=== PATIENT | female | born 1945 | race Caucasian/White ===

== ENCOUNTER 2020-02-13 15:01 | Inpatient (IN) | payer MEDICARE ==
[2020-02-13] MEDS ORDERED: Iopamidol-370 76% 500 ML 1 ML ONE (15:29)
[2020-02-13] MEDS ORDERED: Morphine 4 MG/ML VIAL ONE (15:32)
[2020-02-13 15:39] LABS: #Eosinphils 0.1 thou/uL (0.0-0.7); #Lymphocytes 1.8 thou/uL (1.20-3.40); #Monocytes 0.7 thou/uL (0.11-0.59); #Neutrophils 9.3 thou/uL (1.40-6.50); %Basophils 0.1 % (0.0-1.0); %Eosinophils 1.2 % (0.0-10.0); %Lymphocytes 14.9 % (21.0-51.0); %Monocytes 5.6 % (0.0-10.0); %Neutrophils 78.2 % (42.0-75.0); Hemoglobin 7.5 g/dL (12.0-16.0); Mean Corpuscular HGB CONC 33.6 g/dL (32.0-36.0); Mean Corpuscular Hemoglobin 28.3 pg (27.0-31.0); Mean Corpuscular Volume 84.1 fL (78.0-98.0); Mean Platelet Volume 7.4 fL (7.4-10.4); Platelet Count 262 thou/uL (130-400); RBC Distribution Width 14.8 % (11.5-14.5); Red Blood Cell (RBC) Count 2.67 mill/uL (4.20-5.40); White Blood Cell (WBC) Count 11.9 thou/uL (4.8-10.8)
[2020-02-13 15:57] LABS: ALT (SGPT) Less than 7 U/L (8-55); AST (SGOT) 12 U/L (5-34); Albumin 2.6 g/dL (3.4-4.8); Alkaline Phosphatase 72 U/L (40-110); Anion Gap 14 mmol/L (10-20); BUN (Urea Nitrogen) 19 mg/dL (9.8-20.1); Bilirubin, Total 0.3 mg/dL (0.2-1.2); Calc. Creatinine Clearance 0 mL/min (70-130); Calcium 8.6 mg/dL (7.8-10.44); Carbon Dioxide 24 mmol/L (23-31); Chloride 100 mmol/L (98-107); Estimated GFR-MDRD 66; Globulin 3.4 g/dL (2.4-3.5); Glucose 177 mg/dL (83-110); Potassium 3.2 mmol/L (3.5-5.1); Sodium 135 mmol/L (136-145)
[2020-02-13] MEDS ORDERED: Sodium Chloride 0.9% 100 ML ONE (16:02)
[2020-02-13] MEDS ORDERED: Cefepime 2 GM VIAL ONE (16:02)
[2020-02-13] MEDS ORDERED: Fentanyl 100 MCG/2 ML VIAL ONE (16:32)
[2020-02-13] MEDS ORDERED: Potassium Chloride 20 MEQ TAB ONE ×3 (16:32→22:20)
[2020-02-13] MEDS ORDERED: Vancomycin 1 GM/200 ML BAG ONE (16:32)
[2020-02-13 16:34] LABS: CK (CPK) 76 U/L (29-168); Lipase 12 U/L (8-78)
[2020-02-13] MEDS ORDERED: Magnesium 2 GM/50 ML BAG (IN WATER) ONE (16:44)
--- NOTE | 2020-02-13 17:33 | RAD ---
PORTABLE CHEST: 02/13/20 PROVIDED CLINICAL HISTORY: Dyspnea. FINDINGS: Comparison 02/01/20. Cardiac silhouette remains enlarged. Left upper extremity PICC line is noted, the tip of which termi nates in the expected location of SVC. No focal consolidation, pleural fluid or pneumothorax apparent. IMPRESSION: Cardiomegaly without evidence for an acute cardiopulmonary process. POS: MALLORY
[2020-02-13 17:38] LABS: Bilirubin Negative (Negative); Blood, Urine Trace (Negative); Clarity Extra Turbid (Clear); Glucose, Urine (Dipstick) Normal (Negative); Ketone, Urine Negative (Negative); Leukocyte 500 Leu/uL (Negative); Mucous/LPF 1+ LPF (<2+); Nitrite Negative (Negative); Protein, Urine (Dipstick) 50 mg/dL (Neg-Trace); Specific Gravity, Urine 1.023 (1.002-1.036); Urobilinogen Normal mg/dL (Less than 2); WBC/HPF Greater than 50 HPF (0-3); Yeast-Budding 4+ HPF (None Seen)
[2020-02-13 17:43] LABS: Bacteria/HPF 3+ HPF (None Seen); Calcium Oxalate Crystals 1+ HPF (None Seen); Squamous Epithelial 21-50 HPF (0-3)
--- NOTE | 2020-02-13 18:03 | CT ---
CTA Angio Chest W WO Con 02/13/2020 5:41 PM Indication: Rule out PE, history of hypotension and sacral osteomyelitis Technique: Multiple CTA images were obtained of the thorax with IV contrast. 3-D rendering: MIP jazmine nstructed images were created and reviewed. Comparison: No relevant prior studies available. Findings: Pulmonary arteries: No central or segmental pulmonary embolus is evident. Heart and Aorta: There is moderate cardiomegaly. There is coronary artery and thoracic aortic calcif ications. Mediastinum:There is contrast within the esophagus may reflect dysmotility or reflux. Lungs:There is mild left basilar atelectasis. There is calcified granuloma in the right lower lobe. Pleural space: There is a small left pleural effusion Upper Abdomen: Cirrhotic morphology of liver with splenomegaly Osseous Structures: There is scattered degenerative and osteoarthritic change present. There is diff use osteopenia. No acute fracture or subluxation demonstrated. Soft tissues:No abnormality. Other findings:None. Impression: No central or segmental pulmonary embolus. Moderate cardiomegaly with small left pleural effusion with basilar atelectasis. Cirrhosis with splenomegaly
--- NOTE | 2020-02-13 18:29 | CT ---
CT ABDOMEN AND PELVIS WITH IV CONTRAST: 02/13/20 PROVIDED CLINICAL HISTORY: Sacral wound. FINDINGS: Correlation is made with CT examination dated 03/30/19. There is a partially visualized left pleural effusion. The liver, spleen, pancreas, kidneys, and adrenal glands demonstrate no significant abnormality. Ther e is no bowel dilatation, free fluid, or free air apparent. Changes of mesh hernia repair seen involv ing the anterior abdominal wall in the upper abdomen. Similar changes are seen involving the infraumb ilical region. There is a large area of deficiency of cutaneous tissues and subcutaneous fat at the caudal aspects of marlen cleft. There is fragmentation and displacement of the coccyx, similar to prior study. The d ecubitus ulcer extends adjacent to the ischiorectal fossa fat. There is confluent soft tissue density inseparable from the anterior aspects of the sacral decubitus ulcer and posterior aspects of the rec martha. There is stranding within the presacral fat. There is poor definition to the dorsal cortex of the S2 and S3 segments, similar to prior, and possib ly on the basis of Tarlov cyst formation. There is no evidence for a well-defined fluid collection to suggest abscess. The osseous structures demonstrate no additional evidence for essentially acute abnormality. Degenera tive changes are seen. IMPRESSION: Extensive sacral decubitus ulcer, with a fistulous connection with the rectum not excluded. There is no evidence for focal fluid collections to suggest abscess. Chronic fragmentation and displacement of the coccyx presumably reflects osteomyelitis but this appears similar to prior study. POS: MALLORY
[2020-02-13] MEDS ORDERED: Acetaminophen 325 MG TAB PO PRN (20:01)
[2020-02-13] MEDS ORDERED: Acetaminophen 650 MG Suppository PR PRN (20:01)
--- NOTE | 2020-02-13 20:31 | PDOC.HHP ---
Hospitalist HPI - History of Present Illness sacral ulcer pain History of Present Illness: Case of an 74-year-old female with pmhx of cad chf dm who was recently admitted due to infected sacral ulcer stage 4 who presents from [facility] with complaints of sacral pain. Apparently patient was requesting IV morphine and refusing po meds refering they did not alleviate the pain. patient is currently on treatment of OM with rocephin flagyl and daptomycin. debridment was recommended in last admission but patient refused, there was some bedside debridment but pt was takeng to the ER. patient denies any fever chills nausea vomiting, does refer sacral pain 01/22 Hospitalist ROS - Review of Systems All other systems reviewed; all pertinent +/- noted in HPI/Subj Hospitalist History - Past Surgical History Past Surgical History: reports: Hernia Repair Other Surgical History: anal fissure repair, uterine abaltion - Family History Family History: reports: no pertinent history - Social History Smoking Status: Never smoker Alcohol: reports: None Drugs: reports: none - Exam General Appearance: NAD, awake alert Eye: PERRL, anicteric sclera ENT: normocephalic atraumatic, no oropharyngeal lesions Neck: supple, symmetric, no JVD Heart: RRR, no murmur, no gallops, no rubs Respiratory: CTAB, no wheezes, no rales Gastrointestinal: soft, non-tender, non-distended, normal bowel sounds Extremities: no cyanosis, no clubbing Skin: normal turgor, no lesions, no rashes Skin - other findings: stage 4 sacral ulcer Musculoskeletal: normal tone Psychiatric: normal affect, normal behavior, oriented to person, oriented to place Hospitalist Results - Labs Result Diagrams: 02/13/20 15:28 02/13/20 15:28 Lab results: WBC 11.9 thou/uL (4.8-10.8) H 02/13/20 15:28 Hgb 7.5 g/dL (12.0-16.0) L 02/13/20 15:28 Hct 22.4 % (36.0-47.0) L 02/13/20 15:28 MCV 84.1 fL (78.0-98.0) 02/13/20 15:28 Plt Count 262 thou/uL (130-400) 02/13/20 15:28 Neutrophils % 78.2 % (42.0-75.0) H 02/13/20 15:28 Sodium 135 mmol/L (136-145) L 02/13/20 15:28 Potassium 3.2 mmol/L (3.5-5.1) L 02/13/20 15:28 Chloride 100 mmol/L (98-107) 02/13/20 15:28 Carbon Dioxide 24 mmol/L (23-31) 02/13/20 15:28 BUN 19 mg/dL (9.8-20.1) 02/13/20 15:28 Creatinine 0.84 mg/dL (0.6-1.1) 02/13/20 15:28 Glucose 177 mg/dL (83-110) H 02/13/20 15:28 Lactic Acid 1.4 mmol/L (0.5-2.2) 02/13/20 15:28 Calcium 8.6 mg/dL (7.8-10.44) 02/13/20 15:28 Total Bilirubin 0.3 mg/dL (0.2-1.2) 02/13/20 15:28 AST 12 U/L (5-34) 02/13/20 15:28 ALT Less than 7 U/L (8-55) L 02/13/20 15:28 Alkaline Phosphatase 72 U/L (40-110) 02/13/20 15:28 Ammonia 48 umol/L (18-72) 02/13/20 18:27 Creatine Kinase 76 U/L (29-168) 02/13/20 16:11 Troponin I 0.027 ng/mL (< 0.028) 02/13/20 16:11 B-Natriuretic Peptide 53.6 pg/mL (0-100) 02/13/20 16:11 Serum Total Protein 6.0 g/dL (6.0-8.3) 02/13/20 15:28 Albumin 2.6 g/dL (3.4-4.8) L 02/13/20 15:28 Lipase 12 U/L (8-78) 02/13/20 16:11 Urine Ketones Negative mg/dL (Negative) 02/13/20 17:00 Urine Blood Trace (Negative) A 02/13/20 17:00 Urine Nitrite Negative (Negative) 02/13/20 17:00 Ur Leukocyte Esterase 500 Tyson/uL (Negative) A 02/13/20 17:00 Urine RBC 7-10 HPF (0-3) A 02/13/20 17:00 Urine WBC Greater than 50 HPF (0-3) A 02/13/20 17:00 Ur Squamous Epith Cells 21-50 HPF (0-3) A 02/13/20 17:00 Urine Bacteria 3+ HPF (None Seen) A 02/13/20 17:00 Hospitalist H&P A/P - Problem (1) Decubitus ulcer, stage 4 with infection Code(s): L89.94 - PRESSURE ULCER OF UNSPECIFIED SITE, STAGE 4; L08.9 - LOCAL INFECTION OF THE SKIN AND SUBCUTANEOUS TISSUE, UNSP Status: Acute (2) Bladder dysfunction Code(s): N31.9 - NEUROMUSCULAR DYSFUNCTION OF BLADDER, UNSPECIFIED Status: Acute (3) Diabetes mellitus Code(s): E11.9 - TYPE 2 DIABETES MELLITUS WITHOUT COMPLICATIONS Status: Acute (4) Hypokalemia Code(s): E87.6 - HYPOKALEMIA Status: Acute (5) Hypothyroidism Code(s): E03.9 - HYPOTHYROIDISM, UNSPECIFIED Status: Acute (6) Congestive heart failure Code(s): I50.9 - HEART FAILURE, UNSPECIFIED Status: Acute - Plan Plan: patient with the stated pmhx who presents due to pain on infected sacral ulcer infected sacral ulcer with OM - cotinue with rocephin + flagyl and daptomycin - wound care consulted - surgeon consulted - pain management uti - u/a consistent with uti - these could normal findings due to chronic thibodeaux use - should be covered w current abx regime dm - acc + ss hypothyroidism - continue synthroid chf - continue bb, acei stain asa and lasix,
[2020-02-13] MEDS ORDERED: Potassium Chloride 20 MEQ TAB PO SCH (20:45)
[2020-02-13] MEDS ORDERED: cefTRIAXone\\ROCEPHIN 1 GM in Sodium Chloride 0.9% 100 ML IVPB SCH (21:00)
[2020-02-13] MEDS ORDERED: HYDROcodone/Acetaminophen 7.5/325 mg Tablet ONE (22:20)
[2020-02-13] MEDS ORDERED: cefTRIAXone\\ROCEPHIN 1 GM VIAL ONE (22:20)
[2020-02-13] MEDS ORDERED: DAPTOmycin 500 MG in Sodium Chloride 0.9% 100 ML IVPB SCH (23:00)
[2020-02-13] MEDS ORDERED: HumaLOG 300 UNITS/3 ML VIAL SC PRN (23:41)
[2020-02-13] MEDS ORDERED: Dextrose 50% Abboject 50 ML SYRINGE SLOW IVP PRN (23:41)
[2020-02-13] MEDS ORDERED: Dextrose 5% in Water 1,000 ML IV PRN (23:41)
[2020-02-14] MEDS: metroNIDAZOLE 500 MG in Premix Bag 1 BAG IVPB SCH ×4 (00:41→22:45)
[2020-02-14] MEDS ORDERED: Sodium Chloride 0.9% 500 ML IV SCH ×2 (03:00→03:15)
[2020-02-14 05:17] LABS: ALT (SGPT) 7 U/L (8-55); AST (SGOT) 11 U/L (5-34); Albumin 2.4 g/dL (3.4-4.8); Alkaline Phosphatase 57 U/L (40-110); Anion Gap 13 mmol/L (10-20); BUN (Urea Nitrogen) 16 mg/dL (9.8-20.1); Bilirubin, Total 0.3 mg/dL (0.2-1.2); CK (CPK) 59 U/L (29-168); CRP (Inflammatory) 4.75 mg/dL (= or < 0.5); Calc. Creatinine Clearance 88 mL/min (70-130); Calcium 8.1 mg/dL (7.8-10.44); Carbon Dioxide 22 mmol/L (23-31); Chloride 106 mmol/L (98-107); Estimated GFR-MDRD 79; Globulin 3.2 g/dL (2.4-3.5); Glucose 137 mg/dL (83-110); Protein, Total 5.6 g/dL (6.0-8.3); Sodium 137 mmol/L (136-145)
[2020-02-14 05:18] LABS: Eosinophils 1 % (0-10); Hemoglobin 8.6 g/dL (12.0-16.0); Lymphocytes 11 % (21-51); MDiff Complete? YES; Mean Corpuscular HGB CONC 33.9 g/dL (32.0-36.0); Mean Corpuscular Volume 85.7 fL (78.0-98.0); Mean Platelet Volume 7.9 fL (7.4-10.4); Metamyelocyte 1 % (0-0); Monocytes 9 % (0-10); Neutrophil 78 % (42-75); Platelet Count 194 thou/uL (130-400); Platelet Morphology Comment Appears Adequate; RBC Distribution Width 14.4 % (11.5-14.5); RBC Morphology Normal; Red Blood Cell (RBC) Count 2.95 mill/uL (4.20-5.40); White Blood Cell (WBC) Count 8.7 thou/uL (4.8-10.8)
[2020-02-14] MEDS: Levothyroxine Sodium 75 MCG TAB PO SCH (05:59)
[2020-02-14] MEDS ORDERED: Fentanyl 100 MCG/2 ML VIAL ONE (06:33)
[2020-02-14] MEDS ORDERED: FLU VACC QS2020-21(65YR UP)/PF 240 MCG/0.7 ML SYRINGE IM ONE (09:00)
[2020-02-14] MEDS: Losartan 25 MG TAB PO SCH (09:51)
[2020-02-14] MEDS: Aspirin 81 mg Enteric Coated Tablet PO SCH (09:52)
[2020-02-14] MEDS: Furosemide 40 MG TAB PO SCH (09:52)
[2020-02-14] MEDS: Carvedilol 3.125 MG TAB PO SCH ×2 (09:52→18:29)
--- NOTE | 2020-02-14 13:28 | PDOC.HOSPP ---
- Subjective Encounter Date: 02/14/20 Subjective: Pt has no new complaints. Says she's willing to have I and D this time. - Objective Vital Signs & Weight: Vital Signs (12 hours) Temp Pulse Pulse Resp BP BP Pulse Ox 02/14/20 11:45 97.6 F 85 12 93/53 L 100 02/14/20 07:41 97.4 F L 86 16 115/59 L 100 02/14/20 07:40 100 02/14/20 03:48 100/58 L 02/14/20 02:25 97.6 F 63 18 89/43 L 100 Weight Weight 179 lb 7 oz I&O: 02/13/20 02/14/20 02/15/20 07:59 06:59 06:59 Intake Total Output Total Balance Result Diagrams: 02/14/20 04:17 02/14/20 04:17 Additional Labs: Accuchecks 02/14/20 06:25 POC Glucose 112 H Hospitalist ROS - Review of Systems Constitutional: denies: fever, chills, sweats, weakness, malaise, other Eyes: denies: pain, vision change, conjunctivae inflammation, eyelid inflammation, redness, other ENT: denies: ear pain, ear discharge, nose pain, nose discharge, nose congestion, mouth pain, mouth swelling, throat pain, throat swelling, other Respiratory: denies: cough, dry, shortness of breath, hemoptysis, SOB with excertion, pleuritic pain, sputum, wheezing, other Cardiovascular: denies: chest pain, palpitations, orthopnea, paroxysmal noc. dyspnea, edema, light headedness, other Gastrointestinal: denies: nausea, vomiting, abdominal pain, diarrhea, constipation, melena, hematochezia, other Genitourinary: denies: dysuria, frequency, incontinence, hematuria, retention, other Musculoskeletal: reports: other (sacral pain). denies: neck pain, shoulder pain, arm pain, back pain, hand pain, leg pain, foot pain Skin: reports: other (Decub ulcer) Neurological: denies: weakness, numbness, incoordination, change in speech, confusion, seizures, other - Medication Medications: Active Medications Generic Name Dose Route Start Last Admin Trade Name Freq PRN Reason Stop Dose Admin Aspirin 81 mg 02/14/20 09:00 02/14/20 09:52 Aspirin 81 Mg Enteric Coated Tablet PO 81 mg DAILY AUGUSTO Administration Carvedilol 3.125 mg 02/14/20 08:00 02/14/20 09:52 Carvedilol 3.125 Mg Tab PO 3.125 mg BID-WM AUGUSTO Administration Furosemide 40 mg 02/14/20 09:00 02/14/20 09:52 Furosemide 40 Mg Tab PO 40 mg DAILY AUGUSTO Administration Ceftriaxone Sodium 1 gm/ 100 mls @ 200 mls/hr 02/13/20 21:00 02/14/20 00:25 Sodium Chloride IVPB Not Given Q24HR AUGUSTO Metronidazole 500 mg/ Device 100 mls @ 100 mls/hr 02/13/20 22:00 02/14/20 05:58 IVPB 100 mls Q8HR AUGUSTO Administration Daptomycin 500 mg/ Sodium 100 mls @ 200 mls/hr 02/13/20 23:00 02/14/20 00:43 Chloride IVPB 100 mls Q24HR AUGUSTO Administration Levothyroxine Sodium 75 mcg 02/14/20 06:00 02/14/20 05:59 Levothyroxine Sodium 75 Mcg Tab PO Not Given 0600 [facility] Losartan Potassium 50 mg 02/14/20 09:00 02/14/20 09:51 Losartan 25 Mg Tab PO 50 mg DAILY AUGUSTO Administration - Exam General Appearance: NAD, awake alert Eye: PERRL, anicteric sclera ENT: normocephalic atraumatic, no oropharyngeal lesions Neck: supple, symmetric, no JVD, no thyromegaly Heart: RRR, no murmur, no gallops, no rubs Respiratory: CTAB, no wheezes, no rales, no ronchi Gastrointestinal: soft, non-tender, non-distended, normal bowel sounds Extremities: no cyanosis, no clubbing, no edema Skin: normal turgor, no lesions Skin - other findings: Decub ulcer. pls see pics Neurological: cranial nerve grossly intact, no focal deficits Musculoskeletal: normal strength, no muscle wasting Psychiatric: normal affect, normal behavior, A&O x 3 Hosp A/P (1) Congestive heart failure Code(s): I50.9 - HEART FAILURE, UNSPECIFIED Status: Acute Qualifiers: Heart failure chronicity: chronic Plan: Stable, cont med mgt. (2) Decubitus ulcer, stage 4 with infection Code(s): L89.94 - PRESSURE ULCER OF UNSPECIFIED SITE, STAGE 4; L08.9 - LOCAL INFECTION OF THE SKIN AND SUBCUTANEOUS TISSUE, UNSP Status: Acute Plan: Pt say she is willing for I and D. Will await Sx eval and recs (3) Degenerative joint disease Code(s): M19.90 - UNSPECIFIED OSTEOARTHRITIS, UNSPECIFIED SITE Status: Acute Plan: Cont pain mgt. 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 (5) Hypothyroidism Code(s): E03.9 - HYPOTHYROIDISM, UNSPECIFIED Status: Acute Qualifiers: Hypothyroidism type: unspecified Qualified Code(s): E03.9 - Hypothyroidism, unspecified Plan: Cont synthroid. Check TSH. (6) Osteomyelitis Code(s): M86.9 - OSTEOMYELITIS, UNSPECIFIED Status: Acute Qualifiers: Osteomyelitis location: other site Plan: Awaiting Sx eval. Pt may need and I and D. Will consult ID as well. - Plan continue antibiotics, DVT proph w/heparin PPx: SCDs and Heparin. CODE: FUll. Dispo: Await Sx eval.
[2020-02-14] MEDS: HYDROcodone/Acetaminophen 7.5/325 mg Tablet PO PRN (14:34)
[2020-02-14] MEDS ORDERED: DAPTOmycin 500 MG VIAL SLOW IVP SCH (17:45)
--- NOTE | 2020-02-14 18:10 | PDOC.CONS ---
- Consultation Encounter Date: 02/14/20 CHIEF COMPLAINT: Sacral pain HISTORY OF PRESENT ILLNESS: 74-year-old female with a complex medical history who was recently discharged with a stage IV sacral ulcer. I evaluated this patient at the [facility] 2 weeks ago. She was discharged yesterday to a SNF. During her last admission, she was evaluated by surgery, infectious disease, and wound care. Initially, the patient was reluctant to consider surgical debridement. She was seen by wound care and underwent bedside debridement with VAC placement. Dr. Gar evaluated the patient and recommended an antibiotic course due to her osteomyelitis. According to the patient, she woke up and her wound VAC had been removed. She was transferred back to the hospital with complaints of sacral pain. REVIEW OF SYSTEMS: 12 point review of systems obtained and is negative except as stated in the history of present illness PAST MEDICAL HISTORY: Coronary artery disease Congestive heart failure Diabetes mellitus Impaired mobility Severe degenerative joint disease and chronic pain PAST SURGICAL HISTORY: Hernia repair, fistulotomy, uterine ablation FAMILY HISTORY: Denies pertinent history SOCIAL HISTORY Never smoker, denies illicit drug use, endorses occasional alcohol consumption. ALLERGIES: Meperidine and penicillin PHYSICAL EXAM: Vital Signs: HR [ ] BP [ ] T [ ] RR [ ] SpO2 [ ] General: Alert and oriented, no acute distress ENT: Sclera anicteric, pupils equal and reactive, mucous membranes moist Neck: No jugular venous distention, trachea midline Cardiovascular: Regular rate and rhythm Pulmonary: Clear to auscultation Abdominal: Soft, nondistended, nontender Genitourinary: Normal anatomy Rectal: Deferred Sacrum: Large stage IV decubitus ulcer with superficial necrosis. Decreased discharge and purulence from last examination. Integument: No abnormal rashes or lesions Musculoskeletal: No gross deformities or edema, normal range of motion LABORATORY: Laboratory analysis reviewed and demonstrates a normal white blood cell count of 8.7. Hemoglobin stable at 8.6 IMAGING: Chest x-ray reviewed as well as radiologist interpretation and demonstrates stable cardiomegaly. Computed tomography of the abdomen and pelvis demonstrates a stage IV decubitus ulcer with associated osteomyelitis that is stable from her prior imaging. ASSESSMENT: 74-year-old comorbid female with stage IV sacral ulcer. PLAN: Recommend wound care consultation for repeat bedside debridement and VAC placement. Resume antibiotic therapy from previous infectious disease recommendations. We will continue to follow and consider surgical debridement if we are unable to achieve improvement with less invasive techniques. If we move towards surgical debridement, will require cardiac evaluation and clearance. Her last echocardiogram performed on February 02, 2020 demonstrates an ejection fraction of 35 to 39% with global systolic dysfunction. It is questionable whether she could tolerate a procedure in the prone position.
[2020-02-14] MEDS: traMADol HCl 50 MG TAB PO SCH ×2 (18:28→18:31)
[2020-02-14] MEDS: DAPTOmycin 500 MG in Sodium Chloride 0.9% 100 ML IVPB SCH (22:33)
[2020-02-14] MEDS: Naproxen 500 MG TAB PO SCH (22:38)
[2020-02-14] MEDS: Atorvastatin Calcium 20 MG TAB PO SCH (22:38)
[2020-02-14] MEDS: cefTRIAXone\\ROCEPHIN 2 GM in Sodium Chloride 0.9% 100 ML IVPB SCH (22:45)
[2020-02-15] MEDS: traMADol HCl 50 MG TAB PO SCH ×4 (00:43→18:21)
[2020-02-15 05:07] LABS: #Eosinphils 0.2 thou/uL (0.0-0.7); #Lymphocytes 1.6 thou/uL (1.20-3.40); #Monocytes 0.5 thou/uL (0.11-0.59); #Neutrophils 5.9 thou/uL (1.40-6.50); %Basophils 0.1 % (0.0-1.0); %Eosinophils 2.1 % (0.0-10.0); %Lymphocytes 19.3 % (21.0-51.0); %Monocytes 6.6 % (0.0-10.0); %Neutrophils 71.8 % (42.0-75.0); Hemoglobin 8.3 g/dL (12.0-16.0); Mean Corpuscular HGB CONC 33.4 g/dL (32.0-36.0); Mean Corpuscular Hemoglobin 28.6 pg (27.0-31.0); Mean Corpuscular Volume 85.4 fL (78.0-98.0); Mean Platelet Volume 7.5 fL (7.4-10.4); Platelet Count 259 thou/uL (130-400); RBC Distribution Width 14.8 % (11.5-14.5); Red Blood Cell (RBC) Count 2.92 mill/uL (4.20-5.40); White Blood Cell (WBC) Count 8.2 thou/uL (4.8-10.8)
[2020-02-15 05:28] LABS: Anion Gap 12 mmol/L (10-20); BUN (Urea Nitrogen) 11 mg/dL (9.8-20.1); Calc. Creatinine Clearance 100 mL/min (70-130); Calcium 8.4 mg/dL (7.8-10.44); Carbon Dioxide 24 mmol/L (23-31); Chloride 104 mmol/L (98-107); Estimated GFR-MDRD 85; Glucose 106 mg/dL (83-110); Potassium 4.1 mmol/L (3.5-5.1); Sodium 136 mmol/L (136-145)
[2020-02-15] MEDS: Levothyroxine Sodium 75 MCG TAB PO SCH ×2 (06:23→06:24)
[2020-02-15] MEDS: metroNIDAZOLE 500 MG in Premix Bag 1 BAG IVPB SCH ×3 (06:23→21:21)
[2020-02-15] MEDS: Carvedilol 3.125 MG TAB PO SCH ×2 (09:11→18:21)
[2020-02-15] MEDS: Clopidogrel Bisulfate 75 MG TAB PO SCH (09:11)
[2020-02-15] MEDS: Furosemide 40 MG TAB PO SCH (09:11)
[2020-02-15] MEDS: Potassium Chloride 10 MEQ TAB PO SCH (09:11)
[2020-02-15] MEDS: Losartan 25 MG TAB PO SCH (09:11)
[2020-02-15] MEDS: Naproxen 500 MG TAB PO SCH (09:11)
[2020-02-15] MEDS: Aspirin 81 mg Enteric Coated Tablet PO SCH (09:12)
--- NOTE | 2020-02-15 10:22 | PDOC.BPN ---
- Brief Progress Note Encounter Date: 02/15/20 Encounter Time: 10:22 Doing well. No acute events overnight EXAM: VS: T 97.6 HR 69 BP 100/51 RR 16 SpO2 [ ] General: Alert and oriented, no acute distress, resting comfortably Pulmonary: No dyspnea or difficulty breathing Abdomen: Soft, non-distended, nontender. CV: Regular rate and rhythm, palpable distal pulses Extremities: No edema Sacrum: Stable decubitus ulcer I/O: [ ] oral intake [ ] UOP LABORATORY / IMAGING: White blood cell count 8.2. Hemoglobin 8.3, otherwise grossly normal PLAN: 74-year-old female with large, stage IV sacral decubitus ulcer with osteomyelitis of the distal sacrum and coccyx. We will plan for operative debridement, wound VAC placement, and coccygectomy. The relative risks and benefits of this procedure were discussed in detail with the patient, specifically addressing the risk of wound complications and the need for additional procedures. Informed consent was obtained. Discussed with hospitalist team, will obtain cardiac clearance preoperatively. Procedure tentatively scheduled for February 16, 2020
--- NOTE | 2020-02-15 11:14 | PDOC.HOSPP ---
- Subjective Encounter Date: 02/15/20 Subjective: No new issues. - Objective Vital Signs & Weight: Vital Signs (12 hours) Temp Pulse Resp BP Pulse Ox 02/15/20 07:45 100 02/15/20 07:43 97.6 F 69 16 100/51 L 99 02/15/20 04:32 97.4 F L 88 18 140/61 100 Weight Weight 193 lb 4 oz I&O: 02/14/20 02/15/20 02/16/20 06:59 06:59 06:59 Intake Total 720 Output Total 1800 Balance -1080 Result Diagrams: 02/15/20 04:17 02/15/20 04:16 Additional Labs: Accuchecks 02/15/20 02/14/20 02/14/20 05:45 20:29 17:24 POC Glucose 116 H 118 H 148 H Hospitalist ROS - Review of Systems Constitutional: denies: fever, chills, sweats, weakness, malaise, other Eyes: denies: pain, vision change, conjunctivae inflammation, eyelid inflammation, redness, other ENT: denies: ear pain, ear discharge, nose pain, nose discharge, nose congestion, mouth pain, mouth swelling, throat pain, throat swelling, other Respiratory: denies: cough, dry, shortness of breath, hemoptysis, SOB with excertion, pleuritic pain, sputum, wheezing, other Cardiovascular: denies: chest pain, palpitations, orthopnea, paroxysmal noc. dyspnea, edema, light headedness, other Gastrointestinal: denies: nausea, vomiting, abdominal pain, diarrhea, constipation, melena, hematochezia, other Genitourinary: denies: dysuria, frequency, incontinence, hematuria, retention, other Musculoskeletal: denies: neck pain, shoulder pain, arm pain, back pain, hand pain, leg pain, foot pain, other Skin: denies: rash, lesions, noreen, bruising, other Neurological: denies: weakness, numbness, incoordination, change in speech, confusion, seizures, other - Medication Medications: Active Medications Generic Name Dose Route Start Last Admin Trade Name Freq PRN Reason Stop Dose Admin Hydrocodone Bitart/Acetaminophen 2 tab 02/13/20 20:01 02/14/20 14:34 Hydrocodone/Acetaminophen 7.5/325 Mg Tablet PO 2 tab Q4H PRN Administration Severe Pain (7-10) Aspirin 81 mg 02/14/20 09:00 02/15/20 09:12 Aspirin 81 Mg Enteric Coated Tablet PO 81 mg DAILY AUGUSTO Administration Atorvastatin Calcium 20 mg 02/14/20 21:00 02/14/20 22:38 Atorvastatin Calcium 20 Mg Tab PO 20 mg HS AUGUSTO Administration Carvedilol 3.125 mg 02/14/20 08:00 02/15/20 09:11 Carvedilol 3.125 Mg Tab PO 3.125 mg BID-WM AUGUSTO Administration Clopidogrel Bisulfate 75 mg 02/15/20 09:00 02/15/20 09:11 Clopidogrel Bisulfate 75 Mg Tab PO 75 mg DAILY AUGUSTO Administration Furosemide 40 mg 02/14/20 09:00 02/15/20 09:11 Furosemide 40 Mg Tab PO 40 mg DAILY AUGUSTO Administration Metronidazole 500 mg/ Device 100 mls @ 100 mls/hr 02/13/20 22:00 02/15/20 06:23 IVPB 100 mls Q8HR AUGUSTO Administration Daptomycin 500 mg/ Sodium 100 mls @ 200 mls/hr 02/14/20 22:00 02/14/20 22:33 Chloride IVPB 100 mls Q24HR AUGUSTO Administration Ceftriaxone Sodium 2 gm/ 100 mls @ 200 mls/hr 02/14/20 21:00 02/14/20 22:45 Sodium Chloride IVPB 100 mls Q24HR AUGUSTO Administration Levothyroxine Sodium 75 mcg 02/15/20 06:00 02/15/20 06:23 Levothyroxine Sodium 75 Mcg Tab PO 75 mcg 0600 AUGUSTO Administration Losartan Potassium 50 mg 02/14/20 09:00 02/15/20 09:11 Losartan 25 Mg Tab PO 50 mg DAILY AUGUSTO Administration Naproxen 500 mg 02/14/20 21:00 02/15/20 09:11 Naproxen 500 Mg Tab PO 500 mg BID AUGUSTO Administration Pantoprazole Sodium 40 mg 02/15/20 09:00 02/15/20 09:11 Pantoprazole 40 Mg Tab PO 40 mg DAILY AUGUSTO Administration Potassium Chloride 10 meq 02/15/20 08:00 02/15/20 09:11 Potassium Chloride 10 Meq Tab PO 10 meq QAM-WM AUGUSTO Administration Tramadol HCl 50 mg 02/14/20 18:00 02/15/20 06:22 Tramadol Hcl 50 Mg Tab PO 50 mg Q6HR AUGUSTO Administration - Exam General Appearance: NAD, awake alert Eye: PERRL, anicteric sclera ENT: normocephalic atraumatic, no oropharyngeal lesions Neck: supple, symmetric, no JVD, no thyromegaly Heart: RRR, no gallops, no rubs Respiratory: CTAB, no wheezes, no rales, no ronchi Gastrointestinal: soft, non-tender, non-distended, normal bowel sounds Extremities: no clubbing, no edema Skin - other findings: Stage 4 decub ulcer. See pics Neurological: cranial nerve grossly intact, no focal deficits Musculoskeletal: normal tone Psychiatric: normal affect, normal behavior, A&O x 3, oriented to place Hosp A/P (1) Congestive heart failure Code(s): I50.9 - HEART FAILURE, UNSPECIFIED Status: Acute Qualifiers: Heart failure chronicity: chronic Plan: Stable. Cont med mgt. (2) Decubitus ulcer, stage 4 with infection Code(s): L89.94 - PRESSURE ULCER OF UNSPECIFIED SITE, STAGE 4; L08.9 - LOCAL INFECTION OF THE SKIN AND SUBCUTANEOUS TISSUE, UNSP Status: Acute Plan: D/w Sx, pt will be taken to the OR tmr for I and D and wound vac placement. Will need cardiac clearance. Have consulted Dr Ambrosio. Make NPO at HI. Cont current abx. f/u w further ID recs. (3) Degenerative joint disease Code(s): M19.90 - UNSPECIFIED OSTEOARTHRITIS, UNSPECIFIED SITE Status: Acute Plan: Stable, will give pain meds as indicted. 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 Cont current BG meds, cover with SSI. (5) Hypothyroidism Code(s): E03.9 - HYPOTHYROIDISM, UNSPECIFIED Status: Acute Qualifiers: Hypothyroidism type: unspecified Qualified Code(s): E03.9 - Hypothyroidism, unspecified Plan: Stable, cont Synthroid. (6) Osteomyelitis Code(s): M86.9 - OSTEOMYELITIS, UNSPECIFIED Status: Acute Qualifiers: Osteomyelitis location: other site Plan: Cont Current abx of Rocephin, Flagyl and Daptomycin per prior ID recs. Duration of abx to be determined by ID. Pt may need PICC line for oysterman abx coverage. F/u ID recs, - Plan continue antibiotics, DVT proph w/heparin PPx: SCDs and Heparin. CODE: FUll. Dispo: Sx (I and D, wound vac placement) tmr. Need cardiac clearance Cardiac recs pending.
[2020-02-15 12:58] LABS: SARS-CoV-2 MS2 Positive; SARS-CoV-2 N Gene Negative; SARS-CoV-2 S Gene Negative; SARS-CoV-2 by NAA Not Detected (NotDetected); SARS-CoV-2 orf1ab Negative
[2020-02-15] MEDS ORDERED: cefTRIAXone\\ROCEPHIN 2 GM VIAL IVPB SCH (17:00)
[2020-02-15] MEDS: cefTRIAXone\\ROCEPHIN 2 GM in Sodium Chloride 0.9% 100 ML IVPB SCH (21:22)
--- NOTE | 2020-02-15 22:25 | CON ---
DATE OF CONSULTATION: HISTORY OF PRESENT ILLNESS: Ms. Damon is a 74-year-old lady, whom I had seen a few days ago at the [facility] that was done on February 06 when I initially saw her. She has a history of coronary artery disease, CHF, type 2 diabetes, rotator cuff tear, osteoarthritis with severe mobility impairment and had been bedridden for many months at home and developed pressure ulcerations in the presacral region and ischial areas. Those wounds have been going on for four months before she was admitted. She initially declined surgical debridement, but then eventually consented to it that was performed at the bedside and no samples were submitted for culture that I am aware of. She had one swab culture from the area on the , which revealed vancomycin-resistant Enterococcus, so she had been transferred to the retirement on daptomycin as well as oral Flagyl and Rocephin. There at the retirement, she developed a lot of pain and was transferred almost the next day back to the hospital at this time to this hospital in [place]. She was having some loose stools as well, so she was placed on enteric precautions. Right now, she is feeling much more comfortable. Apparently, they were not giving her the pain medication at the retirement, so initial vital signs with blood pressure 91/44, pulse 84, respirations 19, O2 saturation 100%, and temperature 97.7. She appeared to be in distress from pain. Lungs are clear. Abdomen is soft. She had a Howell catheter in place and a large sacral stage IV ulcer, very deep. She had a CT angiogram on admission, chest and abdomen and pelvis, and there was no evidence of pulmonary embolism. There was moderate cardiomegaly with small left pleural effusion and cirrhosis with splenomegaly. Abdomen and pelvis CT with large area of subcutaneous tissue deficiency and subcutaneous fat at the caudal aspect fragmentation and displacement of the coccyx. The decubitus ulcer extended adjacent to the ischiorectal fossa fat. There was a confluent soft tissue density inseparable from the anterior aspect of the sacral decubitus and posterior aspects of the rectum. No abscess was noticed. This was with contrast study. Currently, Ms. Damon is feeling comfortable in bed. She does not have any pain or problems right now. No headaches. No visual symptoms, sore throat, odynophagia, or dysphagia. No cough, sputum production, or dyspnea. No abdominal pain. She has a Howell catheter. She is diffusely weak. She is able to wiggle her toes, but that is the extent of her movements in the lower extremities. PAST MEDICAL HISTORY: Includes CHF, coronary artery disease, type 2 diabetes, rotator cuff, osteoarthritis, stage IV pressure ulcerations in presacral region and ischial areas. PAST SURGICAL HISTORY: Includes anal fissure repair with uterine ablation, hernia repair. She also has evidence of cirrhosis probably steatohepatitis with portal hypertension and splenomegaly. SOCIAL HISTORY: Never smoker. She used to live at home. ALLERGIES: PENICILLIN WITH RASH. LIST OF MEDICATIONS: At this time, she is receivin. Coreg. 2. Ceftriaxone. 3. Daptomycin. 4. Metronidazole. 5. Pantoprazole. 6. Tramadol. PHYSICAL EXAMINATION: VITAL SIGNS: T-max 98.2, blood pressure 103/65, heart rate 77, respiratory rate 16, and O2 saturation 97%. GENERAL: This necrotic ulcer in the presacral region with some areas of tissue that had developed necrosis again, some undermining noted as well. Diffuse narrow smaller and more superficial areas of abrasion in the back. An area of ulceration in the medial aspect of the left first MPJ skin site round-shaped about 2 cm. The base is mostly red when area more purplish discoloration. There is the area of amputation of the previous second toe left side still open. There was absence of the nail in the left first toe. Most of the nails are missing on the left side. On the right side, two of the nails are missing, the first and second toes. She appears chronically ill, but in no acute distress, somewhat dishevelled. HEENT: Ocular movements conjugate. Pupils are equal. Conjunctivae are somewhat pale. Oral cavity with numerous missing teeth. NECK: Supple. No jugular vein distention. LUNGS: Symmetric. Clear breath sounds. There is a somewhat harsh 2/6 systolic murmur at the aortic and pulmonic areas. ABDOMEN: Soft. Not distended or tender. No ascites. No bladder distention. She has a marked atrophy of musculature of the appendicular structures. EXTREMITIES: She is able to wiggle her toes, but that is the extent of her movements in the lower extremities. She is able to lift her upper extremities from the bed. NEUROLOGIC: She is awake. Her speech appears to be normal. Recollection is preserved. LABORATORY DATA: White cell count 11.9 down to 8.2, hemoglobin 8.3, platelets 259 with 71% neutrophils, 19% lymphocytes. D-dimer 0.78. Sodium 136, creatinine 0.68. Liver profile is normal. CRP 4.75, albumin 2.4, globulin 3.2. Lipase is 12. TSH 0.39. Urinalysis with greater than 50 wbc's. SARS-CoV-2 PCR negative. The patient had the imaging studies described. ASSESSMENT: Coronary artery disease, ischemic cardiomyopathy, type 2 diabetes, peripheral vascular disease, second left toe osteomyelitis with amputation, stage IV presacral decubitus ulcer with recent admission with a bedside debridement and transfer to a retirement for IV antimicrobial therapy with immediate readmission because of poorly controlled pain. She is having also some diarrhea now. There is concern with Clostridium difficile colitis. I believe the stool test is pending for that. DISCUSSION: The patient has been evaluated by Dr. Valenzuela again and operative debridement is scheduled, I believe tomorrow for more thorough resection of the nonviable tissues and application of negative pressure dressing again, and continuation of the same antimicrobial therapy, sampling of the deep tissues in the bone recommended for further microbiology evaluation. She will again have to be transferred to a skilled unit for antimicrobial therapy and specialized wound management. The end date of treatment is around March 26 approximately. Nutritional improvement is also goal target of therapy. Job ID: [id number]
[2020-02-15] MEDS: Atorvastatin Calcium 20 MG TAB PO SCH (22:39)
[2020-02-15] MEDS: Heparin 5,000 UNITS/ML VIAL SC SCH (22:39)
[2020-02-15] MEDS: HYDROcodone/Acetaminophen 7.5/325 mg Tablet PO PRN (22:39)
--- NOTE | 2020-02-15 23:01 | CON ---
DATE OF CONSULTATION: 02/15/2020 REASON FOR CONSULTATION: Preoperative evaluation. Manager [employer] who had previously seen Ms. Damon is Dr. Tobin, [facility]. HISTORY OF PRESENT ILLNESS: Ms. Damon is a 74-year-old woman who looks like she has sacral decubitus ulcer with possible osteomyelitis, may need debridement. She was recently in the hospital at [facility], where Dr. Tobin saw her. There was initially some concern that she had atrial fibrillation, but it looked like actually it was sinus tachycardia with PACs. No history of atrial fibrillation. 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 Remote history of myocardial infarction with previous stents. No chest pain, pressure, heaviness, or squeezing. No shortness of breath. The patient has diabetes and hypertension. PAST MEDICAL HISTORY: As outlined above. PAST SURGICAL HISTORY: Cholecystectomy, ventral hernia repair, and coronary stenting. SOCIAL HISTORY: Greater than [id number] history of smoking. Ex-smoker. MEDICATIONS: She is on: 1. Antibiotics. 2. Aspirin 81 mg a day. 3. Carvedilol 3.125 mg twice a day. 4. Atorvastatin 20 mg a day. 5. Lasix. 6. Heparin. PHYSICAL EXAMINATION: GENERAL: This is a chronically ill-appearing woman, very pleasant, delightful elderly woman, who looks much older than her chronologic age. VITAL SIGNS: Blood pressure 103/65, pulse 76 and regular. LUNGS: Clear. CARDIAC: There is a harsh 2 to 3/6 systolic murmur, loudest in left upper sternal border. No diastolic murmur. No S3. ABDOMEN: Soft and nontender. EXTREMITIES: Warm and dry. No clubbing. No cyanosis or edema. SKIN: Warm and dry. IMAGING DATA: Recent echocardiogram done 02/02/2020, revealed ejection fraction 35% to 39%, mild left ventricular hypertrophy, thickened aortic valve leaflets with decreased valve opening. Doppler study was not performed in the aortic valve. EKG has revealed sinus rhythm with a first-degree AV block and poor R-wave progression. There is a rhythm strip from the emergency room that looks like it is probably artifactual lead movement, no other arrhythmias. ASSESSMENT: 1. Sacral decubitus, may need surgical therapy. 2. Probably has some degree of aortic stenosis. I suspect it is moderate from the murmur, but apparently a Doppler was not done. PLAN: 1. Okay to proceed to surgical therapy whenever it is desired. 2. We will repeat the echocardiogram Doppler. Job ID: [id number]
[2020-02-15] MEDS: DAPTOmycin 500 MG in Sodium Chloride 0.9% 100 ML IVPB SCH (23:50)
[2020-02-16] MEDS: traMADol HCl 50 MG TAB PO SCH ×5 (02:05→23:53)
[2020-02-16 04:53] LABS: #Eosinphils 0.2 thou/uL (0.0-0.7); #Lymphocytes 1.7 thou/uL (1.20-3.40); #Monocytes 0.6 thou/uL (0.11-0.59); #Neutrophils 5.7 thou/uL (1.40-6.50); %Basophils 0.6 % (0.0-1.0); %Eosinophils 2.4 % (0.0-10.0); %Lymphocytes 21.2 % (21.0-51.0); %Monocytes 6.8 % (0.0-10.0); Hemoglobin 8.2 g/dL (12.0-16.0); Mean Corpuscular HGB CONC 33.7 g/dL (32.0-36.0); Mean Corpuscular Hemoglobin 28.7 pg (27.0-31.0); Mean Corpuscular Volume 85.1 fL (78.0-98.0); Mean Platelet Volume 7.3 fL (7.4-10.4); Platelet Count 249 thou/uL (130-400); RBC Distribution Width 15.2 % (11.5-14.5); Red Blood Cell (RBC) Count 2.86 mill/uL (4.20-5.40); White Blood Cell (WBC) Count 8.2 thou/uL (4.8-10.8)
[2020-02-16 05:08] LABS: Anion Gap 12 mmol/L (10-20); BUN (Urea Nitrogen) 15 mg/dL (9.8-20.1); Calc. Creatinine Clearance 99 mL/min (70-130); Calcium 8.2 mg/dL (7.8-10.44); Carbon Dioxide 25 mmol/L (23-31); Chloride 101 mmol/L (98-107); Estimated GFR-MDRD 83; Glucose 158 mg/dL (83-110); Potassium 4.1 mmol/L (3.5-5.1); Sodium 134 mmol/L (136-145)
[2020-02-16] MEDS: Levothyroxine Sodium 75 MCG TAB PO SCH (05:53)
[2020-02-16] MEDS: metroNIDAZOLE 500 MG in Premix Bag 1 BAG IVPB SCH ×3 (05:54→22:20)
[2020-02-16] MEDS: Aspirin 81 mg Enteric Coated Tablet PO SCH (09:47)
[2020-02-16] MEDS: Heparin 5,000 UNITS/ML VIAL SC SCH ×2 (09:47→19:49)
[2020-02-16] MEDS ORDERED: PROPOFOL 200 MG/20 ML VIAL ONE (13:09)
[2020-02-16] MEDS ORDERED: Lidocaine 1% PF 5 ML VIAL ONE (13:09)
[2020-02-16] MEDS ORDERED: Rocuronium Bromide 10 MG/ML (10ML VIAL) ONE (13:09)
[2020-02-16] MEDS ORDERED: Glycopyrrolate 0.2 MG/ML 5 ML SYRINGE ONE (13:09)
[2020-02-16] MEDS ORDERED: PHENYLEPHRINE-NS 100 MCG/ML 10 ML SYRINGE ONE (13:09)
[2020-02-16] MEDS ORDERED: Fentanyl 100 MCG/2 ML VIAL ONE ×2 (13:39→16:20)
[2020-02-16] MEDS ORDERED: Midazolam HCl 2 mg/2 ml Vial ONE (13:39)
--- NOTE | 2020-02-16 14:24 | PDOC.HOSPP ---
- Subjective Encounter Date: 02/16/20 - Objective Vital Signs & Weight: Vital Signs (12 hours) Temp Pulse Resp BP BP Pulse Ox 02/16/20 11:40 97.3 F L 69 16 105/58 L 98 02/16/20 07:52 96.5 F L 70 16 98/51 L 99 02/16/20 04:00 98.3 F 71 18 99/56 L 98 Weight Admit Weight 179 lb 7 oz Weight 195 lb I&O: 02/15/20 02/16/20 02/17/20 06:59 06:59 06:59 Intake Total 720 480 Output Total 1800 625 Balance -1080 -145 Result Diagrams: 02/16/20 04:00 02/16/20 04:00 Additional Labs: Accuchecks 02/16/20 02/16/20 02/15/20 10:49 05:31 16:43 POC Glucose 126 H 158 H 126 H Hospitalist ROS - Medication Medications: Active Medications Generic Name Dose Route Start Last Admin Trade Name Freq PRN Reason Stop Dose Admin Hydrocodone Bitart/Acetaminophen 2 tab 02/13/20 20:01 02/15/20 22:39 Hydrocodone/Acetaminophen 7.5/325 Mg Tablet PO 2 tab Q4H PRN Administration Severe Pain (7-10) Aspirin 81 mg 02/14/20 09:00 02/16/20 09:47 Aspirin 81 Mg Enteric Coated Tablet PO Not Given DAILY AUGUSTO Atorvastatin Calcium 20 mg 02/14/20 21:00 02/15/20 22:39 Atorvastatin Calcium 20 Mg Tab PO 20 mg HS AUGUSTO Administration Carvedilol 3.125 mg 02/14/20 08:00 02/15/20 18:21 Carvedilol 3.125 Mg Tab PO 3.125 mg BID-WM AUGUSTO Administration Clopidogrel Bisulfate 75 mg 02/15/20 09:00 02/15/20 09:11 Clopidogrel Bisulfate 75 Mg Tab PO 75 mg DAILY AUGUSTO Administration Furosemide 40 mg 02/14/20 09:00 02/15/20 09:11 Furosemide 40 Mg Tab PO 40 mg DAILY AUGUSTO Administration Heparin Sodium (Porcine) 5,000 units 02/15/20 21:00 02/16/20 09:47 Heparin 5,000 Units/Ml Vial SC Not Given BID AUGUSTO Metronidazole 500 mg/ Device 100 mls @ 100 mls/hr 02/13/20 22:00 02/16/20 05:54 IVPB 100 mls Q8HR AUGUSTO Administration Daptomycin 500 mg/ Sodium 100 mls @ 200 mls/hr 02/14/20 22:00 02/15/20 23:50 Chloride IVPB 100 mls Q24HR AUGUSTO Administration Ceftriaxone Sodium 2 gm/ 100 mls @ 200 mls/hr 02/14/20 21:00 02/15/20 21:22 Sodium Chloride IVPB 100 mls Q24HR AUGUSTO Administration Levothyroxine Sodium 75 mcg 02/15/20 06:00 02/16/20 05:53 Levothyroxine Sodium 75 Mcg Tab PO 75 mcg 0600 AUGUSTO Administration Losartan Potassium 50 mg 02/14/20 09:00 02/15/20 09:11 Losartan 25 Mg Tab PO 50 mg DAILY AUGUSTO Administration Pantoprazole Sodium 40 mg 02/15/20 09:00 02/15/20 09:11 Pantoprazole 40 Mg Tab PO 40 mg DAILY AUGUSTO Administration Potassium Chloride 10 meq 02/15/20 08:00 02/15/20 09:11 Potassium Chloride 10 Meq Tab PO 10 meq QAM-WM AUGUSTO Administration Tramadol HCl 50 mg 02/14/20 18:00 02/16/20 05:53 Tramadol Hcl 50 Mg Tab PO 50 mg Q6HR AGUUSTO Administration - Exam ENT: normocephalic atraumatic Heart: RRR, no murmur, no gallops, no rubs, normal peripheral pulses Respiratory: CTAB, no wheezes, no rales, no ronchi, normal chest expansion Gastrointestinal: soft, non-tender, non-distended, normal bowel sounds Hosp A/P (1) Osteomyelitis Code(s): M86.9 - OSTEOMYELITIS, UNSPECIFIED Status: Acute Qualifiers: Osteomyelitis location: other site (2) Congestive heart failure Code(s): I50.9 - HEART FAILURE, UNSPECIFIED Status: Acute Qualifiers: Heart failure chronicity: chronic (3) Decubitus ulcer, stage 4 with infection Code(s): L89.94 - PRESSURE ULCER OF UNSPECIFIED SITE, STAGE 4; L08.9 - LOCAL INFECTION OF THE SKIN AND SUBCUTANEOUS TISSUE, UNSP Status: Acute (4) Hypothyroidism Code(s): E03.9 - HYPOTHYROIDISM, UNSPECIFIED Status: Acute Qualifiers: Hypothyroidism type: unspecified Qualified Code(s): E03.9 - Hypothyroidism, unspecified - Plan Plan for surgical debridement of the decubitus ulcer today. Once the patient recovers from her surgery, we will plan to [facility] to complete her IV antibiotics until March 26 per ID recommendations.
--- NOTE | 2020-02-16 15:42 | PDOC.OP ---
Operative Note - Operative Note Operative Note: DATE OF SURGERY: February 16, 2020 SURGEON: John Valenzuela MD PREOPERATIVE DIAGNOSIS: Stage IV sacral decubitus ulcer (15 cm x 14 cm) POSTOPERATIVE DIAGNOSIS: Same PROCEDURE: Sharp debridement of sacral decubitus ulcer to include skin, subcutaneous tissues, fascia, and muscle. INDICATIONS: 74-year-old female with a history of significant degenerative joint disease who is immobile. She has developed a sacral decubitus ulcer that has not responded to conservative therapy. PROCEDURE IN DETAIL: The patient was brought to the operating room and intubated in her patient bed. She was then positioned in a prone position on the operating room table. She is prepared and draped in the usual fashion. Prior to beginning the procedure, a complete timeout performed with all members of the operative team being present and in agreement. The decubitus ulcer was measured to be 15 cm x 14 cm. It was found to involve skin, subcutaneous tissue, muscle, fascia, and bone. Sharp dissection was performed until healthy tissue was encountered. The entirety of the wound required debridement. Debridement continued until healthy bleeding tissue was encountered. The coccyx was not able to be identified. The base of the sacrum was debrided. The wound was irrigated and hemostasis achieved. A negative pressure wound therapy device was applied in the usual fashion. At the conclusion of the case, all sponge and estimate counts were correct. ESTIMATED BLOOD LOSS: Minimal COMPLICATIONS: None INTRAOPERATIVE BLOOD TRANSFUSIONS: None GRAFTS / IMPLANTS: None SPECIMENS: None DISPOSITION: The patient was transported to the postoperative recovery unit in good conditions to be turned to the floor When criteria met.
[2020-02-16] MEDS ORDERED: Promethazine HCl 25 MG/ML VIAL IM PRN (16:15)
[2020-02-16] MEDS ORDERED: Ondansetron HCl/PF 4 MG/2 ML Vial IVP PRN (16:15)
[2020-02-16] MEDS ORDERED: Promethazine HCl 25 MG/ML VIAL SLOW IVP PRN (16:15)
[2020-02-16] MEDS: Carvedilol 3.125 MG TAB PO SCH ×2 (18:08→18:10)
[2020-02-16] MEDS: Furosemide 40 MG TAB PO SCH (18:10)
[2020-02-16] MEDS: Potassium Chloride 10 MEQ TAB PO SCH (18:10)
[2020-02-16] MEDS: Clopidogrel Bisulfate 75 MG TAB PO SCH (18:10)
[2020-02-16] MEDS: Losartan 25 MG TAB PO SCH (18:10)
[2020-02-16] MEDS: cefTRIAXone\\ROCEPHIN 2 GM in Sodium Chloride 0.9% 100 ML IVPB SCH (19:50)
[2020-02-16] MEDS: Atorvastatin Calcium 20 MG TAB PO SCH (19:50)
[2020-02-16] MEDS: HYDROcodone/Acetaminophen 7.5/325 mg Tablet PO PRN (19:51)
[2020-02-16] MEDS: DAPTOmycin 500 MG in Sodium Chloride 0.9% 100 ML IVPB SCH (21:37)
[2020-02-17] MEDS: HYDROcodone/Acetaminophen 7.5/325 mg Tablet PO PRN ×2 (04:13→09:17)
[2020-02-17] MEDS: Levothyroxine Sodium 75 MCG TAB PO SCH (05:31)
[2020-02-17] MEDS: traMADol HCl 50 MG TAB PO SCH ×4 (05:31→23:17)
[2020-02-17] MEDS: metroNIDAZOLE 500 MG in Premix Bag 1 BAG IVPB SCH ×3 (05:32→22:55)
[2020-02-17] MEDS: Potassium Chloride 10 MEQ TAB PO SCH (09:17)
[2020-02-17] MEDS: Clopidogrel Bisulfate 75 MG TAB PO SCH (09:18)
[2020-02-17] MEDS: Aspirin 81 mg Enteric Coated Tablet PO SCH (09:18)
[2020-02-17] MEDS: Furosemide 40 MG TAB PO SCH (09:18)
[2020-02-17] MEDS: Heparin 5,000 UNITS/ML VIAL SC SCH ×2 (09:19→21:38)
[2020-02-17] MEDS: Losartan 25 MG TAB PO SCH (09:19)
[2020-02-17] MEDS: Carvedilol 3.125 MG TAB PO SCH ×2 (09:19→17:56)
--- NOTE | 2020-02-17 14:44 | PDOC.HOSPP ---
- Subjective Encounter Date: 02/17/20 Subjective: The patient is alert and oriented today. Chief complaint of low back pain. - Objective Vital Signs & Weight: Vital Signs (12 hours) Temp Pulse Resp BP Pulse Ox 02/17/20 11:11 98.0 F 78 16 117/57 L 97 02/17/20 09:21 120/64 02/17/20 07:03 97.9 F 82 15 104/67 99 Weight Admit Weight 179 lb 7 oz Weight 191 lb I&O: 02/16/20 02/17/20 02/18/20 06:59 06:59 06:59 Intake Total 480 1121 Output Total 625 875 Balance -145 246 Result Diagrams: 02/16/20 04:00 02/16/20 04:00 Additional Labs: Accuchecks 02/17/20 02/17/20 02/16/20 10:47 06:04 20:13 POC Glucose 105 H 105 H 156 H 02/16/20 02/16/20 02/14/20 17:45 14:05 15:24 POC Glucose 150 H 122 H 174 H Hospitalist ROS - Medication Medications: Active Medications Generic Name Dose Route Start Last Admin Trade Name Freq PRN Reason Stop Dose Admin Hydrocodone Bitart/Acetaminophen 1 tab 02/13/20 20:01 02/17/20 04:13 Hydrocodone/Acetaminophen 7.5/325 Mg Tablet PO 1 tab Q4H PRN Administration Moderate Pain (4-6) Hydrocodone Bitart/Acetaminophen 2 tab 02/13/20 20:01 02/17/20 09:17 Hydrocodone/Acetaminophen 7.5/325 Mg Tablet PO 2 tab Q4H PRN Administration Severe Pain (7-10) Aspirin 81 mg 02/14/20 09:00 02/17/20 09:18 Aspirin 81 Mg Enteric Coated Tablet PO 81 mg DAILY AUGUSTO Administration Atorvastatin Calcium 20 mg 02/14/20 21:00 02/16/20 19:50 Atorvastatin Calcium 20 Mg Tab PO 20 mg HS AUGUSTO Administration Carvedilol 3.125 mg 02/14/20 08:00 02/17/20 09:19 Carvedilol 3.125 Mg Tab PO 3.125 mg BID-WM AUGUSTO Administration Clopidogrel Bisulfate 75 mg 02/15/20 09:00 02/17/20 09:18 Clopidogrel Bisulfate 75 Mg Tab PO 75 mg DAILY AUGUSTO Administration Furosemide 40 mg 02/14/20 09:00 02/17/20 09:18 Furosemide 40 Mg Tab PO 40 mg DAILY AUGUSTO Administration Heparin Sodium (Porcine) 5,000 units 02/15/20 21:00 02/17/20 09:19 Heparin 5,000 Units/Ml Vial SC 5,000 units BID AUGUSTO Administration Metronidazole 500 mg/ Device 100 mls @ 100 mls/hr 02/13/20 22:00 02/17/20 05:32 IVPB 100 mls Q8HR AUGUSTO Administration Daptomycin 500 mg/ Sodium 100 mls @ 200 mls/hr 02/14/20 22:00 02/16/20 21:37 Chloride IVPB 100 mls Q24HR AUGUSTO Administration Ceftriaxone Sodium 2 gm/ 100 mls @ 200 mls/hr 02/14/20 21:00 02/16/20 19:50 Sodium Chloride IVPB 100 mls Q24HR AUGUSTO Administration Levothyroxine Sodium 75 mcg 02/15/20 06:00 02/17/20 05:31 Levothyroxine Sodium 75 Mcg Tab PO 75 mcg 0600 AUGUSTO Administration Losartan Potassium 50 mg 02/14/20 09:00 02/17/20 09:19 Losartan 25 Mg Tab PO 50 mg DAILY AUGUSTO Administration Pantoprazole Sodium 40 mg 02/15/20 09:00 02/17/20 09:19 Pantoprazole 40 Mg Tab PO 40 mg DAILY AUGUSTO Administration Potassium Chloride 10 meq 02/15/20 08:00 02/17/20 09:17 Potassium Chloride 10 Meq Tab PO 10 meq QAM-WM AUGUSTO Administration Tramadol HCl 50 mg 02/14/20 18:00 02/17/20 11:10 Tramadol Hcl 50 Mg Tab PO 50 mg Q6HR AUGUSTO Administration Hosp A/P (1) Osteomyelitis Code(s): M86.9 - OSTEOMYELITIS, UNSPECIFIED Status: Acute Qualifiers: Osteomyelitis location: other site (2) Congestive heart failure Code(s): I50.9 - HEART FAILURE, UNSPECIFIED Status: Acute Qualifiers: Heart failure chronicity: chronic (3) Decubitus ulcer, stage 4 with infection Code(s): L89.94 - PRESSURE ULCER OF UNSPECIFIED SITE, STAGE 4; L08.9 - LOCAL INFECTION OF THE SKIN AND SUBCUTANEOUS TISSUE, UNSP Status: Acute (4) Hypothyroidism Code(s): E03.9 - HYPOTHYROIDISM, UNSPECIFIED Status: Acute Qualifiers: Hypothyroidism type: unspecified Qualified Code(s): E03.9 - Hypothyroidism, unspecified - Plan Status post sharp margin debridement of the sacral decubitus wound. Continue IV antibiotics. Pending placement.
--- NOTE | 2020-02-17 15:37 | PDOC.BPN ---
- Brief Progress Note Encounter Date: 02/17/20 Encounter Time: 15:35 Seems to be doing well. No acute complaints. No events overnight. Afebrile, vital signs within normal limits Resting in bed, somewhat somnolent Wound VAC in place, with minimal sanguinous output Laboratory analysis reviewed and is grossly normal. White blood cell count 8.2. Hemoglobin stable 8.2 74-year-old female with stage IV sacral decubitus ulcer status post sharp debridement and application of negative pressure wound therapy device Management per hospitalist team Wound care consultation for VAC management Follow-up as needed Pending placement We will sign off, please call for any further questions.
[2020-02-17] MEDS: Atorvastatin Calcium 20 MG TAB PO SCH (21:38)
[2020-02-17] MEDS: cefTRIAXone\\ROCEPHIN 2 GM in Sodium Chloride 0.9% 100 ML IVPB SCH (21:42)
[2020-02-18] MEDS: HYDROcodone/Acetaminophen 7.5/325 mg Tablet PO PRN ×2 (00:46→08:25)
[2020-02-18] MEDS: traMADol HCl 50 MG TAB PO SCH ×4 (05:51→23:50)
[2020-02-18] MEDS: Levothyroxine Sodium 75 MCG TAB PO SCH (05:53)
[2020-02-18] MEDS: metroNIDAZOLE 500 MG in Premix Bag 1 BAG IVPB SCH ×3 (05:53→22:25)
[2020-02-18] MEDS: Furosemide 40 MG TAB PO SCH (08:12)
[2020-02-18] MEDS: Clopidogrel Bisulfate 75 MG TAB PO SCH (08:12)
[2020-02-18] MEDS: Aspirin 81 mg Enteric Coated Tablet PO SCH (08:12)
[2020-02-18] MEDS: Carvedilol 3.125 MG TAB PO SCH (08:12)
[2020-02-18] MEDS: Potassium Chloride 10 MEQ TAB PO SCH (08:12)
[2020-02-18] MEDS: Heparin 5,000 UNITS/ML VIAL SC SCH ×2 (08:12→21:44)
[2020-02-18] MEDS: Morphine 2 MG/ML VIAL SLOW IVP PRN (09:59)
[2020-02-18] MEDS: Losartan 25 MG TAB PO SCH (12:06)
[2020-02-18] MEDS ORDERED: Sodium Chloride 0.9% 500 ML IVPB SCH (12:45)
--- NOTE | 2020-02-18 15:56 | PDOC.HOSPP ---
- Subjective Encounter Date: 02/18/20 Encounter Time: 15:54 Subjective: Ms. Gabrielle Damon is a 74-year-old female who has been bedridden for very long time with a resultant sacral decubitus ulcer who was admitted to the hospital with increasing pain. She does have evidence of stage IV sacral decubitus ulcer. She required a sharp I&D done here by the general surgeon. She is getting wound care and a wound VAC is supposed to be placed. On examination today she is somnolent but arouses to command. Blood pressure has been pretty low as low as 68/41. Again she is asymptomatic. However she has been treated with IV antibiotic and I worry if she might be developing septicemia. I am going to start her on vasopressors. She is going to be transferred to ICU. - Objective Vital Signs & Weight: Vital Signs (12 hours) Temp Pulse Resp BP BP Pulse Ox 02/18/20 15:15 86/60 L 02/18/20 14:00 72/47 L 02/18/20 12:15 70/44 L 02/18/20 08:00 99 02/18/20 07:33 98.0 F 85 18 120/78 99 02/18/20 04:00 98.2 F 80 20 98/60 96 Weight Admit Weight 179 lb 7 oz Weight 195 lb I&O: 02/17/20 02/18/20 02/19/20 06:59 06:59 06:59 Intake Total 1121 60 Output Total 875 2700 Balance 246 -2640 Result Diagrams: 02/16/20 04:00 02/16/20 04:00 Additional Labs: Accuchecks 02/18/20 02/17/20 02/17/20 05:36 20:01 17:51 POC Glucose 81 123 H 116 H Radiology Reviewed by me: Yes EKG Reviewed by me: Yes Hospitalist ROS - Review of Systems Constitutional: reports: chills, weakness, malaise Neurological: reports: weakness, numbness, incoordination, confusion - Medication Medications: Active Medications Generic Name Dose Route Start Last Admin Trade Name Freq PRN Reason Stop Dose Admin Hydrocodone Bitart/Acetaminophen 1 tab 02/13/20 20:01 02/18/20 08:25 Hydrocodone/Acetaminophen 7.5/325 Mg Tablet PO 1 tab Q4H PRN Administration Moderate Pain (4-6) Hydrocodone Bitart/Acetaminophen 2 tab 02/13/20 20:01 02/17/20 09:17 Hydrocodone/Acetaminophen 7.5/325 Mg Tablet PO 2 tab Q4H PRN Administration Severe Pain (7-10) Aspirin 81 mg 02/14/20 09:00 02/18/20 08:12 Aspirin 81 Mg Enteric Coated Tablet PO 81 mg DAILY AUGUSTO Administration Atorvastatin Calcium 20 mg 02/14/20 21:00 02/17/20 21:38 Atorvastatin Calcium 20 Mg Tab PO 20 mg HS AUGUSTO Administration Carvedilol 3.125 mg 02/14/20 08:00 02/18/20 08:12 Carvedilol 3.125 Mg Tab PO 3.125 mg BID-WM AUGUSTO Administration Clopidogrel Bisulfate 75 mg 02/15/20 09:00 02/18/20 08:12 Clopidogrel Bisulfate 75 Mg Tab PO 75 mg DAILY AUGUSTO Administration Heparin Sodium (Porcine) 5,000 units 02/15/20 21:00 02/18/20 08:12 Heparin 5,000 Units/Ml Vial SC 5,000 units BID AUGUSTO Administration Metronidazole 500 mg/ Device 100 mls @ 100 mls/hr 02/13/20 22:00 02/18/20 15:11 IVPB 100 mls Q8HR AUGUSTO Administration Daptomycin 500 mg/ Sodium 100 mls @ 200 mls/hr 02/14/20 22:00 02/18/20 00:00 Chloride IVPB 100 mls Q24HR AUGUSTO Administration Ceftriaxone Sodium 2 gm/ 100 mls @ 200 mls/hr 02/14/20 21:00 02/17/20 21:42 Sodium Chloride IVPB 100 mls Q24HR AUGUSTO Administration Levothyroxine Sodium 75 mcg 02/15/20 06:00 02/18/20 05:53 Levothyroxine Sodium 75 Mcg Tab PO 75 mcg 0600 AUGUSTO Administration Morphine Sulfate 2 mg 02/13/20 20:32 02/18/20 09:59 Morphine 2 Mg/Ml Vial SLOW IVP 2 mg Q4H PRN Administration Pain Pantoprazole Sodium 40 mg 02/15/20 09:00 02/18/20 08:12 Pantoprazole 40 Mg Tab PO 40 mg DAILY AUGUSTO Administration Potassium Chloride 10 meq 02/15/20 08:00 02/18/20 08:12 Potassium Chloride 10 Meq Tab PO 10 meq QAM-WM AUGUSTO Administration Tramadol HCl 50 mg 02/14/20 18:00 02/18/20 13:45 Tramadol Hcl 50 Mg Tab PO Not Given Q6HR AUGUSTO - Exam General Appearance: NAD, awake alert, ill appearing Eye: PERRL ENT: dry oral mucosa Neck: supple, no JVD, no lymphadenopathy Heart: RRR, no murmur, normal peripheral pulses Respiratory: CTAB, no wheezes, no rales, no ronchi, normal chest expansion Gastrointestinal: soft, non-tender Neurological: no weakness Psychiatric: normal affect, somnolent Hosp A/P (1) Osteomyelitis Code(s): M86.9 - OSTEOMYELITIS, UNSPECIFIED Status: Acute Qualifiers: Osteomyelitis type: subacute Osteomyelitis location: other site Qualified Code(s): M86.28 - Subacute osteomyelitis, other site Plan: Involving the sacral region. She is status post extensive debridement. We appreciate general surgery. Continue antibiotics for now. We appreciate ID services as well. (2) Decubitus ulcer, stage 4 with infection Code(s): L89.94 - PRESSURE ULCER OF UNSPECIFIED SITE, STAGE 4; L08.9 - LOCAL INFECTION OF THE SKIN AND SUBCUTANEOUS TISSUE, UNSP Status: Acute Plan: Continue wound care. Antibiotics. (3) Shock circulatory Code(s): R57.9 - SHOCK, UNSPECIFIED Status: Acute Plan: Her blood pressure has remained low for the most part today. I suspect this may be septic. She is going to need Levophed. I will transfer her to CCU. 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
[2020-02-18] MEDS ORDERED: Norepinephrine 8 MG/0.9% NS 250 ML IVPB SCH (16:00)
[2020-02-18] MEDS: Sodium Chloride 0.9% 1,000 ML IV SCH (18:19)
--- NOTE | 2020-02-18 20:02 | PRG ---
DATE OF SERVICE: 02/18/2020 SUBJECTIVE: Ms. Damon has had surgical debridement by Dr. Valenzuela to stage IV decubitus ulcer. No coccyx was present. Everything probably the infection had eaten up, so all the necrotic tissue was removed. She is currently in the ICU because she became hypotensive. She is awake and does not appear in distress, although she states that her pain is 10/10 in the surgical site. The patient denies any headaches. No shortness of breath. No abdominal pain. She has a Howell catheter in place. OBJECTIVE: VITAL SIGNS: Temperature is normal, BP 99/66, heart rate 80, O2 saturations are 94% and she is actually on room air right now. GENERAL: Appears pale but in no acute distress. HEENT: Ocular movements are conjugate. LUNGS: Symmetric. Clear breath sounds. HEART: S1 and S2. Regular rate. No S3 or S4. ABDOMEN: Soft, not distended or tender. No ascites. No bladder distention. The wound photo was reviewed and there is this wide area of debridement and a fresh red tissue covering about 80% of the base. There is one edge of little darker tissue closer to the medial aspect. LABORATORY DATA: The white cell count is 8.2, hemoglobin 8.2, platelets 249 with 69% neutrophils. Sodium 134 and creatinine 0.69. We do not have any new microbiology information. We will wait for the samples if they were submitted from this latest surgical procedure. She is currently receiving daptomycin and Flagyl. I do not see any gram-negative coverage here. ASSESSMENT AND DISCUSSION: Coronary artery disease, ischemic cardiomyopathy, type 2 diabetes, peripheral vascular disease, second left toe osteomyelitis amputation, stage IV presacral decubitus ulcer with initial bedside debridement and now a more complete OR debridement. She will go back on Rocephin, daptomycin, and Flagyl until we get final results of cultures and probably this will be the definitive regimen and she will continue it for 6 weeks, the end date of therapy will be sometime around March 26. Job ID: [id number]
[2020-02-18] MEDS: Atorvastatin Calcium 20 MG TAB PO SCH (21:44)
[2020-02-18] MEDS: DAPTOmycin 500 MG in Sodium Chloride 0.9% 100 ML IVPB SCH ×2 (21:45)
[2020-02-19 04:05] LABS: #Eosinphils 0.2 thou/uL (0.0-0.7); #Lymphocytes 1.4 thou/uL (1.20-3.40); #Monocytes 0.6 thou/uL (0.11-0.59); #Neutrophils 5.5 thou/uL (1.40-6.50); %Basophils 0.2 % (0.0-1.0); %Eosinophils 2.4 % (0.0-10.0); %Lymphocytes 18.5 % (21.0-51.0); %Monocytes 7.5 % (0.0-10.0); %Neutrophils 71.3 % (42.0-75.0); Hemoglobin 8.3 g/dL (12.0-16.0); Mean Corpuscular Hemoglobin 30.1 pg (27.0-31.0); Mean Corpuscular Volume 88.5 fL (78.0-98.0); Mean Platelet Volume 7.1 fL (7.4-10.4); Platelet Count 229 thou/uL (130-400); RBC Distribution Width 16.4 % (11.5-14.5); Red Blood Cell (RBC) Count 2.76 mill/uL (4.20-5.40); White Blood Cell (WBC) Count 7.6 thou/uL (4.8-10.8)
[2020-02-19 04:29] LABS: Anion Gap 10 mmol/L (10-20); BUN (Urea Nitrogen) 6 mg/dL (9.8-20.1); Calc. Creatinine Clearance 106 mL/min (70-130); Calcium 8.4 mg/dL (7.8-10.44); Carbon Dioxide 30 mmol/L (23-31); Chloride 99 mmol/L (98-107); Estimated GFR-MDRD 89; Glucose 124 mg/dL (83-110); Sodium 135 mmol/L (136-145)
[2020-02-19] MEDS: metroNIDAZOLE 500 MG in Premix Bag 1 BAG IVPB SCH ×3 (05:58→21:25)
[2020-02-19] MEDS: traMADol HCl 50 MG TAB PO SCH ×4 (05:58→23:02)
[2020-02-19] MEDS: Levothyroxine Sodium 75 MCG TAB PO SCH (05:59)
[2020-02-19] MEDS: cefTRIAXone\\ROCEPHIN 2 GM in Sodium Chloride 0.9% 100 ML IVPB SCH (07:13)
[2020-02-19] MEDS: Potassium Chloride 10 MEQ TAB PO SCH (08:01)
[2020-02-19] MEDS: Morphine 2 MG/ML VIAL SLOW IVP PRN ×2 (08:01→12:27)
[2020-02-19] MEDS: Clopidogrel Bisulfate 75 MG TAB PO SCH (08:01)
[2020-02-19] MEDS: Aspirin 81 mg Enteric Coated Tablet PO SCH (08:01)
[2020-02-19] MEDS: Heparin 5,000 UNITS/ML VIAL SC SCH ×2 (08:01→21:15)
[2020-02-19] MEDS: Sodium Chloride 0.9% 1,000 ML IV SCH (12:52)
--- NOTE | 2020-02-19 13:42 | PDOC.HOSPP ---
- Subjective Encounter Date: 02/19/20 Encounter Time: 13:40 Subjective: Gabrielle Damon is a 74-year-old female who has for the most part been bedridden due to severe osteoarthritis presented to the hospital for infected sacral decubitus ulcers. In addition she did have osteomyelitis as well. She underwent extensive I&D since being hospitalized. ID services managing her antibiotics. She will likely be on couple weeks of antibiotics. I have asked management to help with LTAC placement. Hopefully once she is approved she can proceed to LTAC to complete her antibiotics. - Objective Vital Signs & Weight: Vital Signs (12 hours) Temp Pulse Ox 02/19/20 11:20 98.4 F 02/19/20 07:27 97 02/19/20 04:01 97.6 F Weight Admit Weight 179 lb 7 oz Weight 187 lb 8 oz Most Recent Monitor Data Heart Rate from ECG 95 NIBP 108/60 NIBP BP-Mean 76 Respiration from ECG 21 SpO2 98 I&O: 02/18/20 02/19/20 02/20/20 06:59 06:59 06:59 Intake Total 60 680 Output Total 2700 1200 Balance -2640 -520 Result Diagrams: 02/19/20 03:38 02/19/20 03:38 Additional Labs: Accuchecks 02/19/20 02/19/20 02/18/20 10:49 05:53 21:50 POC Glucose 129 H 110 H 97 02/18/20 16:34 POC Glucose 117 H Radiology Reviewed by me: Yes EKG Reviewed by me: Yes Hospitalist ROS - Review of Systems ROS unobtainable: due to mental status Constitutional: reports: fever, weakness Respiratory: reports: cough, dry Gastrointestinal: reports: nausea - Medication Medications: Active Medications Generic Name Dose Route Start Last Admin Trade Name Freq PRN Reason Stop Dose Admin Hydrocodone Bitart/Acetaminophen 1 tab 02/13/20 20:01 02/18/20 08:25 Hydrocodone/Acetaminophen 7.5/325 Mg Tablet PO 1 tab Q4H PRN Administration Moderate Pain (4-6) Hydrocodone Bitart/Acetaminophen 2 tab 02/13/20 20:01 02/17/20 09:17 Hydrocodone/Acetaminophen 7.5/325 Mg Tablet PO 2 tab Q4H PRN Administration Severe Pain (7-10) Aspirin 81 mg 02/14/20 09:00 02/19/20 08:01 Aspirin 81 Mg Enteric Coated Tablet PO 81 mg DAILY AUG[place]O Administration Atorvastatin Calcium 20 mg 02/14/20 21:00 02/18/20 21:44 Atorvastatin Calcium 20 Mg Tab PO 20 mg HS AUG[place]O Administration Clopidogrel Bisulfate 75 mg 02/15/20 09:00 02/19/20 08:01 Clopidogrel Bisulfate 75 Mg Tab PO 75 mg DAILY [place]O Administration Heparin Sodium (Porcine) 5,000 units 02/15/20 21:00 02/19/20 08:01 Heparin 5,000 Units/Ml Vial SC 5,000 units BID A[place]O Administration Metronidazole 500 mg/ Device 100 mls @ 100 mls/hr 02/13/20 22:00 02/19/20 12:31 IVPB 100 mls Q8HR [place]O Administration Daptomycin 500 mg/ Sodium 100 mls @ 200 mls/hr 02/14/20 22:00 02/18/20 21:45 Chloride IVPB 100 mls Q24HR [place]O Administration Sodium Chloride 1,000 mls @ 50 mls/hr 02/18/20 16:00 02/19/20 12:52 Normal Saline 0.9% IV Not Given .Q20H [place]O Ceftriaxone Sodium 2 gm/ 100 mls @ 200 mls/hr 02/19/20 06:30 02/19/20 07:13 Sodium Chloride IVPB 100 mls Q24HR [place]O Administration Levothyroxine Sodium 75 mcg 02/15/20 06:00 02/19/20 05:59 Levothyroxine Sodium 75 Mcg Tab PO 75 mcg 0600 [place]O Administration Morphine Sulfate 2 mg 02/13/20 20:32 02/19/20 12:27 Morphine 2 Mg/Ml Vial SLOW IVP 2 mg Q4H PRN Administration Pain Pantoprazole Sodium 40 mg 02/15/20 09:00 02/19/20 08:01 Pantoprazole 40 Mg Tab PO 40 mg DAILY A[place]O Administration Potassium Chloride 10 meq 02/15/20 08:00 02/19/20 08:01 Potassium Chloride 10 Meq Tab PO 10 meq QAM-WM A[facility]O Administration Tramadol HCl 50 mg 02/14/20 18:00 02/19/20 12:29 Tramadol Hcl 50 Mg Tab PO 50 mg Q6HR [place]O Administration - Exam General Appearance: awake alert, ill appearing Eye: PERRL ENT: normocephalic atraumatic, moist mucosa Neck: supple, symmetric, no JVD, no lymphadenopathy Heart: RRR, no murmur, no gallops Respiratory: CTAB, no wheezes, no rales, no ronchi, normal chest expansion Gastrointestinal: soft, non-tender, non-distended, normal bowel sounds Skin: normal turgor Neurological: cranial nerve grossly intact, normal sensation to touch, no weakness, no focal deficits, no new deficit Musculoskeletal: normal tone, normal strength, no muscle wasting Psychiatric: normal affect, normal behavior, A&O x 3 Hosp A/P (1) Osteomyelitis Code(s): M86.9 - OSTEOMYELITIS, UNSPECIFIED Status: Acute Qualifiers: Osteomyelitis type: subacute Osteomyelitis location: other site Qualified Code(s): M86.28 - Subacute osteomyelitis, other site (2) Decubitus ulcer, stage 4 with infection Code(s): L89.94 - PRESSURE ULCER OF UNSPECIFIED SITE, STAGE 4; L08.9 - LOCAL INFECTION OF THE SKIN AND SUBCUTANEOUS TISSUE, UNSP Status: Acute Plan: Status post debridement. (3) Shock circulatory Code(s): R57.9 - SHOCK, UNSPECIFIED Status: Resolved Plan: This resolved. 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 Stage IV sacral decubitus. She is status post extensive debridement. Continue antibiotics and wound care. 2. Osteomyelitis. Continue treatment as above. She will be a candidate for LTAC placement. She needs to complete couple weeks of IV antibiotics.
[2020-02-19] MEDS: Atorvastatin Calcium 20 MG TAB PO SCH (21:25)
[2020-02-19] MEDS: DAPTOmycin 500 MG in Sodium Chloride 0.9% 100 ML IVPB SCH (22:45)
[2020-02-20] MEDS: Sodium Chloride 0.9% 1,000 ML IV SCH ×2 (02:44→21:05)
[2020-02-20 04:42] LABS: #Eosinphils 0.2 thou/uL (0.0-0.7); #Lymphocytes 1.4 thou/uL (1.20-3.40); #Monocytes 0.6 thou/uL (0.11-0.59); #Neutrophils 4.8 thou/uL (1.40-6.50); %Basophils 0.6 % (0.0-1.0); %Eosinophils 2.2 % (0.0-10.0); %Lymphocytes 20.4 % (21.0-51.0); %Monocytes 8.8 % (0.0-10.0); %Neutrophils 68.1 % (42.0-75.0); Hemoglobin 8.4 g/dL (12.0-16.0); Mean Corpuscular HGB CONC 34.1 g/dL (32.0-36.0); Mean Corpuscular Volume 87.9 fL (78.0-98.0); Mean Platelet Volume 7.3 fL (7.4-10.4); Platelet Count 241 thou/uL (130-400); RBC Distribution Width 16.8 % (11.5-14.5); Red Blood Cell (RBC) Count 2.79 mill/uL (4.20-5.40)
[2020-02-20 05:06] LABS: Anion Gap 12 mmol/L (10-20); BUN (Urea Nitrogen) 5 mg/dL (9.8-20.1); Calc. Creatinine Clearance 118 mL/min (70-130); Calcium 8.6 mg/dL (7.8-10.44); Carbon Dioxide 27 mmol/L (23-31); Chloride 101 mmol/L (98-107); Estimated GFR-MDRD Greater than 90; Glucose 96 mg/dL (83-110); Sodium 136 mmol/L (136-145)
[2020-02-20] MEDS: traMADol HCl 50 MG TAB PO SCH ×3 (05:37→19:17)
[2020-02-20] MEDS: metroNIDAZOLE 500 MG in Premix Bag 1 BAG IVPB SCH ×3 (05:40→21:01)
[2020-02-20] MEDS: Levothyroxine Sodium 75 MCG TAB PO SCH (05:40)
[2020-02-20] MEDS: cefTRIAXone\\ROCEPHIN 2 GM in Sodium Chloride 0.9% 100 ML IVPB SCH (06:51)
[2020-02-20] MEDS: Heparin 5,000 UNITS/ML VIAL SC SCH ×2 (08:51→21:01)
[2020-02-20] MEDS: Aspirin 81 mg Enteric Coated Tablet PO SCH (08:51)
[2020-02-20] MEDS: Clopidogrel Bisulfate 75 MG TAB PO SCH (08:51)
[2020-02-20] MEDS: Potassium Chloride 10 MEQ TAB PO SCH (08:51)
[2020-02-20] MEDS: HYDROcodone/Acetaminophen 7.5/325 mg Tablet PO PRN ×2 (08:54→15:39)
--- NOTE | 2020-02-20 10:31 | PDOC.HOSPP ---
- Subjective Encounter Date: 02/20/20 Encounter Time: 07:00 Subjective: Patient seen and examined bedside today, patient has no new complaint, patient is pending placement to LTAC, - Objective Vital Signs & Weight: Vital Signs (12 hours) Temp Pulse Resp BP Pulse Ox 02/20/20 08:26 98.7 F 95 18 113/77 96 02/20/20 03:34 98.6 F 90 16 98/54 L 98 02/19/20 23:49 98.5 F 86 16 104/55 L 98 Weight Admit Weight 179 lb 7 oz Weight 187 lb 8 oz Most Recent Monitor Data Heart Rate from ECG 100 NIBP 114/67 NIBP BP-Mean 82 Respiration from ECG 18 SpO2 98 I&O: 02/19/20 02/20/20 02/21/20 06:59 06:59 06:59 Intake Total 680 1420 Output Total 1200 1125 Balance -520 295 Result Diagrams: 02/20/20 03:36 02/20/20 03:36 Additional Labs: Accuchecks 02/19/20 02/19/20 17:09 10:49 POC Glucose 99 129 H Hospitalist ROS - Review of Systems Constitutional: denies: fever, chills, sweats, weakness, malaise, other Respiratory: denies: cough, dry, shortness of breath, hemoptysis, SOB with excertion, pleuritic pain, sputum, wheezing, other Cardiovascular: denies: chest pain, palpitations, orthopnea, paroxysmal noc. dyspnea, edema, light headedness, other Gastrointestinal: denies: nausea, vomiting, abdominal pain, diarrhea, constipation, melena, hematochezia, other Genitourinary: denies: dysuria, frequency, incontinence, hematuria, retention, other Musculoskeletal: denies: neck pain, shoulder pain, arm pain, back pain, hand pain, leg pain, foot pain, other - Medication Medications: Active Medications Generic Name Dose Route Start Last Admin Trade Name Freq PRN Reason Stop Dose Admin Hydrocodone Bitart/Acetaminophen 1 tab 02/13/20 20:01 02/18/20 08:25 Hydrocodone/Acetaminophen 7.5/325 Mg Tablet PO 1 tab Q4H PRN Administration Moderate Pain (4-6) Hydrocodone Bitart/Acetaminophen 2 tab 02/13/20 20:01 02/20/20 08:54 Hydrocodone/Acetaminophen 7.5/325 Mg Tablet PO 2 tab Q4H PRN Administration Severe Pain (7-10) Aspirin 81 mg 02/14/20 09:00 02/20/20 08:51 Aspirin 81 Mg Enteric Coated Tablet PO 81 mg DAILY A[place]O Administration Atorvastatin Calcium 20 mg 02/14/20 21:00 02/19/20 21:25 Atorvastatin Calcium 20 Mg Tab PO 20 mg HS [place]O Administration Clopidogrel Bisulfate 75 mg 02/15/20 09:00 02/20/20 08:51 Clopidogrel Bisulfate 75 Mg Tab PO 75 mg DAILY [place]O Administration Heparin Sodium (Porcine) 5,000 units 02/15/20 21:00 02/20/20 08:51 Heparin 5,000 Units/Ml Vial SC 5,000 units BID [place]O Administration Metronidazole 500 mg/ Device 100 mls @ 100 mls/hr 02/13/20 22:00 02/20/20 05:40 IVPB 100 mls Q8HR [place] Administration Daptomycin 500 mg/ Sodium 100 mls @ 200 mls/hr 02/14/20 22:00 02/19/20 22:45 Chloride IVPB 100 mls Q24HR [place] Administration Sodium Chloride 1,000 mls @ 50 mls/hr 02/18/20 16:00 02/20/20 02:44 Normal Saline 0.9% IV 1,000 mls .Q20H [place] Administration Ceftriaxone Sodium 2 gm/ 100 mls @ 200 mls/hr 02/19/20 06:30 02/20/20 06:51 Sodium Chloride IVPB 100 mls Q24HR [place] Administration Levothyroxine Sodium 75 mcg 02/15/20 06:00 02/20/20 05:40 Levothyroxine Sodium 75 Mcg Tab PO 75 mcg 0600 [place]O Administration Morphine Sulfate 2 mg 02/13/20 20:32 02/19/20 12:27 Morphine 2 Mg/Ml Vial SLOW IVP 2 mg Q4H PRN Administration Pain Pantoprazole Sodium 40 mg 02/15/20 09:00 02/20/20 08:51 Pantoprazole 40 Mg Tab PO 40 mg DAILY [place]O Administration Potassium Chloride 10 meq 02/15/20 08:00 02/20/20 08:51 Potassium Chloride 10 Meq Tab PO 10 meq QAM-WM [place] Administration Tramadol HCl 50 mg 02/14/20 18:00 02/20/20 05:37 Tramadol Hcl 50 Mg Tab PO 50 mg Q6HR [place]O Administration - Exam General Appearance: NAD, awake alert Eye: PERRL, anicteric sclera ENT: normocephalic atraumatic, no oropharyngeal lesions Neck: supple, symmetric, no JVD, no thyromegaly Heart: RRR, no murmur, no gallops, no rubs Respiratory: no wheezes, no rales, no ronchi Gastrointestinal: soft, non-tender, non-distended, normal bowel sounds, no palpable masses Gastrointestinal - other findings: Obesity noted Extremities: no clubbing, no edema Skin: normal turgor, no lesions Neurological: no new deficit Musculoskeletal: normal tone, normal strength Psychiatric: normal affect, normal behavior, A&O x 3 Hosp A/P (1) Decubitus ulcer, stage 4 with infection Code(s): L89.94 - PRESSURE ULCER OF UNSPECIFIED SITE, STAGE 4; L08.9 - LOCAL INFECTION OF THE SKIN AND SUBCUTANEOUS TISSUE, UNSP Status: Acute (2) UTI (urinary tract infection) Status: Acute Qualifiers: Urinary tract infection type: acute cystitis (3) Osteomyelitis Code(s): M86.9 - OSTEOMYELITIS, UNSPECIFIED Status: Acute Qualifiers: Osteomyelitis type: subacute Osteomyelitis location: other site Qualified Code(s): M86.28 - Subacute osteomyelitis, other site Plan: Sacral decubitus ulcer (4) Congestive heart failure Code(s): I50.9 - HEART FAILURE, UNSPECIFIED Status: Chronic Qualifiers: Heart failure type: systolic Heart failure chronicity: chronic Qualified Code(s): I50.22 - Chronic systolic (congestive) heart failure (5) Degenerative joint disease Code(s): M19.90 - UNSPECIFIED OSTEOARTHRITIS, UNSPECIFIED SITE Status: Chronic Qualifiers: Spinal region: unspecified (6) Hypothyroidism Code(s): E03.9 - HYPOTHYROIDISM, UNSPECIFIED Status: Chronic Qualifiers: Hypothyroidism type: unspecified Qualified Code(s): E03.9 - Hypothyroidism, unspecified - Plan old records reviewed/req, plan discussed w/ family, thibodeaux catheter, continue antibiotics, 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 Gar Continue aggressive wound care as per wound care team Patient is awaiting placement to LTAC I will add Diflucan 100 mg p.o. daily for yeast in the urine culture I have reviewed her current medication and continue provide symptomatic and supportive care In view of her neck systolic heart failure with ischemic cardiomyopathy, patient is not on any beta-addison or OBINNA inhibitor or ARB because of hypotension and patient is not tolerating this medication at this point. Plan of care discussed with the patient's daughter on phone
[2020-02-20] MEDS: Activase 2 MG VIAL CATH SCH ×2 (12:46→14:20)
[2020-02-20] MEDS: DAPTOmycin 500 MG in Sodium Chloride 0.9% 100 ML IVPB SCH (20:59)
[2020-02-20] MEDS: Atorvastatin Calcium 20 MG TAB PO SCH (21:01)
[2020-02-21] MEDS: traMADol HCl 50 MG TAB PO SCH ×4 (00:54→18:09)
[2020-02-21] MEDS: HYDROcodone/Acetaminophen 7.5/325 mg Tablet PO PRN ×2 (04:05→16:10)
[2020-02-21] MEDS: cefTRIAXone\\ROCEPHIN 2 GM in Sodium Chloride 0.9% 100 ML IVPB SCH (04:47)
[2020-02-21] MEDS: Levothyroxine Sodium 75 MCG TAB PO SCH (04:49)
[2020-02-21] MEDS: metroNIDAZOLE 500 MG in Premix Bag 1 BAG IVPB SCH ×3 (05:29→21:14)
[2020-02-21] MEDS: Clopidogrel Bisulfate 75 MG TAB PO SCH (08:53)
[2020-02-21] MEDS: Potassium Chloride 10 MEQ TAB PO SCH (08:54)
[2020-02-21] MEDS: Fluconazole 100 MG TAB PO SCH (08:54)
[2020-02-21] MEDS: Heparin 5,000 UNITS/ML VIAL SC SCH ×2 (08:54→21:05)
[2020-02-21] MEDS: Aspirin 81 mg Enteric Coated Tablet PO SCH (08:54)
--- NOTE | 2020-02-21 09:19 | PDOC.HOSPP ---
- Subjective Encounter Date: 02/21/20 Encounter Time: 07:00 Subjective: Patient seen and examined bedside today, she does not have any new complaint, she is waiting for LTAC bed availability - Objective Vital Signs & Weight: Vital Signs (12 hours) Temp Pulse Resp BP Pulse Ox 02/21/20 07:49 98.4 F 92 18 115/56 L 98 Weight Admit Weight 179 lb 7 oz Weight 187 lb 8 oz Most Recent Monitor Data Heart Rate from ECG 100 NIBP 114/67 NIBP BP-Mean 82 Respiration from ECG 18 SpO2 98 I&O: 02/20/20 02/21/20 02/22/20 06:59 06:59 06:59 Intake Total 1420 1900 Output Total 1125 600 Balance 295 1300 Result Diagrams: 02/20/20 03:36 02/20/20 03:36 Additional Labs: Accuchecks 02/21/20 02/20/20 02/20/20 05:09 21:13 16:16 POC Glucose 128 H 102 H 121 H 02/20/20 11:13 POC Glucose 147 H Hospitalist ROS - Review of Systems ENT: denies: ear pain, ear discharge, nose pain, nose discharge, nose congestion, mouth pain, mouth swelling, throat pain, throat swelling, other Respiratory: denies: cough, dry, shortness of breath, hemoptysis, SOB with excertion, pleuritic pain, sputum, wheezing, other Cardiovascular: denies: chest pain, palpitations, orthopnea, paroxysmal noc. dyspnea, edema, light headedness, other Gastrointestinal: denies: nausea, vomiting, abdominal pain, diarrhea, con stipation, melena, hematochezia, other Genitourinary: denies: dysuria, frequency, incontinence, hematuria, retention, other Musculoskeletal: denies: neck pain, shoulder pain, arm pain, back pain, hand pain, leg pain, foot pain, other - Medication Medications: Active Medications Generic Name Dose Route Start Last Admin Trade Name Freq PRN Reason Stop Dose Admin Hydrocodone Bitart/Acetaminophen 1 tab 02/13/20 20:01 02/21/20 04:05 Hydrocodone/Acetaminophen 7.5/325 Mg Tablet PO 1 tab Q4H PRN Administration Moderate Pain (4-6) Hydrocodone Bitart/Acetaminophen 2 tab 02/13/20 20:01 11/07/20 08:54 Hydrocodone/Acetaminophen 7.5/325 Mg Tablet PO 2 tab Q4H PRN Administration Severe Pain (7-10) Alteplase, Recombinant 2 mg 02/20/20 12:15 02/20/20 14:20 Activase 2 Mg Vial CATH 2 mg ASDIR A[place]O Administration Aspirin 81 mg 02/14/20 09:00 02/21/20 08:54 Aspirin 81 Mg Enteric Coated Tablet PO 81 mg DAILY [place]O Administration Atorvastatin Calcium 20 mg 02/14/20 21:00 02/20/20 21:01 Atorvastatin Calcium 20 Mg Tab PO Not Given HS A[place]O Clopidogrel Bisulfate 75 mg 02/15/20 09:00 02/21/20 08:53 Clopidogrel Bisulfate 75 Mg Tab PO 75 mg DAILY [place] Administration Fluconazole 100 mg 02/21/20 09:00 02/21/20 08:54 Fluconazole 100 Mg Tab PO 100 mg DAILY [place] Administration Heparin Sodium (Porcine) 5,000 units 02/20/20 21:00 02/21/20 08:54 Heparin 5,000 Units/Ml Vial SC 5,000 units Q12HR [place] Administration Metronidazole 500 mg/ Device 100 mls @ 100 mls/hr 02/13/20 22:00 02/21/20 05:29 IVPB 100 mls Q8HR [place] Administration Daptomycin 500 mg/ Sodium 100 mls @ 200 mls/hr 02/14/20 22:00 02/20/20 20:59 Chloride IVPB 100 mls Q24HR [place] Administration Sodium Chloride 1,000 mls @ 50 mls/hr 02/18/20 16:00 02/20/20 21:05 Normal Saline 0.9% IV 1,000 mls .Q20H [place] Administration Ceftriaxone Sodium 2 gm/ 100 mls @ 200 mls/hr 02/19/20 06:30 02/21/20 04:47 Sodium Chloride IVPB 100 mls Q24HR [place] Administration Levothyroxine Sodium 75 mcg 02/15/20 06:00 02/21/20 04:49 Levothyroxine Sodium 75 Mcg Tab PO 75 mcg 0600 [place] Administration Morphine Sulfate 2 mg 02/13/20 20:32 02/19/20 12:27 Morphine 2 Mg/Ml Vial SLOW IVP 2 mg Q4H PRN Administration Pain Pantoprazole Sodium 40 mg 02/15/20 09:00 02/21/20 08:54 Pantoprazole 40 Mg Tab PO 40 mg DAILY [place] Administration Potassium Chloride 10 meq 02/15/20 08:00 02/21/20 08:54 Potassium Chloride 10 Meq Tab PO 10 meq QAM-WM [place] Administration Tramadol HCl 50 mg 02/14/20 18:00 02/21/20 05:28 Tramadol Hcl 50 Mg Tab PO 50 mg Q6HR [place] Administration - Exam General Appearance: NAD, awake alert Eye: PERRL, anicteric sclera ENT: normocephalic atraumatic, no oropharyngeal lesions Neck: symmetric, no JVD Heart: RRR, no murmur, no gallops, no rubs Respiratory: no wheezes, no rales, no ronchi Gastrointestinal: soft, non-tender, non-distended, normal bowel sounds Gastrointestinal - other findings: Obesity noted Extremities - other findings: Left foot osteomyelitis site covered with a dressing Skin: normal turgor Skin - other findings: Multiple skin lesion noted Neurological: no new deficit Musculoskeletal: normal tone, normal strength, generalized weakness Psychiatric: normal affect, normal behavior, A&O x 3 Hosp A/P (1) Decubitus ulcer, stage 4 with infection Code(s): L89.94 - PRESSURE ULCER OF UNSPECIFIED SITE, STAGE 4; L08.9 - LOCAL INFECTION OF THE SKIN AND SUBCUTANEOUS TISSUE, UNSP Status: Acute (2) UTI (urinary tract infection) Status: Acute Qualifiers: Urinary tract infection type: acute cystitis (3) Osteomyelitis Code(s): M86.9 - OSTEOMYELITIS, UNSPECIFIED Status: Acute Qualifiers: Osteomyelitis type: subacute Osteomyelitis location: other site Qualified Code(s): M86.28 - Subacute osteomyelitis, other site (4) Congestive heart failure Code(s): I50.9 - HEART FAILURE, UNSPECIFIED Status: Chronic Qualifiers: Heart failure type: systolic Heart failure chronicity: chronic Qualified Code(s): I50.22 - Chronic systolic (congestive) heart failure (5) Degenerative joint disease Code(s): M19.90 - UNSPECIFIED OSTEOARTHRITIS, UNSPECIFIED SITE Status: Chronic Qualifiers: Spinal region: unspecified (6) Hypothyroidism Code(s): E03.9 - HYPOTHYROIDISM, UNSPECIFIED Status: Chronic Qualifiers: Hypothyroidism type: unspecified Qualified Code(s): E03.9 - Hypothyroidism, unspecified - Plan old records reviewed/req, continue antibiotics, 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 Gar Continue aggressive wound care Overall medically stable, medication reviewed Add ferrous sulfate and multivitamin We will consider discharge anytime when LTAC bed available
[2020-02-21] MEDS ORDERED: Ferrous Sulfate 325 MG TAB PO SCH (09:30)
[2020-02-21] MEDS ORDERED: Multivitamin W/ Minerals 1 TAB PO SCH (09:30)
[2020-02-21 12:42] VITALS: BMI 31.1
[2020-02-21] MEDS: Morphine 2 MG/ML VIAL SLOW IVP PRN (15:41)
[2020-02-21] MEDS: Sodium Chloride 0.9% 1,000 ML IV SCH (21:16)
[2020-02-21] MEDS: Atorvastatin Calcium 20 MG TAB PO SCH (21:17)
[2020-02-21] MEDS: DAPTOmycin 500 MG in Sodium Chloride 0.9% 100 ML IVPB SCH (22:45)
[2020-02-22] MEDS: traMADol HCl 50 MG TAB PO SCH ×3 (00:29→11:31)
[2020-02-22] MEDS: Morphine 2 MG/ML VIAL SLOW IVP PRN ×2 (01:24→10:49)
[2020-02-22] MEDS: Levothyroxine Sodium 75 MCG TAB PO SCH (05:02)
[2020-02-22] MEDS: metroNIDAZOLE 500 MG in Premix Bag 1 BAG IVPB SCH (05:02)
[2020-02-22] MEDS: cefTRIAXone\\ROCEPHIN 2 GM in Sodium Chloride 0.9% 100 ML IVPB SCH (06:33)
[2020-02-22] MEDS ORDERED: Ferrous Sulfate 325 MG TAB PO SCH (08:00)
[2020-02-22 08:06] VITALS: BP 119/70; TEMP 97.9
[2020-02-22] MEDS: Aspirin 81 mg Enteric Coated Tablet PO SCH (08:19)
[2020-02-22] MEDS: Potassium Chloride 10 MEQ TAB PO SCH (08:19)
[2020-02-22] MEDS: Fluconazole 100 MG TAB PO SCH (08:20)
[2020-02-22] MEDS: Clopidogrel Bisulfate 75 MG TAB PO SCH (08:20)
[2020-02-22] MEDS: Heparin 5,000 UNITS/ML VIAL SC SCH (08:20)
[2020-02-22] MEDS: HYDROcodone/Acetaminophen 7.5/325 mg Tablet PO PRN ×2 (08:31→12:33)
[2020-02-22] MEDS ORDERED: Multivitamin W/ Minerals 1 TAB PO SCH (09:00)
--- NOTE | 2020-02-22 09:48 | PDOC.HOSPP ---
- Subjective Encounter Date: 02/22/20 Encounter Time: 07:00 Subjective: Patient seen and examined bedside today, no overnight event, no new complaint, - Objective Vital Signs & Weight: Vital Signs (12 hours) Temp Pulse Resp BP Pulse Ox 02/22/20 08:05 97.9 F 99 18 119/70 100 02/22/20 08:00 100 Weight Admit Weight 179 lb 7 oz Weight 187 lb 8 oz Most Recent Monitor Data Heart Rate from ECG 100 NIBP 114/67 NIBP BP-Mean 82 Respiration from ECG 18 SpO2 98 I&O: 02/21/20 02/22/20 02/23/20 06:59 06:59 06:59 Intake Total 1900 740 Output Total 600 975 Balance 1300 -235 Result Diagrams: 02/20/20 03:36 02/20/20 03:36 Additional Labs: Accuchecks 02/22/20 02/21/20 02/21/20 05:38 20:18 16:01 POC Glucose 91 118 H 94 02/21/20 02/18/20 12:09 11:48 POC Glucose 126 H 90 Hospitalist ROS - Review of Systems Respiratory: denies: cough, dry, shortness of breath, hemoptysis, SOB with excertion, pleuritic pain, sputum, wheezing, other Cardiovascular: denies: chest pain, palpitations, orthopnea, paroxysmal noc. dyspnea, edema, light headedness, other Gastrointestinal: denies: nausea, vomiting, abdominal pain, diarrhea, constipation, melena, hematochezia, other Genitourinary: denies: dysuria, frequency, incontinence, hematuria, retention, other Musculoskeletal: denies: neck pain, shoulder pain, arm pain, back pain, hand pain, leg pain, foot pain, other - Medication Medications: Active Medications Generic Name Dose Route Start Last Admin Trade Name Freq PRN Reason Stop Dose Admin Hydrocodone Bitart/Acetaminophen 1 tab 02/13/20 20:01 02/21/20 04:05 Hydrocodone/Acetaminophen 7.5/325 Mg Tablet PO 1 tab Q4H PRN Administration Moderate Pain (4-6) Hydrocodone Bitart/Acetaminophen 2 tab 02/13/20 20:01 02/22/20 08:31 Hydrocodone/Acetaminophen 7.5/325 Mg Tablet PO 2 tab Q4H PRN Administration Severe Pain (7-10) Alteplase, Recombinant 2 mg 02/20/20 12:15 02/20/20 14:20 Activase 2 Mg Vial CATH 2 mg ASDIR AUGUSTO Administration Aspirin 81 mg 02/14/20 09:00 02/22/20 08:19 Aspirin 81 Mg Enteric Coated Tablet PO 81 mg DAILY AUGUSTO Administration Atorvastatin Calcium 20 mg 02/14/20 21:00 02/21/20 21:17 Atorvastatin Calcium 20 Mg Tab PO Not Given HS AUGUSTO Clopidogrel Bisulfate 75 mg 02/15/20 09:00 02/22/20 08:20 Clopidogrel Bisulfate 75 Mg Tab PO 75 mg DAILY AUGUSTO Administration Ferrous Sulfate 325 mg 02/22/20 08:00 02/22/20 08:19 Ferrous Sulfate 325 Mg Tab PO 325 mg QAM-WM AUGUSTO Administration Fluconazole 100 mg 02/21/20 09:00 02/22/20 08:20 Fluconazole 100 Mg Tab PO 100 mg DAILY AUGUSTO Administration Heparin Sodium (Porcine) 5,000 units 02/20/20 21:00 02/22/20 08:20 Heparin 5,000 Units/Ml Vial SC 5,000 units Q12HR AUGUSTO Administration Metronidazole 500 mg/ Device 100 mls @ 100 mls/hr 02/13/20 22:00 02/22/20 05:02 IVPB 100 mls Q8HR AUGUSTO Administration Daptomycin 500 mg/ Sodium 100 mls @ 200 mls/hr 02/14/20 22:00 02/21/20 22:45 Chloride IVPB 100 mls Q24HR AUGUSTO Administration Sodium Chloride 1,000 mls @ 50 mls/hr 02/18/20 16:00 02/21/20 21:16 Normal Saline 0.9% IV 1,000 mls .Q20H AUUGSTO Administration Ceftriaxone Sodium 2 gm/ 100 mls @ 200 mls/hr 02/19/20 06:30 02/22/20 06:33 Sodium Chloride IVPB 100 mls Q24HR AUGUSTO Administration Iron/Minerals/Multivitamins 1 tab 02/22/20 09:00 02/22/20 08:20 Multivitamin W/ Minerals 1 Tab PO 1 tab DAILY AUGUSTO Administration Levothyroxine Sodium 75 mcg 02/15/20 06:00 02/22/20 05:02 Levothyroxine Sodium 75 Mcg Tab PO 75 mcg 0600 AUGUSTO Administration Morphine Sulfate 2 mg 02/13/20 20:32 02/22/20 01:24 Morphine 2 Mg/Ml Vial SLOW IVP 2 mg Q4H PRN Administration Pain Pantoprazole Sodium 40 mg 02/15/20 09:00 02/22/20 08:20 Pantoprazole 40 Mg Tab PO 40 mg DAILY AUGUSTO Administration Potassium Chloride 10 meq 02/15/20 08:00 02/22/20 08:19 Potassium Chloride 10 Meq Tab PO 10 meq QAM-WM AUGUSTO Administration Tramadol HCl 50 mg 02/14/20 18:00 02/22/20 05:02 Tramadol Hcl 50 Mg Tab PO 50 mg Q6HR AUGUSTO Administration - Exam General Appearance: NAD, awake alert Eye: PERRL, anicteric sclera ENT: normocephalic atraumatic, no oropharyngeal lesions Neck: supple, symmetric, no JVD, no thyromegaly Heart: RRR, no murmur, no gallops, no rubs Respiratory: CTAB, no wheezes, no rales, no ronchi Gastrointestinal: soft, non-tender, non-distended, normal bowel sounds Extremities: no edema Extremities - other findings: Left foot wound covered with a dressing Neurological: no new deficit Musculoskeletal: normal tone, normal strength Psychiatric: normal affect, normal behavior Hosp A/P (1) Decubitus ulcer, stage 4 with infection Code(s): L89.94 - PRESSURE ULCER OF UNSPECIFIED SITE, STAGE 4; L08.9 - LOCAL INFECTION OF THE SKIN AND SUBCUTANEOUS TISSUE, UNSP Status: Acute (2) UTI (urinary tract infection) Status: Acute Qualifiers: Urinary tract infection type: acute cystitis (3) Osteomyelitis Code(s): M86.9 - OSTEOMYELITIS, UNSPECIFIED Status: Acute Qualifiers: Osteomyelitis type: subacute Osteomyelitis location: other site Qualified Code(s): M86.28 - Subacute osteomyelitis, other site (4) Congestive heart failure Code(s): I50.9 - HEART FAILURE, UNSPECIFIED Status: Chronic Qualifiers: Heart failure type: systolic Heart failure chronicity: chronic Qualified Code(s): I50.22 - Chronic systolic (congestive) heart failure (5) Degenerative joint disease Code(s): M19.90 - UNSPECIFIED OSTEOARTHRITIS, UNSPECIFIED SITE Status: Chronic Qualifiers: Spinal region: unspecified (6) Hypothyroidism Code(s): E03.9 - HYPOTHYROIDISM, UNSPECIFIED Status: Chronic Qualifiers: Hypothyroidism type: unspecified Qualified Code(s): E03.9 - Hypothyroidism, unspecified - Plan old records reviewed/req, thibodeaux catheter, continue antibiotics, PT/OT, older adult social work specialist 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 Gar till March 26, 2020 Continue aggressive wound care Overall medically stable, medication reviewed Add ferrous sulfate and multivitamin We will consider discharge anytime when LTAC bed available Discussed with the special education case manager
--- NOTE | 2020-02-22 11:30 | PDOC.DS.DS ---
Provider - Provider Date of Admission: 02/13/20 19:55 Date of Discharge: 02/22/20 Admitting Provider: Conner Valdez Consultations: General Surgery, Infectious Disease Primary Care Physician: Noemy Gerber NP Course - Hospital Course Hospital Course: 74-year-old female who has multiple medical issue, she has infected sacral ulcer stage IV, patient was sent from [facility] for increasing sacral pain. This patient has underlying osteomyelitis and patient was on Rocephin, daptomycin and Flagyl, this antibiotic therapy was continued while in hospital. Patient was recommended debridement last admission but she refused and her wound was getting worse and that is why patient agreed to go for debridement this time. This patient was evaluated for LTAC because she needs multiple antibiotic therapy till March 26, 2020 as well as she needs complex wound care and nutritional support. Patient also has multiple medical problem and that is why patient was qualified for LTAC care. Patient will continue to get antibiotic therapy as mentioned till March 26, 2020. Patient will continue all her previous medication as well. Patient seen and examined bedside today. Please see my progress note from today for more detail. Resuscitation Status: 02/13/20 20:01 Resuscitation Status Routine Resuscitation Status: FULL: Full Resuscitation - Labs Lab Results: 02/20/20 03:36 02/20/20 03:36 Microbiology - Entire Visit 02/13/20 20:28 Venous blood - Left Arm Blood Culture - Final NO GROWTH IN 5 DAYS 02/13/20 20:38 Venous blood - Right Arm Blood Culture - Final NO GROWTH IN 5 DAYS 02/13/20 17:04 Urine thibodeaux catheter Urine Culture - Final Yeast species - Diagnostic Interpretation Other Additional comments: Chest x-ray showed cardiomegaly without any acute process Abdomen and pelvis CT scan showed extensive sacral decubitus ulcer with fistulous connection with the rectum not excluded CT angiography showed no central or segmental pulmonary embolism, moderate cardiomegaly with a small left pleural effusion. Cirrhosis with splenomegaly Echocardiography showed EF 40 to 45%, - Physical Exam Vitals: Vital Signs (12 hours) Temp Pulse Resp BP Pulse Ox 02/22/20 08:05 97.9 F 99 18 119/70 100 02/22/20 08:00 100 Weight Admit Weight 179 lb 7 oz Weight 187 lb 8 oz Most Recent Monitor Data Heart Rate from ECG 100 NIBP 114/67 NIBP BP-Mean 82 Respiration from ECG 18 SpO2 98 Physical Exam: The patient was seen and examined on the day of discharge. Problem - Problem (1) Decubitus ulcer, stage 4 with infection Code(s): L89.94 - PRESSURE ULCER OF UNSPECIFIED SITE, STAGE 4; L08.9 - LOCAL INFECTION OF THE SKIN AND SUBCUTANEOUS TISSUE, UNSP Status: Acute (2) UTI (urinary tract infection) Status: Acute Qualifiers: Urinary tract infection type: acute cystitis (3) Osteomyelitis Code(s): M86.9 - OSTEOMYELITIS, UNSPECIFIED Status: Acute Qualifiers: Osteomyelitis type: subacute Osteomyelitis location: other site Qualified Code(s): M86.28 - Subacute osteomyelitis, other site (4) Congestive heart failure Code(s): I50.9 - HEART FAILURE, UNSPECIFIED Status: Chronic Qualifiers: Heart failure type: systolic Heart failure chronicity: chronic Qualified Code(s): I50.22 - Chronic systolic (congestive) heart failure (5) Degenerative joint disease Code(s): M19.90 - UNSPECIFIED OSTEOARTHRITIS, UNSPECIFIED SITE Status: Chronic Qualifiers: Spinal region: unspecified (6) Hypothyroidism Code(s): E03.9 - HYPOTHYROIDISM, UNSPECIFIED Status: Chronic Qualifiers: Hypothyroidism type: unspecified Qualified Code(s): E03.9 - Hypothyroidism, unspecified Plan - Discharge Medications Prescriptions: metroNIDAZOLE [Flagyl] 500 mg IVPB Q8HR #90 bag Fluconazole [Diflucan] 100 mg PO DAILY #7 tab Ferrous Sulfate [Feosol] 325 mg PO QA- #30 tab Home Medications: Medication Instructions Recorded Confirmed Type Furosemide [Lasix] 40 mg PO BID 02/01/20 02/14/20 History Naproxen [Naprosyn] 500 mg PO BID 02/01/20 02/14/20 History Pantoprazole [Protonix] 40 mg PO DAILY 02/01/20 02/14/20 History Potassium Chloride [Klor-Con 10] 10 mg PO DAILY 02/01/20 02/14/20 History traMADol HCl [Tramadol HCl] 50 mg PO Q6HR 02/01/20 02/14/20 History Aspirin [Ecotrin Low Strength] 81 mg PO DAILY #30 tab 02/12/20 02/14/20 Rx Atorvastatin Calcium [Lipitor] 20 mg PO HS #30 tab 02/12/20 02/14/20 Rx Carvedilol [Coreg] 3.125 mg PO BID-WM #60 tab 02/12/20 02/14/20 Rx Clopidogrel Bisulfate [Plavix] 75 mg PO DAILY tab 02/12/20 02/14/20 Rx DAPTOmycin [Cubicin] 500 mg SLOW IVP Q24HR vial 02/12/20 02/14/20 Rx Levothyroxine Sodium [Synthroid] 75 mcg PO 0600 tab 02/12/20 02/14/20 Rx Losartan [Cozaar] 50 mg PO DAILY #30 tab 02/12/20 02/14/20 Rx cefTRIAXone\ROCEPHIN [Rocephin] 2 gm IVPB 1700 vial 02/12/20 02/14/20 Rx Ferrous Sulfate [Feosol] 325 mg PO QAM-WM #30 tab 02/22/20 Rx Fluconazole [Diflucan] 100 mg PO DAILY #7 tab 02/22/20 Rx metroNIDAZOLE [Flagyl] 500 mg IVPB Q8HR #90 bag 02/22/20 Rx Allergies: meperidine [From Demerol] Allergy (Mild, Verified 02/01/20 20:08) Rash Penicillins Allergy (Mild, Verified 02/01/20 20:08) Rash - Discharge Instructions Activity:: Activity as Tolerated Nourishment:: Heart Healthy Diet Therapies:: Occupational Therapy, Physical Therapy, Wound Care Equipment/Supplies:: Thibodeaux Care, Specialty Bed, Wound Care IV Therapy:: PICC Line Care - Follow up Plan Referrals: Noemy Gerber NP [Primary Care Provider] - Disposition: OTHER HOSPITAL INPT Quality - Care Measures CORE MEASURES:: N/A
--- NOTE | 2020-02-24 11:12 | PQF ---
CLINICAL DOCUMENTATION CLARIFICATION FORM: Dear : John Valenzuela MD Date / Time: 02/24/2020 Please exercise your independent, professional judgment in responding to the clarification form. Clinical indicators are provided on the bottom of this form for your review Please check appropriate box(es): [ x ] Excisional Debridement: [ x ] Excised [ ] Cut away [ ] Other: Depth / layer: (deepest layer of debridement): [ x ] Skin [ x] Subcutaneous [ x ] Fascia [ x ] Muscle [ ] Tendon [ ] Bone Appearance of wound: (e.g., down to fresh bleeding tissue, etc.)__to viable tissue that was bleeding Margins: (please specify): / x x Instruments used: [ x ] Scissors [ x ] Scalpel [ x] Other: ____bovie cautery [ ] Non-excisional Debridement: (Removal by ?ushing, brushing, chemical, or washing) Depth / layer: (deepest layer of debridement): [ ] Skin [ ] Subcutaneous [ ] Fascia [ ] Muscle [ ] Tendon [ ] Bone [ ] Incision and Drainage only (No Debridement): Depth: [ ] Skin [ ] Subcutaneous [ ] Fascia [ ] Muscle [ ] Tendon [ ] Bone [ ] Escharectomy [ ] Other procedure diagnosis (Please specify if any) [ ] Unable to determine Physician Signature: Date/Time: For continuity of documentation, please document condition throughout progress notes and discharge summary. Thank You. To be completed by CDI/Coding staff for physician review: Present Clinical Indicators - Signs / Symptoms / Labs Results and Location in Medical Record [ ] I&D [x] Cutting away of tissue (e.g., scissors, scalpel, etc.) [x] The decubitus ulcer was measured to be [id number]. It was found to involve skin, subcutaneous tissue, muscle, fascia and bone. OP note on 02/15 [x] Debridement continued until healthy bleeding tissue was encountered OP note on 02/15 [x] The base of the sacrum was debrided. OP note on 02/15 [x] Procedure: Sharp debridement of sacral decubitus ulcer to include skin, subcutaneous tissue, fascia and muscle OP note on 02/15 Present Risk Factors Results and Location in Medical Record [x] Stage IV sacral decubitus ulcer(15cm x14cm) OP note on 02/15 [ ] Infected/gangrenous ulcer or wound Present Treatments Results and Location in Medical Record [x] Sharp debridement of sacral decubitus ulcer OP note on 02/15 [ ] Dressing changes/MIST therapy/Hyperbaric therapy [ ] [ ] CDS/Lead Data Entry Operator Signature: AAS Phone #: Date/Time: 02/24/2020 This is a permanent part of the Medical Record [facility]
== END 2020-02-22 13:11 | disposition short-term general hospital (02) | DRG 622 ==
LOC: ERS 15:01 → 2NO 19:55 → T4-B 02-17 14:34 → CCU 02-18 17:02 → IMCU/EMU 02-18 23:12 → ONC 02-19 19:56
PROVIDERS: ADMIT Internal Medicine; ATTEND Internal Medicine
PROC: 0KBP0ZZ Excision of Left Hip Muscle, Open Approach (ICD-10-PCS; principal; 2020-02-16)
PROC: 0KBN0ZZ Excision of Right Hip Muscle, Open Approach (ICD-10-PCS; 2020-02-16)
DX: E11.69 Type 2 diabetes mellitus with other specified complication (principal); L89.154 Pressure ulcer of sacral region, stage 4; M86.9 Osteomyelitis, unspecified; R57.9 Shock, unspecified; I50.22 Chronic systolic (congestive) heart failure; B37.49 Other urogenital candidiasis; I25.10 Atherosclerotic heart disease of native coronary artery without angina pectoris; M19.90 Unspecified osteoarthritis, unspecified site; F03.90 Unspecified dementia, unspecified severity, without behavioral disturbance, psychotic disturbance, mood disturbance, and anxiety; N31.9 Neuromuscular dysfunction of bladder, unspecified; I73.9 Peripheral vascular disease, unspecified; I25.5 Ischemic cardiomyopathy; E87.6 Hypokalemia; E03.9 Hypothyroidism, unspecified; Z79.82 Long term (current) use of aspirin; Z90.49 Acquired absence of other specified parts of digestive tract; Z95.5 Presence of coronary angioplasty implant and graft; Z88.8 Allergy status to other drugs, medicaments and biological substances; Z79.899 Other long term (current) drug therapy; Z88.0 Allergy status to penicillin
CPT/HCPCS: 36415; 36416; 36430; 71045; 71275; 74177; 80048; 80053; 81003; 81015; 82140; 82550; 83605; 83690; 83735; 83880; 84443; 84484; 85007; 85025; 85027; 85379; 86140; 86850; 86900; 86901; 87040; 87086; 87635; 93005; 93306; 96365; 96366; 96367; 96375; 96376; J0692; J0696; J0878; J1644; J2250; J2270; J2704; J2997; J3010; J3370; J3475; J3490; J7030; P9016; Q9967; U0003

== ENCOUNTER 2020-06-03 20:01 | Emergency (ER) | payer MEDICARE ==
[2020-06-03 21:23] LABS: #Eosinphils 0.2 thou/uL (0.0-0.7); #Lymphocytes 1.3 thou/uL (1.20-3.40); #Monocytes 0.7 thou/uL (0.11-0.59); #Neutrophils 5.8 thou/uL (1.40-6.50); %Basophils 0.5 % (0.0-1.0); %Eosinophils 2.1 % (0.0-10.0); %Lymphocytes 16.2 % (21.0-51.0); %Monocytes 9.1 % (0.0-10.0); %Neutrophils 72.2 % (42.0-75.0); Hemoglobin 9.7 g/dL (12.0-16.0); Mean Corpuscular HGB CONC 33.2 g/dL (32.0-36.0); Mean Corpuscular Hemoglobin 30.3 pg (27.0-31.0); Mean Corpuscular Volume 91.4 fL (78.0-98.0); Mean Platelet Volume 6.8 fL (7.4-10.4); Platelet Count 249 thou/uL (130-400); RBC Distribution Width 15.3 % (11.5-14.5); Red Blood Cell (RBC) Count 3.21 mill/uL (4.20-5.40)
--- NOTE | 2020-06-03 21:25 | RAD ---
Left foot 3 views: 06/03/2020 COMPARISON: None HISTORY: Infection, foot wound FINDINGS: There is absence of the second toe. There is a focal area of gas lucency in the expected lo cation of the second metatarsal head which may signify soft tissue ulceration or localized gas-forming infection. The medial aspect of the third metatarsal head and the medial aspect of the ba se of the third proximal phalanx is absent which may be postoperative in nature. There is lytic change within the distal second metatarsal with no appreciable second metatarsal head suspicious for osteomyelitis. No acute fracture or dislocation. There is atherosclerotic calcification within the foot and ankle. IMPRESSION: Findings suspicious for gas-containing ulceration and or focal area of gas forming infect ion at the head of the second metatarsal. Lytic change in this region is suspicious for osteomyelitis. MRI of the foot is advised for full assessment.
[2020-06-03 21:41] LABS: ALT (SGPT) 7 U/L (8-55); AST (SGOT) 18 U/L (5-34); Albumin 2.3 g/dL (3.4-4.8); Alkaline Phosphatase 87 U/L (40-110); Anion Gap 11 mmol/L (10-20); BUN (Urea Nitrogen) 11 mg/dL (9.8-20.1); Bilirubin, Total 0.2 mg/dL (0.2-1.2); Calc. Creatinine Clearance 0 mL/min (70-130); Calcium 8.9 mg/dL (7.8-10.44); Carbon Dioxide 25 mmol/L (23-31); Chloride 103 mmol/L (98-107); Glucose 124 mg/dL (83-110); Potassium 4.2 mmol/L (3.5-5.1); Protein, Total 6.3 g/dL (5.8-8.1); Sodium 135 mmol/L (136-145)
== END 2020-06-03 22:20 ==
LOC: ERS 20:01
DX: M86.172 Other acute osteomyelitis, left ankle and foot (principal); F03.90 Unspecified dementia, unspecified severity, without behavioral disturbance, psychotic disturbance, mood disturbance, and anxiety; E11.9 Type 2 diabetes mellitus without complications; I50.9 Heart failure, unspecified; I25.10 Atherosclerotic heart disease of native coronary artery without angina pectoris; D64.9 Anemia, unspecified; M19.90 Unspecified osteoarthritis, unspecified site; Z79.82 Long term (current) use of aspirin; Z79.899 Other long term (current) drug therapy; Z79.4 Long term (current) use of insulin
CPT/HCPCS: 36415; 36416; 80053; 85025

== ENCOUNTER 2020-06-10 12:44 | Inpatient (IN) | payer MEDICARE ==
[~2020-06-10 12:44] MED LIST: Iopamidol-370 76% 500 ML 1 ML ONE
[2020-06-10 13:41] LABS: #Eosinphils 0.2 thou/uL (0.0-0.7); #Lymphocytes 1.7 thou/uL (1.20-3.40); #Monocytes 0.8 thou/uL (0.11-0.59); #Neutrophils 7.8 thou/uL (1.40-6.50); %Basophils 0.1 % (0.0-1.0); %Eosinophils 2.3 % (0.0-10.0); %Monocytes 7.6 % (0.0-10.0); Hemoglobin 8.8 g/dL (12.0-16.0); Mean Corpuscular HGB CONC 33.2 g/dL (32.0-36.0); Mean Corpuscular Hemoglobin 29.8 pg (27.0-31.0); Mean Corpuscular Volume 89.8 fL (78.0-98.0); Mean Platelet Volume 6.9 fL (7.4-10.4); Platelet Count 333 thou/uL (130-400); Red Blood Cell (RBC) Count 2.96 mill/uL (4.20-5.40); White Blood Cell (WBC) Count 10.5 thou/uL (4.8-10.8)
[2020-06-10 13:56] LABS: ALT (SGPT) 9 U/L (8-55); AST (SGOT) 16 U/L (5-34); Albumin 2.3 g/dL (3.4-4.8); Alkaline Phosphatase 94 U/L (40-110); Anion Gap 12 mmol/L (10-20); BUN (Urea Nitrogen) 14 mg/dL (9.8-20.1); Bilirubin, Total 0.7 mg/dL (0.2-1.2); Calc. Creatinine Clearance 0 mL/min (70-130); Calcium 8.9 mg/dL (7.8-10.44); Carbon Dioxide 25 mmol/L (23-31); Chloride 103 mmol/L (98-107); Glucose 95 mg/dL (83-110); Potassium 3.9 mmol/L (3.5-5.1); Protein, Total 6.3 g/dL (5.8-8.1); Sodium 136 mmol/L (136-145)
--- NOTE | 2020-06-10 14:04 | RAD ---
Chest AP view INDICATION: History of altered mental status COMPARISON: April 16, 2020 FINDINGS: Lungs: There is perihilar interstitial prominence Cardiac silhouette: There is moderate to prominent cardiomegaly Pulmonary vasculature: There is pulmonary vascular congestion Pleural spaces: Small bilateral pleural effusions, new Upper abdomen: No abnormality seen. Osseous structures: Chronic osseous changes are stable Additional findings: None. IMPRESSION: Findings suspicious for mild/moderate CHF.
[2020-06-10 14:37] LABS: Bacteria/HPF 4+ HPF (None Seen); Bilirubin Negative (Negative); Blood, Urine Trace (Negative); Clarity Turbid (Clear); Glucose, Urine (Dipstick) Normal (Negative); Ketone, Urine Negative (Negative); Leukocyte 500 Leu/uL (Negative); Nitrite Negative (Negative); Protein, Urine (Dipstick) 30 mg/dL (Neg-Trace); Specific Gravity, Urine 1.016 (1.002-1.036); Squamous Epithelial 0-3 HPF (0-3); Urobilinogen Normal mg/dL (Less than 2); WBC/HPF Greater than 50 HPF (0-3); pH, Urine 5.5 (5.0-9.0)
[2020-06-10 14:47] LABS: Yeast-Budding 3+ HPF (None Seen)
[2020-06-10 14:48] LABS: Yeast-Hyphae 2+ HPF (None Seen)
--- NOTE | 2020-06-10 15:17 | ULT ---
EXAM: Right upper extremity venous duplex ultrasound including color and spectral Doppler imaging: HISTORY: Right arm edema FINDINGS: The visualized right internal jugular, subclavian, axillary, brachial, radial, and ulnar veins demons trate phasic flow with normal compressibility normal augmentation. Right basilic and cephalic veins demonstrate phasic flow. Moderate subcutaneous edema of the arm. IMPRESSION: No evidence for deep venous thrombosis. Moderate subcutaneous edema of the arm.
--- NOTE | 2020-06-10 15:21 | CT ---
EXAM: Brain CTWithout contrast: HISTORY: Altered mental status, possible sepsis COMPARISON: 04/17/2020 FINDINGS: Marked atrophy and chronic white matter ischemic changes, stable. No focal mass or midline shift. No intra or extra-axial hemorrhage. Sinuses and mastoids are clear of acute process. IMPRESSION: No mass or bleed or other significant acute intracranial process. Stable exam.
[2020-06-10] MEDS ORDERED: cefTRIAXone\\ROCEPHIN 2 GM VIAL ONE (15:31)
--- NOTE | 2020-06-10 15:50 | CT ---
CT of abdomen and pelvis: 06/10/2020 COMPARISON: 04/12/2020 HISTORY: Altered mental status, sacral decubitus ulcerations, sepsis TECHNIQUE: Axial CT imaging at 5 mm intervals from lung bases through pubic symphysis with IV and ora l contrast. Coronal and sagittal reformatted imaging obtained. FINDINGS: Incompletely imaged bilateral pleural effusions are noted, small/moderate on the left and s mall on the right, larger on the left and new on the right when compared to the prior examination. There is partial opacification of the partially imaged left lower lobe, nonspecific. Coronary arteria l calcification is noted. No free intraperitoneal air. No focal liver lesion is evident. There is stable peripheral contour irregularity of the liver. The s pleen is grossly unremarkable. The pancreas and the adrenal glands appear grossly unremarkable. The gallbladder is nonvisualized, presumably surgically absent. There is a Howell catheter in the urinary bladder. There is hydronephrosis on the left with prominent left-sided hydronephrosis with a transition to a n ondilated ureter on axial image 64. There is a linear calcification in this region which is felt to most likely represent a vascular structure and not an obstructing stone within compared to the prior examination. Thus, this could represent a ureteral stricture causing left-sided hydronephrosis/hydroureter or a nonvisualized mass. However, similar findings are seen on the right in that there is right-sided hydroureter and hydronep hrosis with transition to decompressed distal ureter at the axial level of the pelvic inlet. While bilateral tumor or stricture cannot be fully excluded this may be related to a transient phenomenon, potentially related to previously distended urinary system with partial decompression following Howell catheter placement. Thus, follow-up imaging is advised to evaluate the bilateral hydronephrosis and hydroureter. The rectum is expanded and filled with stool suggesting fecal impaction. There is stranding of the ad jacent fat, including within the presacral space which could be related to stercoral colitis. However, this is also in the region of prominent skin breakdown associated with decubitus ulceration inferior to the sacrum on the left. There is prominent ostial lysis of the coccyx and inferior aspect of the sacrum with possible exposed bone suggesting prominent sacral osteomyelitis. No evidence for bowel obstruction or bowel inflammatory change. There is extensive multifocal atherosclerotic calcification of the abdominal aorta and its branches. No drainable abscess is noted within the abdomen/pelvis. No discrete abdominal or pelvic lymphadenopathy. Is multilevel degenerative change within the lower lumbar spine with prominent bilateral lower lumbar spine facet hypertrophy. IMPRESSION: 1. There is a large area of skin loss and subcutaneous fat loss measuring 7.4 cm in transverse dimens ion inferior to the sacrum in a posterior midline and posterior left para midline region suggesting a large sacral decubitus ulceration. There is adjacent coccygeal and sacral osteolysis consistent wit h extensive osteomyelitis, likely slightly progressed since the prior exam. This wound is immediately adjacent to the presacral fat which demonstrates prominent stranding. The adjacent rectum is expanded and filled with stool. Stranding of the presacral fat may signify change associated with the decubitus ulcer but could also be related to stercoral colitis. 2. Hydronephrosis and hydroureter bilaterally. Please see above discussion. 3. Bilateral pleural effusions, left greater than right, larger than on the prior examination.
--- NOTE | 2020-06-10 17:09 | PDOC.FPRHP ---
- History of Present Illness Chief Complaint: AMS History of Present Illness: 74 yo F with PMHx of osteomyelitis s/p R toe amputation, Patient unable to give information. HPI from [facility]. Baseline for patient is A&OX1 and requires assistance for eating, dressing, and basic hygiene. Per [facility], patient was brought to ED 2/2 decreased talking. On paperwork sent from [facility], report is that AMS developed sudden onset today. She has been afebrile with stable VS-BP 96/50 stable at [facility]. Attempted to call Daughter and . LMOR to call back for more information. ED Course: Patient received 1 L NS, 2 g Rocephin - Allergies/Adverse Reactions Allergies Allergy/AdvReac Type Severity Reaction Status Date / Time meperidine [From Demerol] Allergy Mild Rash Verified 06/10/20 21:37 Penicillins Allergy Mild Rash Verified 06/10/20 21:37 - Home Medications Medication Instructions Recorded Confirmed Type Pantoprazole [Protonix] 40 mg PO DAILY 02/01/20 06/10/20 History Potassium Chloride [Klor-Con 10] 10 mg PO DAILY 02/01/20 06/10/20 History traMADol HCl [Tramadol HCl] 50 mg PO Q6HR 02/01/20 06/10/20 History Levothyroxine Sodium [Synthroid] 75 mcg PO 0600 tab 02/12/20 06/10/20 Rx Ferrous Sulfate [Feosol] 325 mg PO QAM-WM #30 tab 02/22/20 06/10/20 Rx Insulin Detemir [Levemir Flextouch] 2 unit SQ DAILY 04/12/20 04/18/20 History Nateglinide 120 mg PO DAILY 04/12/20 06/10/20 History Rifampin 300 mg PO DAILY 04/12/20 06/10/20 History Acetaminophen [Tylenol Extra 1,000 mg PO Q4H PRN 06/10/20 06/10/20 History Strength] Ascorbic Acid [Vitamin C] 500 mg PO DAILY 06/10/20 06/10/20 History Aspirin [Ecotrin] 81 mg PO DAILY 06/10/20 06/10/20 History Atorvastatin Calcium [Lipitor] 20 mg PO DAILY 06/10/20 06/10/20 History Clopidogrel Bisulfate [Plavix] 75 mg PO DAILY 06/10/20 06/10/20 History HYDROcodone Bit/APAP 10/325 [Cash 1 tab PO Q24HR 06/10/20 06/10/20 History 10/325] HYDROcodone Bit/APAP 5/325 [Cash 1 tab PO Q4HR PRN 06/10/20 06/10/20 History 5/325] Midodrine 10 mg PO BID 06/10/20 06/10/20 History Morphine ER [MS Contin] 15 mg PO BID 06/10/20 06/10/20 History Sennosides/Docusate Sodium 1 each PO DAILY PRN 06/10/20 06/10/20 History [Senna-Docusate Sodium Tablet] Sodium Hypochlorite [Dakin's 1 applic TOP ASDIR 06/10/20 06/10/20 History Quarter Strength 0.125%] Zinc 50 mg PO DAILY 06/10/20 06/10/20 History - History Per chart review PMHx: CAD, CHF, HTN, dementia, T2DM, hypothyroid, osteomyelitis in R toe, chronic sacral decubitus ulcer stage 4, urinary incontinence s/p thibodeaux catheter, HoThyroidism PSHx: R toe amputation FHx: noncontributory Social: unable to obtain. Baseline function in HPI. - Review of Systems ROS unobtainable: due to mental status - Vital signs BP: 116/76, Pulse: 82, Resp: 17, O2 sat: 99 on (Room Air), Time: 06/10/2020 12:48. BP: 123/82, MAP: 95, Pulse: 90, Resp: 18, Pain: 0, O2 sat: 100 on (Room Air), Time: 06/10/2020 12:54. Temp: 98.7 (Oral), Time: 06/10/2020 13:18. BP: 95/54, Pulse: 87, Resp: 15, O2 sat: 100 on (Room Air), Time: 06/10/2020 14:30. BP: 95/64, Pulse: 93, Resp: 16, Temp: 98.1 (Oral), Pain: 0, O2 sat: 98 on (Room Air), Time: 06/10/2020 18:08. Wt: 66 kg - Physical Exam Constitutional: NAD HEENT: normocephalic and atraumatic, grossly normal vision, grossly normal hearing Heart: RRR, normal S1/S2 -Heart: Systolic ejection murmur / Lungs: CTAB, no respiratory distress -Lungs: Poor air movement, diminished breath sounds Abdomen: soft, non-tender, bowel sounds present -Abdomen: Rectal exam performed with manual disimpaction. Copious amounts of hard stool removed from rectal vault. No gross hematochezia or melena. No external or internal hemorrhoids. 1 bag soap suds enema placed into rectal vault -Musculoskeletal: L foot in unaboot, R foot with bandage/dressing -Neurological: A&O X1, Follows simple commands, no focal deficits -Skin: Large stage 4 Scaral decubitus ulcer with granulation tissue and sloughing tissue FMR H&P: Results - Labs Result Diagrams: 06/10/20 13:09 06/10/20 13:09 Lab results: WBC 10.5 thou/uL (4.8-10.8) 06/10/20 13:09 Hgb 8.8 g/dL (12.0-16.0) L 06/10/20 13:09 Hct 26.6 % (36.0-47.0) L 06/10/20 13:09 MCV 89.8 fL (78.0-98.0) 06/10/20 13:09 Plt Count 333 thou/uL (130-400) 06/10/20 13:09 Neutrophils % 74.0 % (42.0-75.0) 06/10/20 13:09 Sodium 136 mmol/L (136-145) 06/10/20 13:09 Potassium 3.9 mmol/L (3.5-5.1) 06/10/20 13:09 Chloride 103 mmol/L (98-107) 06/10/20 13:09 Carbon Dioxide 25 mmol/L (23-31) 06/10/20 13:09 BUN 14 mg/dL (9.8-20.1) 06/10/20 13:09 Creatinine 0.67 mg/dL (0.6-1.1) 06/10/20 13:09 Glucose 95 mg/dL (83-110) 06/10/20 13:09 Calcium 8.9 mg/dL (7.8-10.44) 06/10/20 13:09 Total Bilirubin 0.7 mg/dL (0.2-1.2) 06/10/20 13:09 AST 16 U/L (5-34) 06/10/20 13:09 ALT 9 U/L (8-55) 06/10/20 13:09 Alkaline Phosphatase 94 U/L (40-110) 06/10/20 13:09 Creatine Kinase 84 U/L (29-168) 06/10/20 13:09 Serum Total Protein 6.3 g/dL (5.8-8.1) 06/10/20 13:09 Albumin 2.3 g/dL (3.4-4.8) L 06/10/20 13:09 Urine Ketones Negative mg/dL (Negative) 06/10/20 13:14 Urine Blood Trace (Negative) A 06/10/20 13:14 Urine Nitrite Negative (Negative) 06/10/20 13:14 Ur Leukocyte Esterase 500 Tyson/uL (Negative) A 06/10/20 13:14 Urine RBC 11-20 HPF (0-3) A 06/10/20 13:14 Urine WBC Greater than 50 HPF (0-3) A 06/10/20 13:14 Ur Squamous Epith Cells 0-3 HPF (0-3) 06/10/20 13:14 Urine Bacteria 4+ HPF (None Seen) A 06/10/20 13:14 - EKG Interpretation EKG: Nonspecific T wave changes, no evidence of STEMI - Radiology Interpretation Chest x-ray Status: report reviewed by me (Pulmonary vascular congestion, New small BL pleural effusions) CT scan - abdomen Status: report reviewed by me Additional comment: 7.4 cm sacral decubitus ulcer, concern for osteomyelitis and stercoral colitis, bilateral hydronephrosis and hydroureter. Bilateral pleural effusions L>R. CT scan - head Status: report reviewed by me Additional comment: No acute intracranial process US - venous Status: report reviewed by me Additional comment: RUE-no DVT, mild edema FMR H&P: A/P - Plan Acute metabolic encephalopathy likely 2/2 UTI - does not meet sepsis criteria - acute onset today per [facility], Saturday per daughter - More confusion and more difficult to have conversations with - Treat UTI with Rocephin, likely colonized with chronic thibodeaux - monitor status Constipation, concern for stercoral colitis - Rectal exam with no gross bleeding or abnormality - enema performed - GoLytely solution BL pleural effusions - CXR with vascular congestion - BNP pending, if elevated tx with 20 mg IV Lasix Hydronephrosis/hydroureter - Adjust thibodeaux, if no or mild UOP, consider replacing Chronic osteomyelitis - Areas of concern include sacrum and R toe - s/p Daptomycin - ESR, CRP pending - Consider Dr. Gar consult, requesting outside records T2DM - SSI at [facility], will continue and monitor with ACHS glucose, hypoglycemia protocol CAD - Continue home medications CHF - Continue home medications - monitor fluid status Anemia - Chronic, appears to be near baseline per chart review HTN - Home medications as appropriate with BP HoThyroidism - MD aware - Thyroid function tests pending Urinary incontinence - Chronic thibodeaux - possible change as above Code: DNI per daughter Diet: CC DVT ppx: Lovenox IVF: None PCP: OOT CC Dispo: Admit tele obs, eLOS likely <48 hrs pending mental status and further workup. FMR H&P: Upper Level - Plan Date/Time: 06/10/20 1707 Sarah Licona, have evaluated this patient and agree with findings/plan as outlined by business intern resident. Pertinent changes/additions are listed here. 74 yo F w/ PMH of CAD s/p stent, mixed CHF, T2DM, [facility] status. Patient talking less per nursing. Per daughter, patient is usually AO to person, place, and situation. She does not always know the time since recent hospitalization. She recently has been on a course of antibiotics for osteomyelitis and finished one of them yesterday. In ED: CBC showed anemia Hgb 8.8 (chronic) and CMP unremarkable. CXR showed mild-moderate pulmonary vascular congestion. Brain CT showed no acute findings. Abdomen/pelv CT showed: bilateral hydronephrosis. Bilat pleural effusions L>R. Fecal impaction, possible stercolitis. Possible sacral osteomylelitis EKG: Sinus rhythm, low voltage QRS, ME prolonged at 208 Meds: NS 1000 ml, Rocephin 2 g, On physical exam, patient is AO to self only. She is unable to give a history. 2/6 systolic murmur present on exam. Lung sounds diminished diffusely, no wheezes or crackles auscultated. Patient has dressing over right foot. No swelling BLE. # Acute Encephalopathy - Unknown cause at this time. CT unremarkable. May be 2/2 UTI vs urinary retention vs fecal impaction vs osteomyelitis vs other -UTI on labs, however patient has thibodeaux chronically and she is likely colonized. -S/p Rocephin in ED, will continue this for now -Admit to tele obs, screening covid swab pending #CHF, mixed -recent echo showed: EF 35%, 1/3 diastolic dysfunction, diffuse hypokinesis -BNP pending, mild to moderate pulmonary vascular congestion on CXR -Lungs diminished on exam, no edema BLE Strict I/Os, give additional Lasix if needed #Hydronephrosis -Report states may have been 2/2 bladder retention, recommend repeat imaging, -Pt has chronic thibodeaux; will attempt to adjust the thibodeaux and monitor strict I/Os. # Possible Sacral Osteomyelitis # hx Osteomyelitis right toe s/p amputation -Pt has been on 6 weeks of IV antibiotics for osteomyelitis, daughter reports med recently stopped (possibly daptomycin, which is not in her medications in her chart) -continue rifampin -ESR, CRP pending # IDDM -SSI; patient is on a specific sliding scale at home #Hypothyroidism -Continue home meds #Fecal impaction, possible Stercoral colitis -bedside disimpaction -PO bowel regimen #CAD -s/p coronary stent placement #Normocytic anemia -appears to be chronic Code: Do not intubate; cardiac code only DVT ppx: lovenox GI ppx: home PPI PCP: OOT Dispo: admit to tele obs, monitor mental status, perform disimpaction and bowel regimen. Addendum - Attending - Attending Attestation Date/Time: 06/10/200 I personally evaluated the patient and discussed the management with Dr. North/Arabella. I agree with the History, Examination, Assessment and Plan documented above with any addition or exceptions noted below. [facility]. baseline A&Ox1 with known large sacral decubitus ulcer s/p recent prolonged IV abx. she had significant stool burden throughout the colon and was manually disimpacted. Will need to be aggressive with her bowel regimen to prevent obstipatoin. Given her frail state, we will need to have a serious conversation with family regarding goal of care. with her large chronic wound and underlying dementia she would likely be a candidate for hospice. There is also concern for severe protein calorie malnutrition with her low albumin. obtaining prealbumin.
[2020-06-10] MEDS ORDERED: Acetaminophen 325 MG TAB PO PRN (17:58)
[2020-06-10] MEDS ORDERED: Dextrose 50% Abboject 50 ML SYRINGE SLOW IVP PRN (18:06)
[2020-06-10] MEDS ORDERED: Dextrose 5% in Water 1,000 ML IV PRN (18:06)
[2020-06-10] MEDS ORDERED: HumaLOG 300 UNITS/3 ML VIAL SC PRN ×2 (18:06)
[2020-06-10 19:29] LABS: CKMB 2.3 ng/mL (0-6.6)
[2020-06-10] MEDS ORDERED: GoLYTELY 4,000 ml Bottle PO SCH (20:00)
[2020-06-10] MEDS ORDERED: Fleet Enema 133 ML BOT PR SCH (20:00)
[2020-06-10] MEDS: Morphine ER 15 MG TAB PO SCH (21:59)
[2020-06-10] MEDS ORDERED: Magnesium Citrate 300 ML BOT PO SCH (22:00)
[2020-06-10] MEDS ORDERED: Furosemide 20 MG/2 ML VIAL SLOW IVP SCH (23:00)
[2020-06-11] MEDS ORDERED: traMADol HCl 50 MG TAB PO PRN (03:38)
[2020-06-11] MEDS: HYDROcodone/Acetaminophen 5/325 mg Tablet PO PRN (03:50)
[2020-06-11 05:03] LABS: Anion Gap 15 mmol/L (10-20); BUN (Urea Nitrogen) 12 mg/dL (9.8-20.1); Calc. Creatinine Clearance 86 mL/min (70-130); Calcium 8.5 mg/dL (7.8-10.44); Carbon Dioxide 20 mmol/L (23-31); Chloride 105 mmol/L (98-107); Glucose 94 mg/dL (83-110); Potassium 3.5 mmol/L (3.5-5.1); Sodium 136 mmol/L (136-145)
[2020-06-11 05:22] LABS: Band 12 % (5-11); Eosinophils 3 % (0-10); Hemoglobin 7.5 g/dL (12.0-16.0); Lymphocytes 24 % (21-51); MDiff Complete? YES; Mean Corpuscular HGB CONC 32.6 g/dL (32.0-36.0); Mean Corpuscular Hemoglobin 29.1 pg (27.0-31.0); Mean Corpuscular Volume 89.4 fL (78.0-98.0); Mean Platelet Volume 7.1 fL (7.4-10.4); Monocytes 7 % (0-10); Neutrophil 54 % (42-75); Platelet Count 286 thou/uL (130-400); RBC Distribution Width 14.8 % (11.5-14.5); Red Blood Cell (RBC) Count 2.57 mill/uL (4.20-5.40)
[2020-06-11 05:28] LABS: SARS-CoV-2 PCR by NAA Not Detected (NotDetected)
[2020-06-11] MEDS: Levothyroxine Sodium 75 MCG TAB PO SCH (05:31)
--- NOTE | 2020-06-11 05:32 | PDOC.FM ---
- Subjective Subjective: Ms. Damon is in no acute distress this morning. She is resting comfortably in bed and easily arousable. She states she had a good night and that nothing is bothering her but she will not answer orientation questions at this time and she is minimally conversive. - Objective Vital Signs & Weight: Vital Signs (12 hours) Temp Pulse Resp BP Pulse Ox 06/11/20 03:51 97.9 F 89 20 130/62 96 06/11/20 00:00 100 06/10/20 20:50 98.8 F 105 H 19 141/63 H 95 06/10/20 19:58 95 Weight Weight 67.188 kg VS evaluated and all normal. Result Diagrams: 06/11/20 03:46 06/11/20 03:46 Phys Exam - Physical Examination Constitutional: NAD Neck: supple Respiratory: no wheezing, no rales, clear to auscultation bilateral Cardiovascular: no significant murmur Severe systolic murmur Skips a beat every 3rd-4th beat. Occurs with inspiration Minimal edema in BLE Boot on R leg Dx/Plan - Plan Plan: Acute metabolic encephalopathy likely 2/2 UTI - does not meet sepsis criteria - More confused and difficult to have conversations with, per NH. Baseline is A&Ox1 per NH - D/c Rocephin given she is on Rifampin - monitor status - UCx pending. Will adjust abx accordingly Constipation, concern for stercoral colitis - Rectal exam with no gross bleeding or abnormality - fecal disimpaction performed 06/10. - s/p enema - Also receiving Miralax, Senna, Mag citrate Chronic osteomyelitis - Areas of concern include sacrum and R toe - s/p Daptomycin. On Rifampin - ESR elevated at 66 - CRP pending - Consider consulting Dr. Gar, although he has reportedly already stated this is not something that will heal at this point Stage IV sacral decubitus ulcer - Dr. Huertas consulted, appreciate recs * Wound vac placement. Opines this wound will never heal - Wound care consulted - Palliative care consulted for goals of care BL pleural effusions - CXR with vascular congestion - BNP elevated at 364. Unknown baseline - 20mg IV lasix given overnight - Mild BLE edema today. Will not continue lasix at this time - Monitor fluid status. Caution with IVF Hydronephrosis/hydroureter - Adjust thibodeaux, if no or mild UOP, consider replacing - 1400mL output recorded overnight. Continue to monitor, strict I/O T2DM - SSI at [facility], will continue and monitor with ACHS glucose, hypoglycemia protocol - Regular diet. DM is low priority currently in setting of poor prognosis CAD - Continue home medications CHF - Continue home medications - monitor fluid status Anemia - Hgb 7.5 this am - Baseline is hgb 8.3 - Monitor with am CBCs and transfuse if hgb <7 HTN - Home medications as appropriate with BP - Continue to monitor HoThyroidism - TSH and fT4 nml Urinary incontinence - Chronic thibodeaux - possible change as above Code: DNI per daughter Diet: Regular DVT ppx: Lovenox IVF: None PCP: [facility]OT CC Dispo: Admit tele obs, LOS pending mental status and further workup. Palliative care goals of care conversation also pending. Addendum - Attending - Attending Attestation Date/Time: 06/11/20 1011 I personally evaluated the patient and discussed the management with Dr. Culver. I agree with the History, Examination, Assessment and Plan documented above with any addition or exceptions noted below. Palliative care consult placed. Will reach out to family to discuss hospice today.
[2020-06-11 07:28] LABS: Troponin I 0.035 ng/mL (< 0.028)
[2020-06-11] MEDS: Aspirin 81 mg Enteric Coated Tablet PO SCH (08:54)
[2020-06-11] MEDS: Atorvastatin Calcium 20 MG TAB PO SCH (08:54)
[2020-06-11] MEDS: Ferrous Sulfate 325 MG TAB PO SCH (08:54)
[2020-06-11] MEDS: Potassium Chloride 10 MEQ TAB PO SCH (08:55)
[2020-06-11] MEDS: Polyethylene Glycol 3350 17 GM Packet PO SCH (08:55)
[2020-06-11] MEDS: Clopidogrel Bisulfate 75 MG TAB PO SCH (08:55)
[2020-06-11] MEDS: Midodrine HCl 5 MG TAB PO SCH (08:55)
[2020-06-11] MEDS: Enoxaparin Sodium 40 MG/0.4 ML SYRINGE SC SCH (08:55)
[2020-06-11] MEDS: Morphine ER 15 MG TAB PO SCH ×2 (08:56→21:12)
[2020-06-11] MEDS: Senokot S 8.6-50 MG TAB PO SCH ×2 (08:56→21:14)
[2020-06-11] MEDS: Nateglinide 120 MG TAB PO SCH (08:56)
[2020-06-11] MEDS ORDERED: Non-Formulary Item 1 EACH (Ascorbic Acid [Vitamin C] 500 MG Capsule) PO SCH (09:00)
[2020-06-11] MEDS ORDERED: Magnesium Citrate 300 ML BOT PO SCH (09:00)
[2020-06-11] MEDS ORDERED: Non-Formulary Item 1 EACH (Zinc [Zinc] 50 MG Tablet) PO SCH (09:00)
--- NOTE | 2020-06-11 09:48 | PDOC.EVN ---
Event Note - Event Note Event Note: Consult dictated. I did see the sacral wound after my dictation which is stage 4. Discussed with wound care who will place wound vac tomorrow. No plans for debridement for now. This wound is never going to heal.
[2020-06-11] MEDS: Rifampin 300 MG CAP PO SCH (10:15)
[2020-06-11] MEDS: Ascorbic Acid 500 mg Chewable Tablet PO SCH (10:15)
[2020-06-11] MEDS: Zinc Sulfate 220 MG CAP PO SCH (10:15)
--- NOTE | 2020-06-11 10:36 | CON ---
DATE OF CONSULTATION: 06/11/2020 CHIEF COMPLAINT: Stercoral colitis, sacral decubitus wound. HISTORY OF PRESENT ILLNESS: This is a 74-year-old female with a history of dementia, bed-bound, known osteo, presenting with septic shock. She also had altered mental status. The hemodynamics improved on presentation. CT scan of the abdomen and pelvis showed known sacral decubitus wound, but question of stercoral colitis. PAST MEDICAL HISTORY: Includes coronary artery disease; CHF; hypertension; dementia; diabetes; hypothyroid; osteomyelitis, right toe; osteomyelitis, left second toe; decubitus ulcer; urinary incontinence; and hypothyroidism. SURGICAL HISTORY: Toe amputation. SOCIAL HISTORY: Not able to obtain. REVIEW OF SYSTEMS: 10-system review of systems otherwise negative unless described above. PHYSICAL EXAMINATION: VITAL SIGNS: Pulse 80, respirations 18, temperature is 98.5, and blood pressure is 95/61. HEENT: Sclerae anicteric. Oropharynx clear. NECK: No lymphadenopathy. CHEST: Coarse breath sounds bilateral. HEART: Regular rate. ABDOMEN: Soft, nontender, nondistended. EXTREMITIES: Lower extremities, there is evidence of chronic wound to the medial right and left first toes. There is surgical absence of left second toe with a small open wound. Her sacral decubitus wounds are dressed. LABORATORY DATA: White blood cell count is 9, hemoglobin 7.5, platelets 286, she has 12 bands. Urine was dark turbid, greater than 50 wbc's, leukocyte esterase grossly positive, bacteria 4+, yeast 3+. CT as above. ASSESSMENT: 1. Rectal fecal impaction, question of stercoral colitis, but she had a bowel movement after enema last night. 2. History of toe amputation and question of osteomyelitis, on IV antibiotics. 3. Sacral decubitus wound. PLAN: We will allow for IV antibiotics for now. I suspect with the bowel regimen she is on, she will have better bowel movements. We will assess the wound to her sacrum in a few days to determine the need for debridement. We will follow with you. Job ID: [id number]
[2020-06-11] MEDS: HYDROcodone/Acetaminophen 10/325 mg Tablet PO SCH (11:11)
[2020-06-11] MEDS: Fluconazole In NaCl,Iso-Osm 400 MG in Premix Bag 1 BAG IVPB SCH (11:47)
[2020-06-11] MEDS ORDERED: cefTRIAXone\\ROCEPHIN 1 GM in Sodium Chloride 0.9% 100 ML IVPB SCH (15:00)
[2020-06-12] MEDS: Levothyroxine Sodium 75 MCG TAB PO SCH (06:01)
--- NOTE | 2020-06-12 06:28 | PDOC.FM ---
- Subjective Subjective: Gabrielle is more talkative today than yesterday and is oriented to self and to being in a hospital, although she does not know which one or which city. She is in no acute distress, was resting comfortably, and easily arousable. She denies anything bothering her and any pain. When asked about pain on her bottom she states she has had it before and for a long time. When I ask if she has it now she states "Well I guess maybe". She is unable to answer whether her pain is severe or mild; she continues to deny anything is bothering her. She was hungry and eager to drink her Ensure. - Objective Vital Signs & Weight: Vital Signs (12 hours) Temp Pulse Resp BP Pulse Ox 06/12/20 04:00 98.4 F 82 20 112/61 100 06/12/20 03:36 99 06/12/20 00:00 79 100/58 L 06/11/20 19:45 97.9 F 90 16 107/51 L 99 Weight Admit Weight 67.188 kg Weight 72.983 kg I&O: 06/10/20 06/11/20 06/12/20 06:59 06:59 06:59 Intake Total 600 670 Output Total 1400 1600 Balance -800 -930 Result Diagrams: 06/12/20 06:36 06/11/20 03:46 Phys Exam - Physical Examination Constitutional: NAD Neck: supple Respiratory: no wheezing, no rales, clear to auscultation bilateral Cardiovascular: RRR Severe systolic murmur Gastrointestinal: soft, non-tender, no distention, positive bowel sounds Musculoskeletal: no edema Neurological: non-focal Skin: no rash Dx/Plan - Plan Plan: Acute metabolic encephalopathy likely 2/2 UTI - does not meet sepsis criteria - Baseline is A&Ox1 per [place], which she has met today - D/c Rocephin (06/10 - 06/11) given she is on Rifampin - monitor mental status - UCx grew yeast. Started her on Fluconazole (06/11) - BCx NGTD x2 Constipation, concern for stercoral colitis - Rectal exam with no gross bleeding or abnormality - fecal disimpaction performed + enema 06/10 - Also receiving Miralax, Senna, Mag citrate - BMs have been recorded Chronic osteomyelitis - Areas of concern include sacrum and R toe - s/p Daptomycin. On Rifampin - ESR elevated at 66. CRP elevated at 11.82. Ordered so they can be trended throughout tx - Consider consulting Dr. Gar, although he has reportedly already stated this is not something that will heal at this point Stage IV sacral decubitus ulcer - Dr. Huertas consulted, appreciate recs * Wound vac placement. Opines this wound will never heal * Will follow and assess for possible debridement in the future - Wound care consulted - Palliative care consulted for goals of care Multiple skin wounds - In addition to sacral ulcer, Wound Care has documented various pictures of wounds on her back, b/l feet, and post R thigh - We appreciate wound care's involvement and will follow their recs BL pleural effusions - CXR with vascular congestion - BNP elevated at 364. Unknown baseline - Euvolemic on exam. Will not continue lasix at this time - Monitor fluid status. Caution with IVF Hydronephrosis/hydroureter - Adjust thibodeaux, if no or mild UOP, consider replacing - 1400mL > 1600mL output recorded. Continue to monitor, strict I/O. - No need to replace thibodeaux at this time T2DM - SSI and Neglitinide at [facility], but BG 65 this am. * D/c Neglitinide but will leave mild and bedtime SSI - Monitor with ACHS glucose; hypoglycemia protocol - Regular diet. DM is low priority currently in setting of poor prognosis CAD - Continue home medications CHF - Continue home medications - monitor fluid status Anemia - Hgb 7.4 this am. Baseline is hgb 8.3 - Transfuse 1u pRBCs in setting of severe valvular dysfunction and inability to accurately assess for sxs - Monitor with am CBCs HTN - Home medications as appropriate with BP - Continue to monitor HoThyroidism - TSH and fT4 nml Urinary incontinence - Chronic thibodeaux Code: DNI per daughter Diet: Regular DVT ppx: Lovenox IVF: None PCP: OOT CC Dispo: Admit tele obs, LOS pending mental status and further workup. Palliative care goals of care conversation also pending. Addendum - Attending - Attending Attestation Date/Time: 06/12/20 1008 I personally evaluated the patient and discussed the management with Dr. Culver. I agree with the History, Examination, Assessment and Plan documented above with any addition or exceptions noted below. Tx 1U PRBC to help with wound healing. palliative care pending.
[2020-06-12 07:18] LABS: #Eosinphils 0.2 thou/uL (0.0-0.7); #Lymphocytes 1.6 thou/uL (1.20-3.40); #Monocytes 0.6 thou/uL (0.11-0.59); #Neutrophils 4.3 thou/uL (1.40-6.50); %Basophils 0.4 % (0.0-1.0); %Eosinophils 3.3 % (0.0-10.0); %Lymphocytes 23.9 % (21.0-51.0); %Neutrophils 63.5 % (42.0-75.0); Hemoglobin 7.4 g/dL (12.0-16.0); Mean Corpuscular Volume 90.5 fL (78.0-98.0); Platelet Count 271 thou/uL (130-400); RBC Distribution Width 14.9 % (11.5-14.5); Red Blood Cell (RBC) Count 2.55 mill/uL (4.20-5.40); White Blood Cell (WBC) Count 6.8 thou/uL (4.8-10.8)
[2020-06-12] MEDS: Senokot S 8.6-50 MG TAB PO SCH ×2 (08:21→20:09)
[2020-06-12] MEDS: Rifampin 300 MG CAP PO SCH (08:21)
[2020-06-12] MEDS: Atorvastatin Calcium 20 MG TAB PO SCH (08:21)
[2020-06-12] MEDS: Morphine ER 15 MG TAB PO SCH ×2 (08:21→20:09)
[2020-06-12] MEDS: Polyethylene Glycol 3350 17 GM Packet PO SCH (08:21)
[2020-06-12] MEDS: Midodrine HCl 5 MG TAB PO SCH (08:22)
[2020-06-12] MEDS: Aspirin 81 mg Enteric Coated Tablet PO SCH (08:22)
[2020-06-12] MEDS: Clopidogrel Bisulfate 75 MG TAB PO SCH (08:22)
[2020-06-12] MEDS: Potassium Chloride 10 MEQ TAB PO SCH (08:23)
[2020-06-12] MEDS: Ascorbic Acid 500 mg Chewable Tablet PO SCH (08:23)
[2020-06-12] MEDS: Nateglinide 120 MG TAB PO SCH (08:23)
[2020-06-12] MEDS: Ferrous Sulfate 325 MG TAB PO SCH (08:23)
[2020-06-12] MEDS: Enoxaparin Sodium 40 MG/0.4 ML SYRINGE SC SCH (08:24)
[2020-06-12] MEDS: Zinc Sulfate 220 MG CAP PO SCH (08:24)
[2020-06-12] MEDS: HYDROcodone/Acetaminophen 10/325 mg Tablet PO SCH (09:17)
[2020-06-12] MEDS: Fluconazole In NaCl,Iso-Osm 400 MG in Premix Bag 1 BAG IVPB SCH (14:46)
[2020-06-12] MEDS: HYDROcodone/Acetaminophen 5/325 mg Tablet PO PRN (15:36)
[2020-06-13 04:42] LABS: #Eosinphils 0.2 thou/uL (0.0-0.7); #Lymphocytes 1.5 thou/uL (1.20-3.40); #Monocytes 0.6 thou/uL (0.11-0.59); #Neutrophils 6.3 thou/uL (1.40-6.50); %Basophils 0.3 % (0.0-1.0); %Eosinophils 2.8 % (0.0-10.0); %Monocytes 6.5 % (0.0-10.0); %Neutrophils 73.4 % (42.0-75.0); Hemoglobin 8.8 g/dL (12.0-16.0); Mean Corpuscular HGB CONC 31.9 g/dL (32.0-36.0); Mean Corpuscular Hemoglobin 28.9 pg (27.0-31.0); Mean Corpuscular Volume 90.5 fL (78.0-98.0); Platelet Count 266 thou/uL (130-400); RBC Distribution Width 14.5 % (11.5-14.5); Red Blood Cell (RBC) Count 3.03 mill/uL (4.20-5.40); White Blood Cell (WBC) Count 8.6 thou/uL (4.8-10.8)
[2020-06-13 04:57] LABS: Anion Gap 13 mmol/L (10-20); BUN (Urea Nitrogen) 11 mg/dL (9.8-20.1); Calc. Creatinine Clearance 98 mL/min (70-130); Calcium 8.3 mg/dL (7.8-10.44); Carbon Dioxide 24 mmol/L (23-31); Chloride 103 mmol/L (98-107); Glucose 92 mg/dL (83-110); Potassium 4.5 mmol/L (3.5-5.1); Sodium 135 mmol/L (136-145)
[2020-06-13] MEDS: Levothyroxine Sodium 75 MCG TAB PO SCH (05:18)
--- NOTE | 2020-06-13 06:57 | PDOC.FM ---
- Subjective Subjective: No acute overnight events. Pt oriented only to self this AM. Endorses pain associated with her decubitus ulcer. Denies additional complaints. - Objective Vital Signs & Weight: Vital Signs (12 hours) Temp Pulse Resp BP Pulse Ox 06/13/20 03:13 98.1 F 111 H 21 H 133/68 94 L 06/13/20 00:00 74 06/12/20 19:12 98.4 F 74 18 106/53 L 99 Weight Admit Weight 67.188 kg Weight 72.484 kg I&O: 06/11/20 06/12/20 06/13/20 06:59 06:59 06:59 Intake Total 334 678 4794 Output Total 1400 1600 1200 Balance -800 -930 147 Result Diagrams: 06/13/20 04:15 06/13/20 04:15 Phys Exam - Physical Examination Constitutional: NAD HEENT: sclera anicteric dry MM Neck: supple Respiratory: clear to auscultation bilateral Cardiovascular: RRR systolic murmur Gastrointestinal: soft, non-tender, positive bowel sounds RLE in soft boot moves bilateral UE Deviation from normal: oriented to self only Dx/Plan - Plan Plan: Acute metabolic encephalopathy likely 2/2 UTI vs worsening dementia - does not meet sepsis criteria - Baseline is A&Ox1 per NH, which she has met today - D/c Rocephin (06/10 - 06/11) given she is on Rifampin - monitor mental status - UCx grew yeast. Started her on Fluconazole (06/11) - BCx NGTD x2 Constipation, concern for stercoral colitis - Rectal exam with no gross bleeding or abnormality - fecal disimpaction performed + enema 06/10 - Also receiving Miralax, Senna - If no BM today, will increase bowel regimen Chronic osteomyelitis - Areas of concern include sacrum and R toe - s/p Daptomycin. On Rifampin - ESR elevated at 66. CRP elevated at 11.82. Ordered so they can be trended throughout tx - Consider consulting Dr. Gar, although he has reportedly already stated this is not something that will heal at this point Stage IV sacral decubitus ulcer - Dr. Huertas consulted, appreciate recs * Wound vac placement. Opines this wound will never heal * Will follow and assess for possible debridement in the future - Wound care consulted - Palliative care consulted for goals of care Multiple skin wounds - In addition to sacral ulcer, Wound Care has documented various pictures of wounds on her back, b/l feet, and post R thigh - We appreciate wound care's involvement and will follow their recs BL pleural effusions - CXR with vascular congestion - BNP elevated at 364. Unknown baseline - Euvolemic on exam. Will not continue lasix at this time - Monitor fluid status. Caution with IVF Hydronephrosis/hydroureter - 1400mL > 1600mL output recorded. Continue to monitor, strict I/O. - No need to replace thibodeaux at this time T2DM Neglitinide DC'd due to hypoglycemia. BG has overall been well controlled. - continue SSI, ACHS accuchecks - may have regular diet CAD - Continue home medications CHF - Continue home medications - monitor fluid status Anemia Goal Hgb >8.0 given severe valvular disease. s/p 1u PRBC on 06/12. - continue to monitor and will transfuse as necessary HTN - Home medications as appropriate with BP - Continue to monitor HoThyroidism - TSH and fT4 nml Urinary incontinence - Chronic thibodeaux Code: DNI per daughter Diet: Regular DVT ppx: Lovenox IVF: None PCP: [facility] Dispo: Admitted to tele, initially for Obs due to AMS. Unclear baseline, will discuss with family again today. Given her large sacral wound which is unlikely to heal, possible worsening dementia the most appropriate disposition for pt may be palliative care/hospice. Will need to readdress goals of care with patient and family. Palliative care is consulted and we appreciate their help with this case. Addendum - Attending - Attending Attestation Date/Time: 06/13/20 [id number] I personally evaluated the patient and discussed the management with Dr. Napier. I agree with the History, Examination, Assessment and Plan documented above with any addition or exceptions noted below.
[2020-06-13] MEDS: Rifampin 300 MG CAP PO SCH (08:39)
[2020-06-13] MEDS: Enoxaparin Sodium 40 MG/0.4 ML SYRINGE SC SCH (08:39)
[2020-06-13] MEDS: Aspirin 81 mg Enteric Coated Tablet PO SCH (08:39)
[2020-06-13] MEDS: Polyethylene Glycol 3350 17 GM Packet PO SCH (08:39)
[2020-06-13] MEDS: Ascorbic Acid 500 mg Chewable Tablet PO SCH (08:39)
[2020-06-13] MEDS: Senokot S 8.6-50 MG TAB PO SCH ×2 (08:39→20:35)
[2020-06-13] MEDS: Ferrous Sulfate 325 MG TAB PO SCH (08:39)
[2020-06-13] MEDS: Clopidogrel Bisulfate 75 MG TAB PO SCH (08:39)
[2020-06-13] MEDS: Atorvastatin Calcium 20 MG TAB PO SCH (08:40)
[2020-06-13] MEDS: Morphine ER 15 MG TAB PO SCH ×2 (08:40→20:35)
[2020-06-13] MEDS: Midodrine HCl 5 MG TAB PO SCH (08:40)
[2020-06-13] MEDS: Zinc Sulfate 220 MG CAP PO SCH (08:40)
[2020-06-13] MEDS: Potassium Chloride 10 MEQ TAB PO SCH (08:40)
[2020-06-13] MEDS: HYDROcodone/Acetaminophen 10/325 mg Tablet PO SCH (10:27)
[2020-06-13] MEDS: Fluconazole In NaCl,Iso-Osm 400 MG in Premix Bag 1 BAG IVPB SCH (10:28)
--- NOTE | 2020-06-13 11:16 | PQF ---
Q64 2019 [facility] Updated: CLINICAL DOCUMENTATION CLARIFICATION FORM: Please check appropriate box(es): [ ] UTI please specify if due to or related to (as applicable): [ ] Indwelling catheter [ ] Unable to determine etiology UTI Site: [ ] Kidney [ ] Ureter [ ] Bladder [ ] Urethra [ ] Unable to determine Specify Organism (if known): [ ] Unknown organism [ X ] Contaminated urine specimen without UTI [ ] Other diagnosis [ ] Unable to determine In addition, please specify: Present on Admission (POA): [ X ] Yes [ ] No [ ] Unable to determine To be completed by CDI/Coding staff for physician review: Present Clinical Indicators - Signs / Symptoms / Labs Results and Location in Medical Record [ x ] Positive urinalysis w bacteria/elevated WBCs 06/10 labs show UA leuk est 500, wbc >50, bacteria +4 [x ] Urine culture 06/10 Yeast per lab [x ] UTI UTI per 06/13 PN([place]) Present Risk Factors Results and Location in Medical Record [ x ] History self-cath/indwelling catheter Chronic [place] per 06/13 PN([facility]) [ x] Debility / [facility] per 06/10 H&P([place]) [ x ] Immunocompromised large stage 4 decubitus ulcer per 06/10 H&P([place]) Present Treatments Results and Location in Medical Record [x ] Antibiotics Rocephin 2g IV 06/10 to Fluconazole 400 mg IV 06/11 to date per orders [x ] IVF 1 liter NS per 06/10 H&P([place]) [x ] Catheter cultured 06/10 per orders CDS/Meter Reader Signature: Dee Dee Sargent RN, CCDS Phone #: [phone] Date/Time: 06/13/2020 11:14 AM This is a permanent part of the Medical Record [facility]
--- NOTE | 2020-06-13 15:20 | PDOC.PALCO ---
Palliative Care Consult - Consult Details Requesting Physician: Dr North Reason for Consult: goals of care, family support, complex decision-making Family Members Present: Lily - Pertinent HPI 74 year old female who resides at [facility] who has had multiple hospital admissions since January 2020. Baseline is oriented to self, although converses easily. Assistance for ADL. MCC reports patient had a significant decrease in her normal verbal state/altered mental status, with hypotension. Sudden onset with no fever, vomiting, cough. 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 EMS was called and patient transported to [facility]. Suspected UTI, Pleural effusions, osteomyelitis to sacrum and right great toe. Admitted for further evaluation and medical management. Concern is multiple morbidities and poor response to antibiotic therapy to osteomyelitis. - Pertinent PMH CAD, CHF, Dementia, DM 2, Hypothyroid, OM great toe, chronic sacral decubitius ulcer stage 4, - Social History Smoking Status: Unknown if ever smoked Smoking: no tobacco exposure Alcohol Use: none Drug Use History: none Living Situation: intermediate resident - Medications MAR Reviewed: Yes - Allergies Allergies/Adverse Reactions: Allergies Allergy/AdvReac Type Severity Reaction Status Date / Time meperidine [From Demerol] Allergy Mild Rash Verified 06/10/20 23:18 Penicillins Allergy Mild Rash Verified 06/10/20 23:18 Milk Containing Products Allergy Unknown Verified 06/11/20 01:24 - Subjective Awake, alert. Converses easily. Non sensical. She believes that her daughter is 12 years old. Attempted to feed patient, she refused. Denies complaints but certainly not a reliable source for review of systems. - ROS Non Response: due to mental status - Objective Vital Signs: Vital Signs - Most Recent Temp Pulse Resp BP Pulse Ox 98.6 F 82 17 124/62 97 06/13/20 11:56 06/13/20 11:56 06/13/20 11:56 06/13/20 11:56 06/13/20 11:56 - Physical Exam Constitutional: NAD, confusion, ill appearing HEENT: EOMI, moist MMs, sclera anicteric Respiratory: no rales, no rhonchi, unlabored breathing Cardiovascular: RRR Gastrointestinal: soft, non-tender, positive bowel sounds Deviation from normal: [place] Musculoskeletal: no cyanosis, no clubbing Neurology: no focal deficits Skin: bruising, fragile Deviation from normal: wounds as per wound photos Deviation from normal: Alert, oriented to self. - Problem List (1) Palliative care encounter Code(s): Z51.5 - ENCOUNTER FOR PALLIATIVE CARE Current Visit: Yes Status: Acute (2) Decubitus ulcer, stage 4 with infection Code(s): L89.94 - PRESSURE ULCER OF UNSPECIFIED SITE, STAGE 4; L08.9 - LOCAL INFECTION OF THE SKIN AND SUBCUTANEOUS TISSUE, UNSP Current Visit: No Status: Acute (3) Osteomyelitis Code(s): M86.9 - OSTEOMYELITIS, UNSPECIFIED Current Visit: No Status: Acute Qualifiers: Osteomyelitis type: subacute Osteomyelitis location: other site Qualified Code(s): M86.28 - Subacute osteomyelitis, other site (4) Sepsis Code(s): A41.9 - SEPSIS, UNSPECIFIED ORGANISM Current Visit: No Status: Acute Qualifiers: Sepsis acute organ dysfunction status: without acute organ dysfunction (5) Congestive heart failure Code(s): I50.9 - HEART FAILURE, UNSPECIFIED Current Visit: No Status: Chronic Qualifiers: Heart failure type: systolic Heart failure chronicity: chronic Qualified Code(s): I50.22 - Chronic systolic (congestive) heart failure (6) Diabetes mellitus Code(s): E11.9 - TYPE 2 DIABETES MELLITUS WITHOUT COMPLICATIONS Current Visit: No Status: Chronic Qualifiers: Diabetes mellitus type: type 2 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 Not a reliable source. Communicated initially via phone with patient daughter who is Lily JENKINS. We reviewed recent multiple hospitalizations and declining status. She states that they use [facility] and the intermediate recently mentioned considering hospice. Lengthy discussion about quality of life, and comfort in the intermediate verses burden and impact of recurrent hospitalizations. Lily and her father plan on coming to the hospital this afternoon to further discuss goal of care, specifically to discuss consideration of hospice. Also will revisit resuscitation status. Communicated with palliative care team as well. Please refer to Palliative care notes in note section. [55] minutes spent on this encounter with >50% of the time in counseling and coordination of care. Thank you for this very appropriate consult.
[2020-06-14] MEDS: Levothyroxine Sodium 75 MCG TAB PO SCH (05:24)
--- NOTE | 2020-06-14 07:01 | PDOC.FM ---
- Subjective Subjective: No acute overnight events. Enema yesterday resulted in very small BM per report from nurse. Pt has no complaints this AM, pain well controlled. Family discussion yesterday with PC, , and daughter; considering hospice, will further discuss today. - Objective Vital Signs & Weight: Vital Signs (12 hours) Temp Pulse Resp BP Pulse Ox 06/14/20 04:00 98.1 F 89 14 126/61 94 L 06/14/20 00:00 79 06/13/20 20:00 98 06/13/20 19:34 97 F L 84 14 98 Weight Admit Weight 67.188 kg Weight 66.814 kg I&O: 06/13/20 06/14/20 06/15/20 06:59 06:59 06:59 Intake Total 1347 837 Output Total 1200 1050 Balance 147 -213 Result Diagrams: 06/13/20 04:15 06/13/20 04:15 Phys Exam - Physical Examination Constitutional: NAD HEENT: moist MMs, sclera anicteric Neck: supple Respiratory: clear to auscultation bilateral Cardiovascular: RRR systolic murmur Gastrointestinal: soft, non-tender moves bilateral UE Psychiatric: normal affect (pleasant) Deviation from normal: oriented to self Skin: cap refill <2 seconds Dx/Plan - Plan Plan: Encephalopathy, suspect due to chronic decline of mental status Not meeting sepsis criteria. At baseline per senior living. More interactive/improved mentation when family is present, although never fully oriented. - UCx grew yeast which is likely due to chronic colonization given chronic thibodeaux. DC fluconazole (06/11-06/13). - BCx NGTD x2 - unlikely that her current mental status is due to acute infection Constipation, concern for stercoral colitis - Rectal exam with no gross bleeding or abnormality - fecal disimpaction performed + enema 06/10 - Also receiving Miralax, Senna - small BM with enema yesterday, if no BM today would consider increasing senna to BID bud Chronic osteomyelitis - Areas of concern include sacrum and R toe - s/p Daptomycin. On Rifampin - ESR elevated at 66. CRP elevated at 11.82. Ordered so they can be trended throughout tx Stage IV sacral decubitus ulcer - Dr. Huertas consulted, appreciate recs * Wound vac placement. Opines this wound will never heal * Will follow and assess for possible debridement in the future - Wound care consulted - Palliative care consulted for goals of care; family meeting yesterday and they are considering hospice which may be the best option for her at this time given that her current wound is unlikely to heal with any amount of antibiotics. Multiple skin wounds - In addition to sacral ulcer, Wound Care has documented various pictures of wounds on her back, b/l feet, and post R thigh - We appreciate wound care's involvement and will follow their recs BL pleural effusions - CXR with vascular congestion - BNP elevated at 364. Unknown baseline - Euvolemic on exam. Will not continue lasix at this time - Monitor fluid status. Caution with IVF Hydronephrosis/hydroureter - 1400mL > 1600mL output recorded. Continue to monitor, strict I/O. - No need to replace thibodeaux at this time T2DM Neglitinide DC'd due to hypoglycemia. BG has overall been well controlled. - continue SSI, ACHS accuchecks - may have regular diet CAD - Continue home medications CHF - Continue home medications - monitor fluid status Anemia Goal Hgb >8.0 given severe valvular disease. s/p 1u PRBC on 06/12. - continue to monitor and will transfuse as necessary HTN - Home medications as appropriate with BP - Continue to monitor HoThyroidism - TSH and fT4 nml Urinary incontinence - Chronic thibodeaux Code: DNI per daughter Diet: Regular DVT ppx: Lovenox IVF: None PCP: [facility] Dispo: Admitted to tele, initially for Obs due to AMS. Unclear baseline, will discuss with family again today. Given her large sacral wound which is unlikely to heal, possible worsening dementia the most appropriate disposition for pt may be palliative care/hospice. Will f/u family decision today. Palliative care is consulted and we appreciate their help with this case. Addendum - Attending - Attending Attestation Date/Time: 06/14/20 1849 I personally evaluated the patient and discussed the management with Dr. Napier. I agree with the History, Examination, Assessment and Plan documented above with any addition or exceptions noted below. Patient with sacral ulcer that will never heal despite any surgical or medical treatment. Wound care on board. Family aware and we are hoping to hear from them today about a move to comfort measures given the wound. Pain control as needed.
[2020-06-14] MEDS: Ferrous Sulfate 325 MG TAB PO SCH (08:57)
[2020-06-14] MEDS: Zinc Sulfate 220 MG CAP PO SCH (08:57)
[2020-06-14] MEDS: Aspirin 81 mg Enteric Coated Tablet PO SCH (08:57)
[2020-06-14] MEDS: Midodrine HCl 5 MG TAB PO SCH (08:57)
[2020-06-14] MEDS: Atorvastatin Calcium 20 MG TAB PO SCH (08:57)
[2020-06-14] MEDS: Potassium Chloride 10 MEQ TAB PO SCH (08:57)
[2020-06-14] MEDS: Ascorbic Acid 500 mg Chewable Tablet PO SCH (08:57)
[2020-06-14] MEDS: Enoxaparin Sodium 40 MG/0.4 ML SYRINGE SC SCH (08:58)
[2020-06-14] MEDS: Polyethylene Glycol 3350 17 GM Packet PO SCH (08:58)
[2020-06-14] MEDS: Senokot S 8.6-50 MG TAB PO SCH ×2 (08:58→20:42)
[2020-06-14] MEDS: Clopidogrel Bisulfate 75 MG TAB PO SCH (08:58)
[2020-06-14] MEDS: Morphine ER 15 MG TAB PO SCH ×2 (08:58→20:43)
[2020-06-14] MEDS: Rifampin 300 MG CAP PO SCH (08:58)
[2020-06-14] MEDS: HYDROcodone/Acetaminophen 10/325 mg Tablet PO SCH (09:01)
[2020-06-14 12:24] VITALS: BMI 26.9
[2020-06-15] MEDS: Levothyroxine Sodium 75 MCG TAB PO SCH (05:25)
--- NOTE | 2020-06-15 06:06 | PDOC.FM ---
- Subjective Subjective: No acute overnight events. No complaints this AM. Denies abdominal pain, SOB. Pleasantly demented. - Objective Vital Signs & Weight: Vital Signs (12 hours) Temp Pulse Resp BP Pulse Ox 06/15/20 03:37 97.5 F L 87 14 101/59 L 99 06/15/20 00:00 94 06/14/20 20:00 100 06/14/20 19:00 97.7 F 68 14 123/58 L 100 Weight Admit Weight 67.188 kg Weight 77.973 kg I&O: 06/13/20 06/14/20 06/15/20 06:59 06:59 06:59 Intake Total 1347 837 360 Output Total 1200 1050 600 Balance 147 -213 -240 Result Diagrams: 06/13/20 04:15 06/13/20 04:15 Phys Exam - Physical Examination Constitutional: NAD HEENT: sclera anicteric dry MM Neck: supple Respiratory: no rales, clear to auscultation bilateral Cardiovascular: RRR, no significant murmur Gastrointestinal: soft, non-tender, no distention, positive bowel sounds Musculoskeletal: no edema R leg boot, L leg dressed, dry skin bilat follows commands Deviation from normal: oriented to self, pleasant Skin: normal turgor Dx/Plan - Plan Plan: Encephalopathy, suspect due to chronic decline of mental status Not meeting sepsis criteria. [facility]. More interactive/improved mentation when family is present, although never fully oriented. - UCx grew yeast which is likely due to chronic colonization given chronic thibodeaux. DC fluconazole (06/11-06/13). - BCx NGTD x2 - unlikely that her current mental status is due to acute infection Constipation, concern for stercoral colitis - Rectal exam with no gross bleeding or abnormality - fecal disimpaction performed + enema 06/10 - Also receiving Miralax, Senna Chronic osteomyelitis - Areas of concern include sacrum and R toe - s/p Daptomycin. On Rifampin Stage IV sacral decubitus ulcer - Dr. Huertas consulted, appreciate recs * Wound vac placement. Opines this wound will never heal * Will follow and assess for possible debridement in the future - Wound care consulted - Palliative care consulted for goals of care; family meeting yesterday and they are considering hospice which may be the best option for her at this time given that her current wound is unlikely to heal with any amount of antibiotics. Multiple skin wounds - In addition to sacral ulcer, Wound Care has documented various pictures of wounds on her back, b/l feet, and post R thigh - We appreciate wound care's involvement and will follow their recs BL pleural effusions Dry on exam today, lungs CTAB. Soft BPs. Likely 2/2 poor PO intake - 500 cc LR bolus - encourage PO intake Hydronephrosis/hydroureter - 1400mL > 1600mL output recorded. Continue to monitor, strict I/O. - No need to replace thibodeaux at this time T2DM Neglitinide DC'd due to hypoglycemia. BG has overall been well controlled. - continue SSI, ACHS accuchecks - may have regular diet CAD - Continue home medications CHF - Continue home medications - monitor fluid status Anemia Goal Hgb >8.0 given severe valvular disease. s/p 1u PRBC on 06/12. - continue to monitor and will transfuse as necessary HTN - Home medications as appropriate with BP - Continue to monitor HoThyroidism - TSH and fT4 nml Urinary incontinence - Chronic thibodeaux Code: DNI per daughter Diet: Regular DVT ppx: Lovenox IVF: None PCP: [facility] Dispo: Admitted to tele, initially for Obs due to AMS. Unclear baseline, will discuss with family again today. Given her large sacral wound which is unlikely to heal, possible worsening dementia the most appropriate disposition for pt may be palliative care/hospice. Will f/u family decision today. Palliative care is consulted and we appreciate their help with this case. Addendum - Attending - Attending Attestation Date/Time: 06/15/20 0734 I personally evaluated the patient and discussed the management with Dr. Napier. I agree with the History, Examination, Assessment and Plan documented above with any addition or exceptions noted below. Awaiting family decision on likely hospice/palliative care.
--- NOTE | 2020-06-15 08:11 | PRG ---
DATE OF SERVICE: 06/15/2020 SUBJECTIVE: Ms. Damon has no complaints. She awakens to voice this morning. She denies any abdominal or low back pain. Her wound VAC is in place. It was changed yesterday. OBJECTIVE: VITAL SIGNS: She is afebrile. Vial signs are stable. She has had a few small bowel movements. She is on a bowel regimen now. ABDOMEN: Soft, nontender, nondistended. Wound VAC is in place on sacral wound. ASSESSMENT: 1. Large sacral decubitus wound, stage IV with VAC just to control drainage unlike this is not going to heal. 2. Stercoral colitis. She has had a few bowel movements. I would keep her on the bowel regimen. 3. Palliative Care is seeing. PLAN: No plans for surgery. We will follow on an as-needed basis. Job ID: [id number]
[2020-06-15] MEDS: Enoxaparin Sodium 40 MG/0.4 ML SYRINGE SC SCH (08:52)
[2020-06-15] MEDS: Morphine ER 15 MG TAB PO SCH ×2 (08:53→20:29)
[2020-06-15] MEDS: Rifampin 300 MG CAP PO SCH (08:53)
[2020-06-15] MEDS: Potassium Chloride 10 MEQ TAB PO SCH (08:53)
[2020-06-15] MEDS: Atorvastatin Calcium 20 MG TAB PO SCH (08:53)
[2020-06-15] MEDS: Zinc Sulfate 220 MG CAP PO SCH (08:53)
[2020-06-15] MEDS: Ascorbic Acid 500 mg Chewable Tablet PO SCH (08:53)
[2020-06-15] MEDS: Polyethylene Glycol 3350 17 GM Packet PO SCH (08:53)
[2020-06-15] MEDS: Midodrine HCl 5 MG TAB PO SCH (08:53)
[2020-06-15] MEDS: Ferrous Sulfate 325 MG TAB PO SCH (08:53)
[2020-06-15] MEDS: Senokot S 8.6-50 MG TAB PO SCH ×2 (08:53→20:29)
[2020-06-15] MEDS: Clopidogrel Bisulfate 75 MG TAB PO SCH (08:53)
[2020-06-15] MEDS: Aspirin 81 mg Enteric Coated Tablet PO SCH (08:53)
[2020-06-15] MEDS: HYDROcodone/Acetaminophen 10/325 mg Tablet PO SCH (09:01)
[2020-06-15] MEDS ORDERED: Lactated Ringer's 500 ML IV SCH (09:15)
--- NOTE | 2020-06-15 15:27 | PDOC.PALPN ---
Palliative Progress Note - Subjective Sleeping but arousable. Pleasant, confused. Breakfast tray on table, patient states she is not hungry. - Objective Vital Signs: Vital Signs - Most Recent Temp Pulse Resp BP Pulse Ox 98.1 F 80 18 103/55 L 99 06/15/20 11:34 06/15/20 11:34 06/15/20 11:34 06/15/20 11:34 06/15/20 11:34 - Physical Exam Constitutional: NAD, confusion, ill appearing HEENT: EOMI, sclera anicteric Respiratory: clear to auscultation bilateral, no rhonchi, no wheezing, unlabored breathing Cardiovascular: no significant murmur, RRR Gastrointestinal: soft, non-tender, positive bowel sounds, incontinent Genitourinary: thibodeaux catheter Musculoskeletal: no clubbing, diffuse muscle atrophy Deviation from normal: contractures to toes Skin: fragile Deviation from normal: multiple areas of breakdown, Decubitus IV to sacrum - Assessment (1) Palliative care encounter Code(s): Z51.5 - ENCOUNTER FOR PALLIATIVE CARE Current Visit: Yes Status: Acute (2) Decubitus ulcer, stage 4 with infection Code(s): L89.94 - PRESSURE ULCER OF UNSPECIFIED SITE, STAGE 4; L08.9 - LOCAL INFECTION OF THE SKIN AND SUBCUTANEOUS TISSUE, UNSP Current Visit: No Status: Acute (3) Osteomyelitis Code(s): M86.9 - OSTEOMYELITIS, UNSPECIFIED Current Visit: No Status: Acute Qualifiers: Osteomyelitis type: subacute Osteomyelitis location: other site Qualified Code(s): M86.28 - Subacute osteomyelitis, other site (4) Sepsis Code(s): A41.9 - SEPSIS, UNSPECIFIED ORGANISM Current Visit: No Status: Acute Qualifiers: Sepsis acute organ dysfunction status: without acute organ dysfunction (5) Congestive heart failure Code(s): I50.9 - HEART FAILURE, UNSPECIFIED Current Visit: No Status: Chronic Qualifiers: Heart failure type: systolic Heart failure chronicity: chronic Qualified Code(s): I50.22 - Chronic systolic (congestive) heart failure (6) Diabetes mellitus Code(s): E11.9 - TYPE 2 DIABETES MELLITUS WITHOUT COMPLICATIONS Current Visit: No Status: Chronic Qualifiers: Diabetes mellitus type: type 2 Diabetes mellitus mcfp insulin use: with mcfp use Diabetes mellitus complication status: without complication Qualified Code(s): E11.9 - Type 2 diabetes mellitus without complications; 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 Understanding of poor meaningful recovery. Encouraged daughter to return to the hospital tomorrow 3/4 to revisit goal of care, address fears and barriers she and her father identify in their decisions. Emotional support offered. Will relay to Dr Bauman should daughter arrive for visit. [35] minutes spent on this encounter with >50% of the time in counseling and coordination of care. - ROS Non Response: due to mental status
[2020-06-15] MEDS: HYDROcodone/Acetaminophen 5/325 mg Tablet PO PRN (15:28)
[2020-06-16] MEDS: Levothyroxine Sodium 75 MCG TAB PO SCH (05:51)
--- NOTE | 2020-06-16 07:11 | PDOC.FM ---
- Subjective Subjective: No acute overnight events. Feeling hungry this AM. Denies abd pain, SOB, malaise. Pleasant spirits. - Objective Vital Signs & Weight: Vital Signs (12 hours) Temp Pulse Resp BP Pulse Ox 06/16/20 04:00 98.2 F 92 18 115/64 98 06/15/20 20:00 98 06/15/20 19:14 98.1 F 80 20 118/68 98 Weight Admit Weight 67.188 kg Weight 77.156 kg I&O: 06/15/20 06/16/20 06/17/20 06:59 06:59 06:59 Intake Total 600 720 Output Total 1150 1050 Balance -550 -330 Result Diagrams: 06/13/20 04:15 06/13/20 04:15 Phys Exam - Physical Examination Constitutional: NAD HEENT: moist MMs, sclera anicteric Neck: supple Respiratory: no wheezing, no rales, clear to auscultation bilateral Cardiovascular: RRR systolic murmur Gastrointestinal: soft, non-tender, no distention R foot in boot, L foot dressed moves bilateral UE Psychiatric: normal affect Deviation from normal: oriented to self Skin: cap refill <2 seconds Dx/Plan - Plan Plan: Cognitive Decline Not meeting sepsis criteria. At baseline per fdc. More interacti ve/improved mentation when family is present, although never fully oriented. - UCx grew yeast which is likely due to chronic colonization given chronic thibodeaux. DC fluconazole (06/11-06/13). - BCx NGTD x2 - unlikely that her current mental status is due to acute infection Constipation, concern for stercoral colitis - Rectal exam with no gross bleeding or abnormality - fecal disimpaction performed + enema 06/10 - Also receiving Miralax, Senna Chronic osteomyelitis - Areas of concern include sacrum and R toe - s/p Daptomycin. On Rifampin Stage IV sacral decubitus ulcer - Dr. Huertas consulted, appreciate recs * Wound vac placement. Opines this wound will never heal * Will follow and assess for possible debridement in the future - Wound care consulted - Palliative care consulted for goals of care; family meeting and they are considering hospice which may be the best option for her at this time given that her current wound is unlikely to heal with any amount of antibiotics. Multiple skin wounds - In addition to sacral ulcer, Wound Care has documented various pictures of wounds on her back, b/l feet, and post R thigh - We appreciate wound care's involvement and will follow their recs BL pleural effusions - monitor fluid/respiratory status Hydronephrosis/hydroureter - 1400mL > 1600mL output recorded. Continue to monitor, strict I/O. - No need to replace thibodeaux at this time T2DM Neglitinide DC'd due to hypoglycemia. BG has overall been well controlled. - continue SSI, ACHS accuchecks - may have regular diet CAD - Continue home medications CHF - Continue home medications - monitor fluid status Anemia Goal Hgb >8.0 given severe valvular disease. s/p 1u PRBC on 06/12. - continue to monitor and will transfuse as necessary HTN - Home medications as appropriate with BP - Continue to monitor HoThyroidism - TSH and fT4 nml Urinary incontinence - Chronic thibodeaux Code: DNI per daughter Diet: Regular DVT ppx: Lovenox IVF: None PCP: [facility] Dispo: Admitted to tele for initial concern of AMS. Pt now at baseline. PC consulted for consideration of hospice for sacral wound that will likely never heal. Awaiting family decision. If no decision today, will need to consider DC back to [facility]. Addendum - Attending - Attending Attestation Date/Time: 06/16/20 [id number] I personally evaluated the patient and discussed the management with Dr. Napier. I agree with the History, Examination, Assessment and Plan documented above with any addition or exceptions noted below. Patient stable for discharge home with hospice care.
[2020-06-16] MEDS: Aspirin 81 mg Enteric Coated Tablet PO SCH (08:46)
[2020-06-16] MEDS: Atorvastatin Calcium 20 MG TAB PO SCH (08:46)
[2020-06-16] MEDS: Clopidogrel Bisulfate 75 MG TAB PO SCH (08:46)
[2020-06-16] MEDS: Morphine ER 15 MG TAB PO SCH (08:46)
[2020-06-16] MEDS: Ferrous Sulfate 325 MG TAB PO SCH (08:46)
[2020-06-16] MEDS: Potassium Chloride 10 MEQ TAB PO SCH (08:48)
[2020-06-16] MEDS: Polyethylene Glycol 3350 17 GM Packet PO SCH (08:48)
[2020-06-16] MEDS: Ascorbic Acid 500 mg Chewable Tablet PO SCH (08:49)
[2020-06-16] MEDS: Senokot S 8.6-50 MG TAB PO SCH (08:49)
[2020-06-16] MEDS: Zinc Sulfate 220 MG CAP PO SCH (08:49)
[2020-06-16] MEDS: Rifampin 300 MG CAP PO SCH (08:49)
[2020-06-16] MEDS: Midodrine HCl 5 MG TAB PO SCH (08:50)
[2020-06-16] MEDS: Enoxaparin Sodium 40 MG/0.4 ML SYRINGE SC SCH (08:54)
[2020-06-16] MEDS: HYDROcodone/Acetaminophen 5/325 mg Tablet PO PRN (10:56)
[2020-06-16] MEDS: HYDROcodone/Acetaminophen 10/325 mg Tablet PO SCH (11:02)
--- NOTE | 2020-06-16 14:09 | PDOC.FMACP ---
Advance Care Planning - Problem (1) Palliative care encounter Status: Acute Code(s): Z51.5 - ENCOUNTER FOR PALLIATIVE CARE (2) Decubitus ulcer, stage 4 with infection Status: Acute Code(s): L89.94 - PRESSURE ULCER OF UNSPECIFIED SITE, STAGE 4; L08.9 - LOCAL INFECTION OF THE SKIN AND SUBCUTANEOUS TISSUE, UNSP (3) Osteomyelitis Status: Acute Code(s): M86.9 - OSTEOMYELITIS, UNSPECIFIED Qualifiers: Osteomyelitis type: subacute Osteomyelitis location: other site Qualified Code(s): M86.28 - Subacute osteomyelitis, other site (4) Sepsis Status: Acute Code(s): A41.9 - SEPSIS, UNSPECIFIED ORGANISM Qualifiers: Sepsis acute organ dysfunction status: without acute organ dysfunction (5) Congestive heart failure Status: Chronic Code(s): I50.9 - HEART FAILURE, UNSPECIFIED Qualifiers: Heart failure type: systolic Heart failure chronicity: chronic Qualified Code(s): I50.22 - Chronic systolic (congestive) heart failure (6) Diabetes mellitus Status: Chronic Code(s): E11.9 - TYPE 2 DIABETES MELLITUS WITHOUT COMPLICATIONS Qualifiers: Diabetes mellitus type: type 2 Diabetes mellitus half-way insulin use: with half-way use Diabetes mellitus complication status: without complication Qualified Code(s): E11.9 - Type 2 diabetes mellitus without complications; Z79.4 - skilled nursing (current) use of insulin - Note Participants: family, palliative care Summary: Palliative care has revisited Advanced Care Planning. The diagnosis, prognosis and goals of care were discussed. Appropriate forms and documentation to accomplish the goals of care were discussed. All questions were answered. Patient is alert, but lacking in medical capacity. Patient daughter and spouse have elected to transition to hospice/[facility] for management of chronic and terminal conditions with focus on comfort and quality of end of life care through symptom management. Rey Blood RNsub acute care nurse to facilitate completion of OOHDNAR> Emotional support and therapeutic listening. Time Spent (mins): 40
[2020-06-16 18:21] VITALS: BP 109/59; TEMP 97.9
== END 2020-06-16 17:50 | disposition hospice, home (50) | DRG 391 ==
LOC: ERS 12:44 → ERHOLD 17:05 → INTOOBSV 17:05 → OBSVTOIN 17:50 → 2NO 21:04
PROVIDERS: ADMIT Family Medicine; ATTEND Family Medicine
DX: K52.89 Other specified noninfective gastroenteritis and colitis (principal); L89.154 Pressure ulcer of sacral region, stage 4; M86.28 Subacute osteomyelitis, other site; Z66 Do not resuscitate; Z51.5 Encounter for palliative care; N13.30 Unspecified hydronephrosis; G93.49 Other encephalopathy; I25.10 Atherosclerotic heart disease of native coronary artery without angina pectoris; I11.0 Hypertensive heart disease with heart failure; E03.9 Hypothyroidism, unspecified; I50.9 Heart failure, unspecified; E11.649 Type 2 diabetes mellitus with hypoglycemia without coma; F03.90 Unspecified dementia, unspecified severity, without behavioral disturbance, psychotic disturbance, mood disturbance, and anxiety; D64.9 Anemia, unspecified; K56.41 Fecal impaction; R32 Unspecified urinary incontinence; Z74.01 Bed confinement status; Z89.421 Acquired absence of other right toe(s); Z95.5 Presence of coronary angioplasty implant and graft
CPT/HCPCS: 36415; 36416; 36430; 70450; 71045; 74177; 80048; 80053; 81003; 81015; 82550; 82553; 83880; 84134; 84145; 84439; 84443; 84484; 85007; 85025; 85027; 85652; 86140; 86850; 86900; 86901; 87040; 87086; 87635; 93005; 96365; J0696; J1450; J1650; J1940; P9016; Q9967; U0003; U0005